=== PATIENT | male | born 1955 | race Caucasian/White ===

== ENCOUNTER → 2018-05-15 | Outpatient (CLI) | payer OTHER ==
[~2018-05-15] MED LIST: ASPI81EC; ATEN25 PO; ATEN50; ATEN50 PO; BENZ100A PO; CHOL10002 PO; ERYT.5TO OD; HYDACE10B PO; LISI20 PO; LISI5 PO; LORA1 PO; METF500 PO; NAPR550 PO; OMEP20ER; OMEP20ER PO; OXYACE5T PO
== END | disposition home or self-care (01) ==
LOC: LAB 09:32 → LAB SHORT 09:32
DX: L60.2 Onychogryphosis (principal); B35.1 Tinea unguium
CPT/HCPCS: 88305; 88312

== ENCOUNTER 2020-05-04 13:59 | Inpatient (IN) | payer MEDICARE, OTHER ==
[~2020-05-04] VITALS: Ht 170.2 cm; Wt 65.9 kg
[~2020-05-04 13:59] MED LIST changes: -CHOL10002 PO; +VITAMIN D31000 UNI1 PO
[2020-05-04] MEDS ORDERED: HYDCHL25 PO (14:03)
[2020-05-04] MEDS ORDERED: METFORMIN HCL1000 M2 PO (14:03)
[2020-05-04] MEDS ORDERED: Cymbalta30 MG PO (14:03)
[2020-05-04] MEDS ORDERED: ATOR40TA PO (14:04)
[2020-05-04] MEDS ORDERED: NEURONTIN300 MG PO (14:04)
[2020-05-04 14:25] LABS: BASOPHILS ABSOLUTE AUTO 0.04 K/mm3 (0.00-0.23); BASOPHILS PERCENT AUTO 0 % (0-2); EOSINOPHILS ABSOLUTE AUTO 0.01 K/mm3 (0.00-0.68); EOSINOPHILS PERCENT AUTO 0 % (0-6); Hematocrit 52.7 % (37.0-53.0); Hemoglobin 16.6 g/dL (13.5-17.5); IMMATURE GRAN PERCENT AUTO 1 % (0-1); LYMPHOCYTES ABSOLUTE AUTO 0.83 K/mm3 (0.84-5.20); LYMPHOCYTES PERCENT AUTO 5 % (21-46); MONOCYTES PERCENT AUTO 3 % (4-13); Mean Corpuscular HGB 30.5 pg (26.0-34.0); Mean Corpuscular HGB Conc 31.5 g/dL (31.5-36.5); Mean Corpuscular Volume 97 fL (80-100); Mean Platelet Volume 12.3 fL (9.1-12.4); NEUTROPHILS ABSOLUTE AUTO 16.68 K/mm3 (1.96-9.15); NEUTROPHILS PERCENT AUTO 91 % (41-73); Platelet Count 207 K/mm3 (150-400); RDW Coefficient Variation 12.8 % (11.7-14.2); RDW Standard Deviation 45.3 fL (35.1-46.3); Red Blood Cell Count 5.45 M/mm3 (4.30-5.90); White Blood Cell Count 18.26 K/mm3 (4.00-11.30)
[2020-05-04 14:45] LABS: Beta-hydroxybutyrate 11.4 mg/dL (0.2-2.8); Ethanol (Alcohol), Blood, Med <3 mg/dL
[2020-05-04 14:47] LABS: Alanine Aminotransfer (ALT/SGP 63 U/L (12-78); Albumin, Blood 3.3 g/dL (3.4-5.0); Albumin/Globulin Ratio 0.7 (0.8-1.8); Alk Phos 219 U/L (50-136); Anion Gap 5 mmol/L (6-16); Aspartate Aminotrans (AST/SGOT 18 U/L (12-37); Bilirubin, Total 0.4 mg/dL (0.1-1.0); Blood Urea Nitrogen 63 mg/dL (8-24); Bun/Creatinine Ratio 58.3 (12.0-20.0); CO2, Blood 28 mmol/L (21-32); Calcium, Blood 9.8 mg/dL (8.5-10.1); Chloride, Blood 109 mmol/L (98-108); Creatinine, Blood 1.08 mg/dL (0.60-1.20); Globulin, Blood 4.8 g/dL (2.2-4.0); Glomerular Filtration Rate >60 (60-); Glucose, Blood 1278 mg/dL (70-99); Potassium, Blood 5.4 mmol/L (3.5-5.5); Sodium, Blood 142 mmol/L (136-145); Total Protein, Blood 8.1 g/dL (6.4-8.2)
[2020-05-04 15:05] LABS: Base Excess Venous -0.9 mmol/L; Bicarbonate Venous 22.2 mmol/L (24.0-30.0); PCO2 Venous 53.1 mmHg (38-42); PO2 Venous 47.4 mmHg (38-42); pH Blood Venous 7.29 (7.34-7.37)
[2020-05-04 15:10] LABS: Source, Urine Clean Catch
[2020-05-04 15:40] LABS: U Amphetamine Screen DETECTED; U Barbituate Screen Not Detected; U Benzodiazapine Screen Not Detected; U Buprenorphine Screen Not Detected; U Cannabinoids Screen Not Detected; U Cocaine Screen Not Detected; U Methadone Screen Not Detected; U Methamphetamine Screen DETECTED; U Opiates Screen Not Detected; U Oxycodone Screen Not Detected; U Phencyclidine Screen Not Detected; U Propoxyphene Screen Not Detected
[2020-05-04 15:44] LABS: Appearance, Urine Clear (Clear); Bilirubin, Urine Neg (Neg); Blood, Urine Neg (Neg); Color, Urine Yellow (P-Yellow); Glucose Qualitative, Urine 4+ (Neg); Ketones, Urine 1+ (Neg); Leukocyte Esterase, Urine Neg (Neg); Nitrite, Urine Neg (Neg); Protein, Urine Neg (Neg); Urobilinogen, Urine NORM (Normal)
[2020-05-04 16:58] LABS: Glucose, Blood 943 mg/dL (70-99)
--- NOTE | 2020-05-04 17:58 | NUR ---
ADMIT PT ARRIVED TO ICU 2 AT 1555 FROM ED. PT DROWSY BUT WAKES TO VOICE, ABLE TO ROLL AROUND IN THE BED. INSULIN INFUSING. PT WAS ABLE TO ANSWER ADMIT QUESTIONS. SAYS HE STOPPED TAKING ALL MEDICATIONS 3 WEEKS AGO. ADMITS TO USING METH 2 DAYS AGO ONLY AFTER BEING TOLD HIS URINE TESTED POSITIVE FOR IT. IV FLUIDS HOOKED UP. CHEM BG STILL READS HIGH, AWAITING LAB RESULT. PT EDUCATED ON PLAN OF CARE FOR THE NIGHT.
[2020-05-04 18:41] LABS: Anion Gap 7 mmol/L (6-16); Blood Urea Nitrogen 53 mg/dL (8-24); Bun/Creatinine Ratio 52.5 (12.0-20.0); CO2, Blood 26 mmol/L (21-32); Calcium, Blood 9.7 mg/dL (8.5-10.1); Chloride, Blood 119 mmol/L (98-108); Creatinine, Blood 1.01 mg/dL (0.60-1.20); Glomerular Filtration Rate >60 (60-); Glucose, Blood 741 mg/dL (70-99); Potassium, Blood 3.7 mmol/L (3.5-5.5)
[2020-05-04 18:50] LABS: Sodium, Blood 152 mmol/L (136-145)
--- NOTE | 2020-05-04 19:24 | NUR ---
ASSESSMENT/ASSUMED CARE PT LYING IN BED WITH EYES CLOSED. OPENS EYES TO VERBAL STIMULI AND TOUCH. SPEECH SLOW. STATES,"I'M IN THE HOSPITAL IN [place] AND IT'S THE S". PT UNABLE TO TELL WHAT CITY. REORIENTED TO PLACE AND TIME. FOLLOWS INSTRUCTIONS FOR TURNING. LUNGS CLEAR ON ROOMAIR. RESP EVEN AND NONLABORED. DENIES COUGH OR SOB. HEART RATE REGULAR IN THE 90'S. BP STABLE. BT+ ABD SOFT AND NONTENDER. IV 20G TO LEFT AC SALINE LOCKED, SITE CLEAR, FLUSHED WITHOUT DIFFICULTY. IV 18G TO RIGHT WRIST WITH LR AT 200 ML/HR AND INSULIN GTT AT 5 UNITS/HR. SITE CLEAR. PT REPOSITIONING SELF. BACK TO SLEEP QUICKLY.
[2020-05-04 19:37] LABS: Glucose, Blood 703 mg/dL (70-99)
[2020-05-04 20:25] LABS: Glucose (ISTAT POC) 554 mg/dL (70-99)
[2020-05-04 21:15] LABS: Glucose (ISTAT POC) 482 mg/dL (70-99)
[2020-05-04 22:07] LABS: Anion Gap 5 mmol/L (6-16); Blood Urea Nitrogen 47 mg/dL (8-24); Bun/Creatinine Ratio 52.8 (12.0-20.0); CO2, Blood 27 mmol/L (21-32); Chloride, Blood 124 mmol/L (98-108); Creatinine, Blood 0.89 mg/dL (0.60-1.20); Glomerular Filtration Rate >60 (60-); Glucose, Blood 484 mg/dL (70-99); Potassium, Blood 3.9 mmol/L (3.5-5.5); Sodium, Blood 156 mmol/L (136-145)
--- NOTE | 2020-05-04 22:22 | NUR ---
CALL TO HOSPITALIST CALL TO JANKI LOVE HOSPITALIST REGARDING NA LEVEL 156 AND CHLORIDE LEVEL 124. ORDER TO CHANGE IV FLUID TO D5 1/2 NS AT 200 ML/HR NOW.
[2020-05-05 02:01] LABS: BASOPHILS ABSOLUTE AUTO 0.05 K/mm3 (0.00-0.23); BASOPHILS PERCENT AUTO 0 % (0-2); EOSINOPHILS ABSOLUTE AUTO 0.32 K/mm3 (0.00-0.68); EOSINOPHILS PERCENT AUTO 2 % (0-6); Hematocrit 44.4 % (37.0-53.0); Hemoglobin 14.2 g/dL (13.5-17.5); IMMATURE GRAN ABSOLUTE AUTO 0.06 K/mm3 (0.00-0.10); IMMATURE GRAN PERCENT AUTO 0 % (0-1); LYMPHOCYTES ABSOLUTE AUTO 2.15 K/mm3 (0.84-5.20); LYMPHOCYTES PERCENT AUTO 14 % (21-46); MONOCYTES ABSOLUTE AUTO 0.66 K/mm3 (0.16-1.47); MONOCYTES PERCENT AUTO 4 % (4-13); Mean Corpuscular HGB 29.9 pg (26.0-34.0); Mean Platelet Volume 11.7 fL (9.1-12.4); NEUTROPHILS ABSOLUTE AUTO 12.26 K/mm3 (1.96-9.15); NEUTROPHILS PERCENT AUTO 79 % (41-73); Platelet Count 183 K/mm3 (150-400); RDW Coefficient Variation 13.1 % (11.7-14.2); RDW Standard Deviation 45.1 fL (35.1-46.3); Red Blood Cell Count 4.75 M/mm3 (4.30-5.90)
[2020-05-05 02:02] LABS: Mean Corpuscular Volume 94 fL (80-100)
[2020-05-05 02:14] LABS: Anion Gap 0 mmol/L (6-16); Blood Urea Nitrogen 40 mg/dL (8-24); Bun/Creatinine Ratio 41.4 (12.0-20.0); CO2, Blood 32 mmol/L (21-32); Calcium, Blood 9.3 mg/dL (8.5-10.1); Chloride, Blood 127 mmol/L (98-108); Creatinine, Blood 0.97 mg/dL (0.60-1.20); Glomerular Filtration Rate >60 (60-); Glucose, Blood 289 mg/dL (70-99); Potassium, Blood 3.8 mmol/L (3.5-5.5); Sodium, Blood 159 mmol/L (136-145)
--- NOTE | 2020-05-05 03:16 | NUR ---
IV FLUID CALL TO DR STOCKTON REGARDING INCREASE IN SODIUM, CHANGED IV FLUID TO D5W AT 100 ML/HR FOR 1 1/2 LITERS
--- NOTE | 2020-05-05 04:50 | NUR ---
BLOOD GLUCOSE PLACED INSULIN ON HOLD BLOOD GLUCOSE DOWN TO 101. CONT PT ON D5W AT 100 ML/HR.
--- NOTE | 2020-05-05 05:56 | NUR ---
SHIFT SUMMARY PT SLEEPING, AWAKENS EASILY. PT MOVING SELF IN BED. BED ALARM ON. PT BACK TO SLEEP QUICKLY WHEN UNDISTURBED. DENIES PAIN. A&O TO SELF AND PLACE ONLY. REORIENTED FREQUENTLY. NOT USING THE CALL LIGHT. IV FLUID CHANGED FROM LR TO D5 1/2 THAN TO D5W AT 100 ML/HR DUE TO INCREASE IN SODIUM LEVELS. INSULIN GTT STOPPED FOR ONE HOUR BUT RESTARTED AT 0545 AT 2 UNITS/HR DUE TO BLOOD GLUCOSE AT 211 FROM 101. LABS SENT AT 0545. VSS. REPORT TO ON COMING NURSE
[2020-05-05 06:15] LABS: Anion Gap 0 mmol/L (6-16); Blood Urea Nitrogen 34 mg/dL (8-24); Bun/Creatinine Ratio 35.6 (12.0-20.0); CO2, Blood 32 mmol/L (21-32); Chloride, Blood 127 mmol/L (98-108); Creatinine, Blood 0.96 mg/dL (0.60-1.20); Glomerular Filtration Rate >60 (60-); Glucose, Blood 211 mg/dL (70-99); Potassium, Blood 4.3 mmol/L (3.5-5.5); Sodium, Blood 159 mmol/L (136-145)
--- NOTE | 2020-05-05 08:00 | NUR ---
PT OPENED HIS EYES TO VOICE. ORIENTED TO PERSON, PLACE, AND ABLE TO STATE HIS FULL NAME, , AND THE YEAR. PT DENIES PAIN. GENERALLY WEAK, BUT VANG AND ABLE TO REPOSITION HIMSELF IN BED WITH VERBAL PROMPT. PT VERBAL RESPONSES ARE SLOW, BUT HE APPEARS LESS CONFUSED THIS AM. ECG SHOWS ST. BP WDL. LUNGS CLEARS-NO NOTED SOB OR COUGH. MAINTAINS SATS>90% ON RA. NPO EXCEPT FOR MEDS. PT ABLE TO TAKE HIS PO MEDS WITH SIPS OF H2O WITHOUT DIFFICULTY. HE DENIES NAUSEA THIS AM. AM CARE DONE AND OFFERED PT THE URINAL. PT ATTEMPTED TO VOID, BUT STATES "I JUST DON'T FEEL LIKE I HAVE TO GO."
--- NOTE | 2020-05-05 08:42 | NUR ---
DR. BARROS IN TO SEE PT. ORDERS RECEIVED. IVF INCREASED TO 150 CC/HR. WILL INITIATE CLEAR LIQUID DIET TOLERATED. RE-CHECK ELECTROLYTES @ 1500.
[2020-05-05 15:44] LABS: Anion Gap 2 mmol/L (6-16); Blood Urea Nitrogen 31 mg/dL (8-24); Bun/Creatinine Ratio 31.5 (12.0-20.0); CO2, Blood 29 mmol/L (21-32); Calcium, Blood 8.7 mg/dL (8.5-10.1); Chloride, Blood 117 mmol/L (98-108); Creatinine, Blood 0.98 mg/dL (0.60-1.20); Glomerular Filtration Rate >60 (60-); Glucose, Blood 590 mg/dL (70-99); Potassium, Blood 3.7 mmol/L (3.5-5.5)
[2020-05-05 15:51] LABS: Sodium, Blood 148 mmol/L (136-145)
--- NOTE | 2020-05-05 16:15 | NUR ---
PT RESTING QUIETLY WHEN NOT DISTURBED. A&O X 3 WHILE AWAKE. CHEMISTRY RESULTS PHONED TO DR. BIRMINGHAM. AWARE THAT GLUCOSE 590. D5 DISCONTINUED. PT MED WITH LANTUS 10 UNITS SC AND 12 UNITS HUMALOG PER SLIDING SCALE-RE CHECK CBG IN 1 HOUR. REPORT PHONED TO KHADAR TEJEDA IN PREP TO TRANSFER PT TO ROOM 336.
--- NOTE | 2020-05-05 17:28 | NUR ---
1705 ASSUMED CARE OF PT. REPORT FROM DAMEON RUBALCAVA. PT ALERT AND ORIENTED AND ABLE TO EXPRESS HIS NEEDS. PT ABLE TO TRANSFER TO BED VIA FWW. PT RESTING AT THIS TIME. CALL LIGHT WITHIN REACH.
--- NOTE | 2020-05-05 18:21 | NUR ---
PT TRANSFERRED THIS SHIFT FROM ICU. HE IS RESTING IN BED, NO COMPLAINTS. CALL LIGHT WITHIN REACH. NO ACUTE CHANGES.
[2020-05-06 05:32] LABS: BASOPHILS ABSOLUTE AUTO 0.04 K/mm3 (0.00-0.23); BASOPHILS PERCENT AUTO 0 % (0-2); EOSINOPHILS ABSOLUTE AUTO 0.53 K/mm3 (0.00-0.68); EOSINOPHILS PERCENT AUTO 4 % (0-6); Hematocrit 46.7 % (37.0-53.0); Hemoglobin 14.9 g/dL (13.5-17.5); IMMATURE GRAN ABSOLUTE AUTO 0.06 K/mm3 (0.00-0.10); IMMATURE GRAN PERCENT AUTO 1 % (0-1); LYMPHOCYTES PERCENT AUTO 15 % (21-46); MONOCYTES PERCENT AUTO 7 % (4-13); Mean Corpuscular HGB 30.5 pg (26.0-34.0); Mean Corpuscular HGB Conc 31.9 g/dL (31.5-36.5); Mean Corpuscular Volume 96 fL (80-100); Mean Platelet Volume 11.4 fL (9.1-12.4); NEUTROPHILS ABSOLUTE AUTO 8.82 K/mm3 (1.96-9.15); NEUTROPHILS PERCENT AUTO 73 % (41-73); Platelet Count 158 K/mm3 (150-400); RDW Coefficient Variation 13.3 % (11.7-14.2); RDW Standard Deviation 47.4 fL (35.1-46.3); Red Blood Cell Count 4.88 M/mm3 (4.30-5.90); White Blood Cell Count 12.05 K/mm3 (4.00-11.30)
[2020-05-06 06:06] LABS: Alanine Aminotransfer (ALT/SGP 36 U/L (12-78); Albumin, Blood 2.5 g/dL (3.4-5.0); Albumin/Globulin Ratio 0.6 (0.8-1.8); Alk Phos 144 U/L (50-136); Anion Gap 3 mmol/L (6-16); Aspartate Aminotrans (AST/SGOT 18 U/L (12-37); Bilirubin, Total 0.6 mg/dL (0.1-1.0); Blood Urea Nitrogen 27 mg/dL (8-24); Bun/Creatinine Ratio 26.2 (12.0-20.0); CO2, Blood 31 mmol/L (21-32); Chloride, Blood 115 mmol/L (98-108); Creatinine, Blood 1.03 mg/dL (0.60-1.20); Glomerular Filtration Rate >60 (60-); Glucose, Blood 380 mg/dL (70-99); Potassium, Blood 3.8 mmol/L (3.5-5.5); Sodium, Blood 149 mmol/L (136-145); Total Protein, Blood 6.5 g/dL (6.4-8.2)
--- NOTE | 2020-05-06 06:21 | NUR ---
SHIFT SUMMARY PT IS A 65 Y/O MALE, ADMITTED FOR HYPERGLYCEMIA. HE IS A&O X 3, SBA TO THE BATHROOM C A FWW. AT HS, PT'S BLOOD SUGAR WAS 485. THE HOSPITALIST RUBBER CUTTING MACHINE TENDER JANKI WAS NOTIFIED, AND A OT DOSE OF HUMALOG 12 UNITS WAS ORDERED AND ADMINISTERED. PER AM LABS, PT'S AM BLOOD SUGAR WAS 380. NO COMPLAINTS OF PAIN, NAUSEA OR SOB. VITAL SIGNS STABLE. NO ACUTE CHANGES IN PT CONDITION NOTED. WILL CONTINUE TO MONITOR AND TREAT PER EMAR UNTIL HAND OFF TO DAY SHIFT RN.
--- NOTE | 2020-05-06 11:44 | NUR ---
CALLED DR BIRMINGHAM, G 472. GIVE 20 U HUMALOG.
--- NOTE | 2020-05-06 13:00 | NUR ---
SPOKE TO DR MALIK SIERRA THIS AM. DR CARY WILL REVIEW.
--- NOTE | 2020-05-06 18:26 | NUR ---
PT PLEASANT TODAY. SUGAR DOWN A LITTLE THIS CRISTINA AT 298. HIGH SLIDING SCALE STARTED THIS CRISTINA. BP WAS UP THIS AM AND NOON. NEW ORDERS. BP DOWN WITH NEW BP MED STARTED MIDDAY TODAY. NO NEW CONCERNS AT THIS TIME. BED IN LOW POSITION, CALL LITE IN REACH, CALLS APPROP
--- NOTE | 2020-05-07 05:20 | NUR ---
SHIFT SUMMARY PT IS A 65 Y/O MALE, ADMITTED FOR HYPERGLYCEMIA. HE IS A&O X 3, INDEPENDENT IN THE ROOM WITH A FWW. HS BLOOD SUGAR WAS STILL ELEVATED AT 323. NO COMPLAINTS OF PAIN, NAUSEA OR SOB DURING THE NIGHT. VITAL SIGNS STABLE. NO ACUTE CHANGES IN PT CONDITION NOTED DURING THE NIGHT. WILL CONTINUE TO MONITOR AND TREAT PER EMAR UNTIL HAND OFF TO DAY SHIFT RN.
[2020-05-07 06:03] LABS: BASOPHILS ABSOLUTE AUTO 0.02 K/mm3 (0.00-0.23); BASOPHILS PERCENT AUTO 0 % (0-2); EOSINOPHILS ABSOLUTE AUTO 0.38 K/mm3 (0.00-0.68); EOSINOPHILS PERCENT AUTO 5 % (0-6); Hemoglobin 13.5 g/dL (13.5-17.5); IMMATURE GRAN ABSOLUTE AUTO 0.03 K/mm3 (0.00-0.10); IMMATURE GRAN PERCENT AUTO 0 % (0-1); LYMPHOCYTES ABSOLUTE AUTO 1.75 K/mm3 (0.84-5.20); LYMPHOCYTES PERCENT AUTO 21 % (21-46); MONOCYTES ABSOLUTE AUTO 0.48 K/mm3 (0.16-1.47); MONOCYTES PERCENT AUTO 6 % (4-13); Mean Corpuscular HGB 30.5 pg (26.0-34.0); Mean Corpuscular HGB Conc 32.1 g/dL (31.5-36.5); Mean Corpuscular Volume 95 fL (80-100); Mean Platelet Volume 11.8 fL (9.1-12.4); NEUTROPHILS ABSOLUTE AUTO 5.85 K/mm3 (1.96-9.15); NEUTROPHILS PERCENT AUTO 69 % (41-73); Platelet Count 152 K/mm3 (150-400); RDW Coefficient Variation 12.5 % (11.7-14.2); RDW Standard Deviation 43.8 fL (35.1-46.3); Red Blood Cell Count 4.43 M/mm3 (4.30-5.90); White Blood Cell Count 8.51 K/mm3 (4.00-11.30)
[2020-05-07 06:28] LABS: Alanine Aminotransfer (ALT/SGP 34 U/L (12-78); Albumin, Blood 2.2 g/dL (3.4-5.0); Albumin/Globulin Ratio 0.6 (0.8-1.8); Alk Phos 124 U/L (50-136); Anion Gap 6 mmol/L (6-16); Aspartate Aminotrans (AST/SGOT 21 U/L (12-37); Bilirubin, Total 0.8 mg/dL (0.1-1.0); Blood Urea Nitrogen 24 mg/dL (8-24); Bun/Creatinine Ratio 26.6 (12.0-20.0); CO2, Blood 28 mmol/L (21-32); Calcium, Blood 8.4 mg/dL (8.5-10.1); Chloride, Blood 109 mmol/L (98-108); Globulin, Blood 3.8 g/dL (2.2-4.0); Glomerular Filtration Rate >60 (60-); Glucose, Blood 317 mg/dL (70-99); Potassium, Blood 3.5 mmol/L (3.5-5.5); Sodium, Blood 143 mmol/L (136-145)
[2020-05-07] MEDS ORDERED: AMLO5 PO (11:50)
[2020-05-07] MEDS ORDERED: GLIP5 PO (11:51)
[2020-05-07] MEDS ORDERED: BASAGLAR K100 UNIT/1 SC (11:51)
[2020-05-07] MEDS ORDERED: NICO21TP TOP (11:52)
[2020-05-07] MEDS ORDERED: HUMALOG KW100 UNIT/1 SC (11:52)
--- NOTE | 2020-05-07 12:30 | NUR ---
DISCHARGE SUMMARY PATIENT IS ALERT AND ORIENTED. HIS IV WAS REMOVED. PATIENT WAS WALKED THROUGH HIS INSULIN ADMINISTRATION. NURSE WALKED THE PATIENT THROUGH WHERE TO INSERT HIS INSULIN AND HOW TO ADMINISTER WELL HOW MUCH. PATIENT WHEELED DOWN BY SAMPLE HAND.
== END 2020-05-07 12:25 | disposition home or self-care (01) | DRG 638 ==
LOC: ER 13:59 → ICUW 16:03 → ICUE 16:03 → ICUW 16:03 → ICUE 16:29 → MEDS 05-05 17:02
PROVIDERS: Internal Medicine; Nurse Practitioner Acute Care; Student in an Organized Health Care Education/Training Program; ADMIT Hospitalist
DX: E11.00 Type 2 diabetes mellitus with hyperosmolarity without nonketotic hyperglycemic-hyperosmolar coma (NKHHC) (principal); E87.0 Hyperosmolality and hypernatremia; I10 Essential (primary) hypertension; F17.210 Nicotine dependence, cigarettes, uncomplicated; F19.10 Other psychoactive substance abuse, uncomplicated; J44.9 Chronic obstructive pulmonary disease, unspecified; Z91.14 Patient's other noncompliance with medication regimen; Z88.0 Allergy status to penicillin; Z79.84 Long term (current) use of oral hypoglycemic drugs
CPT/HCPCS: 36415; 71045; 80048; 80053; 81003; 82010; 82803; 82947; 83690; 85025; 96361; 96374; 99285-25; A9270; A9270-GY; G0480; J1650; J1815; J2405; J7042; J7070; J7120

== ENCOUNTER 2021-11-16 17:56 | Inpatient (IN) | payer MEDICARE, OTHER ==
[~2021-11-16] VITALS: Ht 172.7 cm; Wt 60.1 kg
[~2021-11-16 17:56] MED LIST changes: +AMLO5 PO; +ATOR20 PO; +BASAGLAR K100 UNIT/1 SC; +Cymbalta30 MG PO; +GLIP5 PO; +HUMALOG KW100 UNIT/1 SC; +HYDCHL25 PO; +METFORMIN HCL1000 M2 PO; +NEURONTIN300 MG PO; +NICO21TP TOP
[2021-11-16 18:33] LABS: BASOPHILS ABSOLUTE AUTO 0.02 K/mm3 (0.00-0.23); BASOPHILS PERCENT AUTO 0 % (0-2); EOSINOPHILS ABSOLUTE AUTO 0.01 K/mm3 (0.00-0.68); EOSINOPHILS PERCENT AUTO 0 % (0-6); Hematocrit 46.8 % (37.0-53.0); Hemoglobin 15.8 g/dL (13.5-17.5); IMMATURE GRAN ABSOLUTE AUTO 0.08 K/mm3 (0.00-0.10); IMMATURE GRAN PERCENT AUTO 1 % (0-1); LYMPHOCYTES ABSOLUTE AUTO 0.94 K/mm3 (0.84-5.20); LYMPHOCYTES PERCENT AUTO 7 % (21-46); MONOCYTES ABSOLUTE AUTO 0.39 K/mm3 (0.16-1.47); MONOCYTES PERCENT AUTO 3 % (4-13); Mean Corpuscular HGB 31.4 pg (26.0-34.0); Mean Corpuscular HGB Conc 33.8 g/dL (31.5-36.5); Mean Corpuscular Volume 93 fL (80-100); Mean Platelet Volume 12.8 fL (9.1-12.4); NEUTROPHILS ABSOLUTE AUTO 12.29 K/mm3 (1.96-9.15); NEUTROPHILS PERCENT AUTO 90 % (41-73); Platelet Count 235 K/mm3 (150-400); RDW Coefficient Variation 12.6 % (11.7-14.2); RDW Standard Deviation 43.5 fL (35.1-46.3); Red Blood Cell Count 5.03 M/mm3 (4.30-5.90); White Blood Cell Count 13.73 K/mm3 (4.00-11.30)
[2021-11-16 18:59] LABS: Base Excess Venous -2.4 mmol/L; Bicarbonate Venous 22.1 mmol/L (24.0-30.0); PCO2 Venous 45.7 mmHg (38-42); PO2 Venous 87.1 mmHg (38-42); pH Blood Venous 7.32 (7.34-7.37)
[2021-11-16 19:09] LABS: U Amphetamine Screen Not Detected; U Barbituate Screen Not Detected; U Benzodiazapine Screen Not Detected; U Cannabinoids Screen Not Detected; U Cocaine Screen Not Detected; U Methadone Screen Not Detected; U Methamphetamine Screen Not Detected; U Opiates Screen Not Detected; U Phencyclidine Screen Not Detected
[2021-11-16 19:10] LABS: U Buprenorphine Screen Not Detected; U Oxycodone Screen Not Detected; U Propoxyphene Screen Not Detected
[2021-11-16 19:10] LABS: Troponin I <0.015 ng/mL (0.000-0.040)
[2021-11-16 19:14] LABS: Thyroid Stimulating Hormone 0.218 uIU/mL (0.360-4.800)
[2021-11-16 19:26] LABS: Alanine Aminotransfer (ALT/SGP 37 U/L (12-78); Albumin, Blood 2.9 g/dL (3.4-5.0); Albumin/Globulin Ratio 0.7 (0.8-1.8); Alk Phos 176 U/L (50-136); Anion Gap 11 mmol/L (6-16); Aspartate Aminotrans (AST/SGOT 19 U/L (12-37); Bilirubin, Total 0.4 mg/dL (0.1-1.0); Blood Urea Nitrogen 92 mg/dL (8-24); Bun/Creatinine Ratio 69.2 (12.0-20.0); CO2, Blood 22 mmol/L (21-32); Calcium, Blood 9.1 mg/dL (8.5-10.1); Chloride, Blood 105 mmol/L (98-108); Creatinine, Blood 1.33 mg/dL (0.60-1.20); Globulin, Blood 4.2 g/dL (2.2-4.0); Glomerular Filtration Rate 54 (60-); Glucose, Blood 1359 mg/dL (70-99); Potassium, Blood 5.4 mmol/L (3.5-5.5); Sodium, Blood 138 mmol/L (136-145); Total Protein, Blood 7.1 g/dL (6.4-8.2)
[2021-11-16 19:29] LABS: Influenza A, PCR NEGATIVE (NEGATIVE); Influenza B, PCR NEGATIVE (NEGATIVE); Resp Syncytial Virus, PCR NEGATIVE (NEGATIVE); SARS-Cov-2 (COVID-19) PCR, MMC NEGATIVE (NEGATIVE)
[2021-11-16 20:39] LABS: Thyroxine (T4) 7.2 ug/dL (4.5-12.1)
[2021-11-16 20:41] LABS: Triiodothyronine, Free 2.07 pg/mL (2.18-3.98)
[2021-11-16 21:07] LABS: Bun/Creatinine Ratio 68.5 (12.0-20.0); Calcium, Blood 8.4 mg/dL (8.5-10.1); Creatinine, Blood 1.27 mg/dL (0.60-1.20); Potassium, Blood 4.9 mmol/L (3.5-5.5)
--- NOTE | 2021-11-16 22:00 | NUR ---
Recieved patient from ED, admission complete. confused to time and situation. insulin drip infusing. partial bath given due to poor hygiene. feet very dirty and stained, unable to clean due to pain in feet. yells out with touch. falls asleep when nurse not talking to, wakes up very disoriented, not knowing what location and situation is. easily calmed.
[2021-11-16 22:38] LABS: Glucose, Blood 878 mg/dL (70-99)
[2021-11-17 00:24] LABS: Glucose, Blood 663 mg/dL (70-99)
[2021-11-17 01:43] LABS: Anion Gap 7 mmol/L (6-16); Blood Urea Nitrogen 81 mg/dL (8-24); Bun/Creatinine Ratio 67.5 (12.0-20.0); CO2, Blood 26 mmol/L (21-32); Calcium, Blood 8.8 mg/dL (8.5-10.1); Chloride, Blood 120 mmol/L (98-108); Glomerular Filtration Rate >60 (60-); Glucose, Blood 556 mg/dL (70-99); Potassium, Blood 4.2 mmol/L (3.5-5.5); Sodium, Blood 153 mmol/L (136-145)
[2021-11-17 03:50] LABS: BASOPHILS ABSOLUTE AUTO 0.03 K/mm3 (0.00-0.23); BASOPHILS PERCENT AUTO 0 % (0-2); EOSINOPHILS ABSOLUTE AUTO 0.11 K/mm3 (0.00-0.68); EOSINOPHILS PERCENT AUTO 1 % (0-6); Hematocrit 37.9 % (37.0-53.0); IMMATURE GRAN ABSOLUTE AUTO 0.09 K/mm3 (0.00-0.10); IMMATURE GRAN PERCENT AUTO 1 % (0-1); LYMPHOCYTES ABSOLUTE AUTO 1.92 K/mm3 (0.84-5.20); LYMPHOCYTES PERCENT AUTO 12 % (21-46); MONOCYTES ABSOLUTE AUTO 0.47 K/mm3 (0.16-1.47); MONOCYTES PERCENT AUTO 3 % (4-13); Mean Corpuscular HGB 31.4 pg (26.0-34.0); Mean Corpuscular HGB Conc 34.3 g/dL (31.5-36.5); Mean Corpuscular Volume 92 fL (80-100); Mean Platelet Volume 12.1 fL (9.1-12.4); NEUTROPHILS ABSOLUTE AUTO 12.89 K/mm3 (1.96-9.15); NEUTROPHILS PERCENT AUTO 83 % (41-73); Platelet Count 229 K/mm3 (150-400); RDW Coefficient Variation 12.8 % (11.7-14.2); RDW Standard Deviation 42.1 fL (35.1-46.3); Red Blood Cell Count 4.14 M/mm3 (4.30-5.90); White Blood Cell Count 15.51 K/mm3 (4.00-11.30)
[2021-11-17 05:07] LABS: Alanine Aminotransfer (ALT/SGP 35 U/L (12-78); Albumin, Blood 2.4 g/dL (3.4-5.0); Albumin/Globulin Ratio 0.8 (0.8-1.8); Alk Phos 140 U/L (50-136); Anion Gap 6 mmol/L (6-16); Aspartate Aminotrans (AST/SGOT 20 U/L (12-37); Bilirubin, Total 0.3 mg/dL (0.1-1.0); Blood Urea Nitrogen 77 mg/dL (8-24); CO2, Blood 26 mmol/L (21-32); Calcium, Blood 8.5 mg/dL (8.5-10.1); Chloride, Blood 120 mmol/L (98-108); Creatinine, Blood 1.15 mg/dL (0.60-1.20); Globulin, Blood 3.2 g/dL (2.2-4.0); Glomerular Filtration Rate >60 (60-); Glucose, Blood 382 mg/dL (70-99); Magnesium, Blood 2.4 mg/dL (1.6-2.4); Phosphorus, Blood 3.4 mg/dL (2.5-4.9); Potassium, Blood 4.4 mmol/L (3.5-5.5); Sodium, Blood 152 mmol/L (136-145); Total Protein, Blood 5.6 g/dL (6.4-8.2)
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
--- NOTE | 2021-11-17 07:58 | NUR ---
ADEBAYO from [facility] RN at 0715. 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 Anxiety inferred. Patient is oriented to self/place/situation but repeatedly states it is year 2002 even after correction. Negative for ICU delirium per SAVEHARRT assessment. Dr. Hoyt notified at 0755 of potential for alcohol withdrawal with CIWA 12-14; pt states last drink 2 days ago, states long hx of daily alcohol use consistent with spouse description of many years of ETOH abuse. Recommended consideration for CIWA protocol. Wrapped IVs as pt is pullling at lines.
[2021-11-17 09:17] LABS: Anion Gap 3 mmol/L (6-16); Blood Urea Nitrogen 62 mg/dL (8-24); CO2, Blood 24 mmol/L (21-32); Calcium, Blood 8.2 mg/dL (8.5-10.1); Chloride, Blood 119 mmol/L (98-108); Creatinine, Blood 1.05 mg/dL (0.60-1.20); Glomerular Filtration Rate >60 (60-); Glucose, Blood 262 mg/dL (70-99); Potassium, Blood 4.1 mmol/L (3.5-5.5); Sodium, Blood 146 mmol/L (136-145)
--- NOTE | 2021-11-17 09:43 | NUR ---
0930: PT APPEARS MUCH MORE CALM/LESS AGITATED WITH NO HALLUCINATIONS X 1 HR. CIWA 7. MD AWARE. VERBAL ORDERS FROM DR. PLASCENCIA TO GIVE 10 UNITS SC INSULIN GLARGINE ONCE. PLAN TO D/C INSULIN GTT IF BGL <250MG/DL X 6 HRS. PLAN FOR 1 ADDITIONAL LITER OF 1/2 NS AT 100ML/HR. CALL MD IN AFTERNOON FOR POTENTIAL REVIEW FOR STATUS CHANGE.
--- NOTE | 2021-11-17 09:48 | NUR ---
PT UP TO COMMODE W/O ADVERSE EVENT. 0945: US AT BEDSIDE (ECHO).
--- NOTE | 2021-11-17 12:51 | NUR ---
PT ATE 100% OF LUNCH. UP TO COMMODE WITH ASSISTANCE, UNSTEADY GAIT. CHANGED ALL LINENS/GOWN.
--- NOTE | 2021-11-17 14:23 | NUR ---
OXYGEN @ 1415: PT O2 SATS IN 87-89% RANGE WHEN PATIENT ATTEMPTING TO SLEEP. INCREASED COUGHING NOTED, SOME NASAL DISCHARGE. MD NOTIFIED OF INCREASED OXYGEN REQUIREMENT. PT DENIES CP/SOB. ON 2L PER NC, SATS 93-94%. 1430: BLOOD DRAWN AND SENT TO LAB. GLUCOMETER CLEANED AFTER USE.
[2021-11-17 15:07] LABS: Source, Urine Clean Catch
[2021-11-17 15:10] LABS: Appearance, Urine Clear (Clear); Bilirubin, Urine Neg (Neg); Blood, Urine Neg (Neg); Color, Urine Yellow (P-Yellow); Glucose Qualitative, Urine 4+ (Neg); Ketones, Urine Neg (Neg); Leukocyte Esterase, Urine 1+ (Neg); Nitrite, Urine Neg (Neg); Protein, Urine 1+ (Neg); Specific Gravity, Urine 1.015 (1.003-1.022); Urobilinogen, Urine NORM (Normal)
[2021-11-17 15:13] LABS: Bacteria Rare /hpf; Mucus Light (0-Heavy); Red Blood Cells, Urine 0-2 /hpf (0-2); Squamous Epithelial Cells Rare /hpf (Few)
--- NOTE | 2021-11-17 17:01 | NUR ---
SHIFT SUMMARY NEURO: PT STILL NOT ORIENTED TO YEAR ([facility] 2002). PT WITH CIWA 8-14 THROUGHOUT SHIFT, CONTROLLED WITH LIBRIUM Q2HRS. LAST HALLUCINATIONS AT APPROXIMATELY 1630, "DARK FIGURES GOING AROUND" HIS ROOM. PT ALSO ATTEMPTED TO CLIMB OUT OF BED AND WAS EATING HIS SOCK, STATING HE THOUGHT IT WAS BREAD. PT RESPONDS WELL TO LIBRIUM WITH ASSOCIATED REDUCTION IN CIWA/RESOLUTION OF HALLUCINATIONS. PT SLEPT APPROXIMATELY 1 HR. CARDIAC: VSS, AFEBRILE. STILL RECEIVING 1/2 NS AT 100ML/HR AND INSULIN GTT AT 2U/HR. MAY DISCONTINUE INSULIN GTT AFTER 6 HRS OF BGL <250MG/DL. RETIMED BGL FOR HOURLY. ECHO PERFORMED. RESP: PT WITH INCREASED COUGHING THROUGHOUT SHIFT AND NASAL SECRETIONS, WITH INCREASED OXYGEN REQUIREMENT RESULTING IN NASAL CANNULA 2LPM. XRAY PERFORMED. GI: PT ATE 100% OF MEALS. ATTEMPTED BOWEL MOVEMENT X 2, NONE. : VOIDED PER URINAL AND VIA COMMODE, WITH ASSISTANCE. UOP 600ML. MK/INT: GENERALIZED WEAKNESS, FALL RISK WITH BED ALARMS ON AND DIRECT LINE OF SIGHT FROM NURSING STATION. WRAPPED IVS DUE TO PT OCCASIONALLY PICKING AT DRESSINGS. PSYCH: NO CONTACT WITH FAMILY SO FAR DURING THIS SHIFT.
--- NOTE | 2021-11-17 18:22 | NUR ---
ECHOCARDIOGRAM COMPLETE
--- NOTE | 2021-11-17 20:00 | NUR ---
assumed care after report recieved Assessment complete, having hallucinations. very anxious and very restless. attempting to climb out of bed. will not calm or redirect. CWA score 30. Ativan given. temp 99.2, had stated hurting all over. attempted to give tylenol but fell asleep after ativan given and not awake enough to take po meds. will continue to monitor temp
--- NOTE | 2021-11-17 21:54 | NUR ---
TEMP 102.9, UA sent today but no blood cultures. Dr Cooper called, orders recived.
--- NOTE | 2021-11-17 23:15 | NUR ---
awake, able to take tylenol, very anxious with CIWA at 31. ativan given. incont of urine. cool bath given and linen changed. external condom cath placed.
[2021-11-18 03:21] LABS: Hemoglobin 12.2 g/dL (13.5-17.5); Mean Corpuscular HGB 31.9 pg (26.0-34.0); Mean Corpuscular HGB Conc 33.9 g/dL (31.5-36.5); Mean Corpuscular Volume 94 fL (80-100); Platelet Count 146 K/mm3 (150-400); RDW Coefficient Variation 12.9 % (11.7-14.2); RDW Standard Deviation 44.2 fL (35.1-46.3); Red Blood Cell Count 3.83 M/mm3 (4.30-5.90); White Blood Cell Count 11.52 K/mm3 (4.00-11.30)
[2021-11-18 03:57] LABS: BAND PERCENT MAN 8 % (0-8); BASOPHILS ABSOLUTE MAN 0.11 K/mm3 (0.00-0.23); BASOPHILS PERCENT MAN 1 % (0-2); EOSINOPHILS PERCENT MAN 0 % (0-6); LYMPHOCYTES ABSOLUTE MAN 3.11 K/mm3 (0.84-5.20); LYMPHOCYTES PERCENT MAN 27 % (21-46); MONOCYTES ABSOLUTE MAN 0.46 K/mm3 (0.16-1.47); MONOCYTES PERCENT MAN 4 % (4-13); NEUTROPHILS ABSOLUTE MAN 7.83 K/mm3 (1.96-9.15); SEG NEUTROPHILS PERCENT MAN 60 % (41-73); TOTAL CELLS COUNTED 100
[2021-11-18 04:11] LABS: Anion Gap 6 mmol/L (6-16); Blood Urea Nitrogen 40 mg/dL (8-24); Bun/Creatinine Ratio 34.2 (12.0-20.0); CO2, Blood 24 mmol/L (21-32); Calcium, Blood 8.4 mg/dL (8.5-10.1); Chloride, Blood 120 mmol/L (98-108); Creatinine, Blood 1.17 mg/dL (0.60-1.20); Glomerular Filtration Rate >60 (60-); Glucose, Blood 337 mg/dL (70-99); Phosphorus, Blood 3.6 mg/dL (2.5-4.9); Potassium, Blood 4.6 mmol/L (3.5-5.5); Sodium, Blood 150 mmol/L (136-145)
--- NOTE | 2021-11-18 05:33 | NUR ---
Very anxious at beginning of shift with CIWA 30, ativan given twice. Rested most of night with occasional restlessness. Temp spike of 102.9. blood cultures drawn and tylenol given. responded well to tylenol. Has had hiccups all through out shift. Hiccups will cease for a short time then will resume. resting quietly at this time. does not fully wake with stimulation.
--- NOTE | 2021-11-18 06:15 | NUR ---
ativan given for CIWA of 31, woke attempting to get out of bed, constant thrashing in bed. too weak to sit up but constant attempts. pulling off gown and wires. unable to redirect, states 'has to get to the store to buy some alchol".
--- NOTE | 2021-11-18 17:40 | NUR ---
SHIFT SUMMARY PT REMAINS SOMNOLENT WITH PERIODS OF RESTLESSNESS. PT UNABLE TO BE REDIRECTED OR REORIENTED. PT MOANS OUT AT TIMES, BUT NO COMPREHENSABLE SPEECH NOTED. PT WITH CIWA'S BETWEEN 15-30 THIS SHIFT. PT MED WITH ATIVAN PER EMAR. IV'S REMAIN C/D/I WITH 1/2 NS INFUSING AT 100 ML/HR. PT WITH ATTENDS IN PLACE WITH MULTIPLE INCONTINENT VOIDS THIS SHIFT. PT HAS TURNED SELF SIDE TO SIDE IN BED INDEPENDENTLY. VITAL SIGNS REMAIN STABLE. WILL CONTINUE TO MONITOR AND REPORT OFF TO ONCOMING RN.
--- NOTE | 2021-11-18 20:00 | NUR ---
Assumed care after report recieved. assessment complete. Somulent at this time with intermittent moving around in bed. Will moan and mumble with stimulus, but does not answer questions or follow commands. upper lobes lungs bilat coarse. has loose cough but weak and unable to cough up secretions. Oral care completed, large amount of dry thick secretions removed from back of throat. continues to have constant hiccups
--- NOTE | 2021-11-18 22:00 | NUR ---
Spouse called, update given. States patient has not had alchol for over 10 years. States he is unable to walk or go anywhere on his own. States he has been "out of his mind" at home for "awhile". having hallucinations and will be nice one minute and start being mean the next. She will take him to the store with her due to she is not comfortable leaving him at home alone. He will yell out and "act crazy" at the store. She expresses concerns of what to do with him because she can not take care of him any more at home.
--- NOTE | 2021-11-18 23:20 | NUR ---
RESP RATE INCREASED, AUDIBLE RATTLES HEARD. SUCTIONED LARGE AMOUNT OF SECRETIONS FROM BACK OF THROAT. LUNG SOUNDS INCREASED COARSENESS AND RHONCI. O2 SATS 89-90% ON 2L, OXYGEN INCREASED TO 5L NC. SATS RUNNING 90-92% ON 5L. DR ZHOU NOTIFIED. ORDER RECV'D FOR LASIX AND TO STOP IV FLUIDS. HAS BEEN INCONT, EXTERNAL CONDOM CATH PLACED
--- NOTE | 2021-11-19 00:52 | NUR ---
Resp effort improved, lungs clear but diminished. no distress noted at this time. Sats now 94-95% on 5L NC
[2021-11-19 03:54] LABS: BASOPHILS ABSOLUTE AUTO 0.02 K/mm3 (0.00-0.23); BASOPHILS PERCENT AUTO 0 % (0-2); EOSINOPHILS ABSOLUTE AUTO 0.15 K/mm3 (0.00-0.68); EOSINOPHILS PERCENT AUTO 2 % (0-6); Hemoglobin 12.6 g/dL (13.5-17.5); IMMATURE GRAN ABSOLUTE AUTO 0.04 K/mm3 (0.00-0.10); IMMATURE GRAN PERCENT AUTO 1 % (0-1); LYMPHOCYTES ABSOLUTE AUTO 1.24 K/mm3 (0.84-5.20); LYMPHOCYTES PERCENT AUTO 15 % (21-46); MONOCYTES ABSOLUTE AUTO 0.45 K/mm3 (0.16-1.47); MONOCYTES PERCENT AUTO 5 % (4-13); Mean Corpuscular HGB 31.3 pg (26.0-34.0); Mean Corpuscular HGB Conc 33.2 g/dL (31.5-36.5); Mean Corpuscular Volume 95 fL (80-100); Mean Platelet Volume 12.1 fL (9.1-12.4); NEUTROPHILS ABSOLUTE AUTO 6.41 K/mm3 (1.96-9.15); NEUTROPHILS PERCENT AUTO 77 % (41-73); Platelet Count 129 K/mm3 (150-400); RDW Standard Deviation 44.6 fL (35.1-46.3); Red Blood Cell Count 4.02 M/mm3 (4.30-5.90); White Blood Cell Count 8.31 K/mm3 (4.00-11.30)
[2021-11-19 04:09] LABS: Albumin, Blood 1.9 g/dL (3.4-5.0); Anion Gap 11 mmol/L (6-16); Blood Urea Nitrogen 29 mg/dL (8-24); Bun/Creatinine Ratio 25.7 (12.0-20.0); CO2, Blood 20 mmol/L (21-32); Calcium, Blood 8.8 mg/dL (8.5-10.1); Chloride, Blood 118 mmol/L (98-108); Creatinine, Blood 1.13 mg/dL (0.60-1.20); Glomerular Filtration Rate >60 (60-); Glucose, Blood 325 mg/dL (70-99); Phosphorus, Blood 2.8 mg/dL (2.5-4.9); Potassium, Blood 3.7 mmol/L (3.5-5.5); Sodium, Blood 149 mmol/L (136-145)
--- NOTE | 2021-11-19 05:53 | NUR ---
Continues to be restless at times, increasing restlessness when needs to urinate. Does well with coaching by nurse to urinate into condom cath. Cough continues to be very weak and unable to cough up secretions. Suctioned back of throat with large amount of return. O2 remains at 5L NC, unable to wean down. Attempts made with decrease in sats Still confused this am, but hallcination improved. Following directions this am but takes encouragement.
--- NOTE | 2021-11-19 09:35 | NUR ---
DR PLASCENCIA ROUNDED ON PAITENT. REPORTED K+ OF 3.7 AND NO MAG LAB DRAWN, NO AMMONIA OR LIVER ENZYMES DONE ON PATIENT FOR THIS ADMIT, AND REPORTED PATIENTS STATING HIS CONFUSION HAS INCREASED AND IS UNALE TO CARE FOR HIM AT HOME. XEROX MACHINE MECHANIC CONSULT IN WILL FOLLOW UP WITH THEM, STARTED IVF, NPO STATUS, POSSIBLE HEAD CT TODAY
[2021-11-19 12:16] LABS: Base Excess Venous -3.6 mmol/L; Bicarbonate Venous 21.8 mmol/L (24.0-30.0)
[2021-11-19 12:16] LABS: Albumin, Blood 2.1 g/dL (3.4-5.0); Albumin/Globulin Ratio 0.6 (0.8-1.8); Bilirubin, Direct 0.1 mg/dL (0.0-0.3); Bilirubin, Indirect 0.3 mg/dL (0.1-0.7); Bilirubin, Total 0.4 mg/dL (0.1-1.0); Globulin, Blood 3.7 g/dL (2.2-4.0); Total Protein, Blood 5.8 g/dL (6.4-8.2)
--- NOTE | 2021-11-19 12:43 | NUR ---
HEADT CT DONE, BACK TO ROOM AT 1752, UPDATED PIO ON THE PHONE, PATIENT FAILED SWALLOW EVAL, ST ORDERED, BED ALARM ON, HALD OF PATIENTS SPEECH IS UNDERSTANDABLE PRESENTLY
--- NOTE | 2021-11-19 14:00 | NUR ---
ST ISAIAH DONE PATIENT 1:1 FEEDER, PUREE, NO STRAWS, LIQUIDS WITH SPOON ONLY
--- NOTE | 2021-11-19 18:14 | NUR ---
PATIENT MORE ALERT, SPEECH HALF UNDERSTANDABLE, MUMBLED, VISUAL HALLUCINATIONS, REGUALRLY ORIENTED TO PLACE AND CONDITION, AFIBRILE. LS DIMINISHED BASES, RHONCHI CLEARED WITH WEAK COUGH, 5L NC, SATS 95-99%. SBP 90-120, CONSTANTLY REPOSITIONING AND IMPULSIVE IN BED, BED ALARM ON. CONDOM CATH REPLACED X1 DUE TO PATIENT TAKING THE OTHER OFF, ADVANCED DIET TO PUREE, 1:1 FEEDER, - HEADT CT, AMMONIA LEVEL AND LIVER ENZYMES WNL. PATIENT HAS A HISTORY OF DEMENTIA. 1/2 NS AT 50 ML/HR LEFT FA. WILL RELAY TO PM RN, SE
--- NOTE | 2021-11-19 20:00 | NUR ---
Assumed care after report recv'd assessment completed, much more alert this pm, able to answer some orientation questions and follow directions. Very impulsive, trying to climb out of bed. Redirects but continues to attempt with nurse at bedside. states wants something to eat, assisted with snack
--- NOTE | 2021-11-20 00:30 | NUR ---
Very confused, continous attempts to climb out of bed, unable to redirect. Throwing legs over side rails. Yelling need to go home. Nurse unable to calm or get to stop attempting to climb out of bed. Dr Shaffer called orders recv'd. bladder scan done 550 residual in bladder. herr placed. catracho vest placed for safety to prevent fall.
[2021-11-20 01:15] LABS: Source, Urine Catheter
[2021-11-20 01:28] LABS: Bilirubin, Urine Neg (Neg); Blood, Urine 1+ (Neg); Glucose Qualitative, Urine 4+ (Neg); Ketones, Urine 3+ (Neg); Leukocyte Esterase, Urine Neg (Neg); Nitrite, Urine Neg (Neg); Protein, Urine 1+ (Neg); Specific Gravity, Urine 1.015 (1.003-1.022); Urobilinogen, Urine NORM (Normal)
[2021-11-20 01:33] LABS: Appearance, Urine Clear (Clear); Color, Urine Yellow (P-Yellow)
[2021-11-20 01:35] LABS: Bacteria Not Seen /hpf; Red Blood Cells, Urine 0-2 /hpf (0-2); Squamous Epithelial Cells Not Seen /hpf (Few); White Blood Cells, Urine Rare /hpf (0-5)
--- NOTE | 2021-11-20 02:34 | NUR ---
CONTINUSLY ATTEMPTING TO CLIMB OUT OF BED, THRASHING AF5UQUP IN BED, YELLING OUT. NURSE UNABLE TO CALM OR REDIRECT. HALDOL CALMED FOR A SHORT TIME THEN BECAME AGITATED AGAIN. aTIVAN GIVEN WITH NO CHANGE. IS ORIENTED TO PLACE AND SELF.
[2021-11-20 03:41] LABS: BASOPHILS ABSOLUTE AUTO 0.01 K/mm3 (0.00-0.23); BASOPHILS PERCENT AUTO 0 % (0-2); EOSINOPHILS ABSOLUTE AUTO 0.16 K/mm3 (0.00-0.68); EOSINOPHILS PERCENT AUTO 3 % (0-6); Hematocrit 35.6 % (37.0-53.0); Hemoglobin 11.9 g/dL (13.5-17.5); IMMATURE GRAN ABSOLUTE AUTO 0.02 K/mm3 (0.00-0.10); IMMATURE GRAN PERCENT AUTO 0 % (0-1); LYMPHOCYTES ABSOLUTE AUTO 1.05 K/mm3 (0.84-5.20); LYMPHOCYTES PERCENT AUTO 17 % (21-46); MONOCYTES ABSOLUTE AUTO 0.52 K/mm3 (0.16-1.47); MONOCYTES PERCENT AUTO 8 % (4-13); Mean Corpuscular HGB 30.9 pg (26.0-34.0); Mean Corpuscular HGB Conc 33.4 g/dL (31.5-36.5); Mean Corpuscular Volume 93 fL (80-100); Mean Platelet Volume 11.8 fL (9.1-12.4); NEUTROPHILS ABSOLUTE AUTO 4.62 K/mm3 (1.96-9.15); NEUTROPHILS PERCENT AUTO 72 % (41-73); Platelet Count 127 K/mm3 (150-400); RDW Coefficient Variation 12.7 % (11.7-14.2); RDW Standard Deviation 43.3 fL (35.1-46.3); Red Blood Cell Count 3.85 M/mm3 (4.30-5.90); White Blood Cell Count 6.38 K/mm3 (4.00-11.30)
[2021-11-20 03:54] LABS: Albumin, Blood 1.8 g/dL (3.4-5.0); Anion Gap 5 mmol/L (6-16); Blood Urea Nitrogen 24 mg/dL (8-24); Bun/Creatinine Ratio 24.2 (12.0-20.0); CO2, Blood 26 mmol/L (21-32); Calcium, Blood 8.9 mg/dL (8.5-10.1); Chloride, Blood 120 mmol/L (98-108); Creatinine, Blood 0.99 mg/dL (0.60-1.20); Glomerular Filtration Rate >60 (60-); Glucose, Blood 351 mg/dL (70-99); Phosphorus, Blood 2.3 mg/dL (2.5-4.9); Potassium, Blood 3.3 mmol/L (3.5-5.5); Sodium, Blood 151 mmol/L (136-145)
--- NOTE | 2021-11-20 06:24 | NUR ---
Continues to be very confused, attempting to climb out of bed. Rested for the past 30 mins then woke thrashing around in bed attempting to climb out. catracho vest in place for safety to prevent fall. Unable to redirect, will not leave pulse ox plugged into cable and will not leave oxygen on. Spot check on sats staying in mid to upper 90's.
--- NOTE | 2021-11-20 07:47 | NUR ---
Provider Call Spoke to Dr. Cooper in regards to patients sodium and potassium. New orders recieved, see emar. 11/18 NS rate increased to 100 ml/hr.
--- NOTE | 2021-11-20 09:57 | NUR ---
Care Assumed 0700 A/O to location and following commands occasionally. Irritable and pulling at line/attempting to get out of bed. Posy in place and bed alarm on. ON RA, SPO2 > 90%. Pt changed to PCU status per Dr. Cooper at this morning. Dr. Cooper at bedside and states patient to be changed to medical floor status tomorrow. VSS. Hypertensive when very agitated but falls asleep frequently. On 11/18 NS @ 100 ml/hr. Will continue to monitor.
--- NOTE | 2021-11-20 16:56 | NUR ---
Provider visit- Dr. Cooper - Med floor status at bedside, new orders recieved, see emar. Pt changed to medical floor. Provider updated on patient being agitated and attempting to get out of bed frequently.
--- NOTE | 2021-11-20 18:02 | NUR ---
Shift Summary On RA, SPO2 > 90%. LS clear/dim bases. Pt able to answer simple questions, states being at [facility]. Remains on vest, easily agitated and states "I want to go home." Attempting to get out of bed/pulling on lines/tubes or sleeping. 1/2 NS @ 50 ml/hr per provider. Medel in place with 900 ml of clear/yellow urine. BT active. Will report to oncoming shift.
[2021-11-21 03:36] LABS: Alanine Aminotransfer (ALT/SGP 27 U/L (12-78); Albumin, Blood 2.2 g/dL (3.4-5.0); Albumin/Globulin Ratio 0.5 (0.8-1.8); Alk Phos 145 U/L (50-136); Anion Gap 8 mmol/L (6-16); Aspartate Aminotrans (AST/SGOT 19 U/L (12-37); Bilirubin, Total 0.5 mg/dL (0.1-1.0); Blood Urea Nitrogen 19 mg/dL (8-24); Bun/Creatinine Ratio 19.7 (12.0-20.0); CO2, Blood 23 mmol/L (21-32); Calcium, Blood 9.1 mg/dL (8.5-10.1); Chloride, Blood 114 mmol/L (98-108); Creatinine, Blood 0.97 mg/dL (0.60-1.20); Globulin, Blood 4.7 g/dL (2.2-4.0); Glomerular Filtration Rate >60 (60-); Glucose, Blood 490 mg/dL (70-99); Magnesium, Blood 2.2 mg/dL (1.6-2.4); Phosphorus, Blood 3.5 mg/dL (2.5-4.9); Potassium, Blood 3.8 mmol/L (3.5-5.5); Sodium, Blood 145 mmol/L (136-145); Total Protein, Blood 6.9 g/dL (6.4-8.2)
--- NOTE | 2021-11-21 06:28 | NUR ---
confused through out night. thrashing around in bed, attempting to climb out of bed and pulling at lines, unable to redirect. medicated with prn meds, which calmed slightly but did not stop attempts to climb out of bed. blood sugar [address] Shaffer called order recieved. Elevated temp, treated with tylenol. Calmed and rested for about 2 hours then woke and started attempts to climb out of bed
--- NOTE | 2021-11-21 08:04 | NUR ---
CARE ASSUMED OF PT AT 0700. PT AWAKE, DROWSY, VERY RESTLESS, AND ACTIVELY HALLUCINATING. MOST OF PT'S SPEECH IS INCOMPREHENDABLE. PT HAS POOR GAG AND WEAK COUGH THIS AM. WILL KEEP NPO UNTIL MORE AWAKE AND ALERT WITH CLEARED SPEECH. BS 354, 15UNITS REG INSULIN SQ GIVEN. ZYPREXA IM GIVEN FOR SEVERE RESTLESSNESS/CONFUSION. BLOOD CX'S DRAWN. PT UNABLE TO FOLLOW COMMANDS. DR ZHOU IN THIS AM, FULL REPORT GIVEN. WILL CHECK BS IN 2HRS INSULIN GIVEN FOR HIGH BS AND PT IS NPO. THIS DISCUSSED W DR ZHOU.
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
--- NOTE | 2021-11-21 14:03 | NUR ---
PT BECAME VERY AGITATED IN CHAIR, YELLING PROFANITIES, AND ACTIVELY TRYING TO GET OUT OF CHAIR, KICKING LEGS. ATIVAN 1MG IV GIVEN.
--- NOTE | 2021-11-21 15:36 | NUR ---
PT SEVERELY AGITATED, THRASHING IN BED, PULLING AT LINES, AND IV. WRIST RESTRAINTS PLACED. ZYPREXA IM GIVEN.
--- NOTE | 2021-11-21 17:58 | NUR ---
PT SEVERELY CONFUSED, MUMBLING, PULLING AGAINST RESTRAINTS, THRASHING IN BED, PULLING ON HIS CATHETER, MUMBLES PROFANITIES. ATIVAN 1MG GIVEN FOR THIS.
--- NOTE | 2021-11-21 21:40 | NUR ---
SHIFT ASSESSMENT ASSUMED CARE OF PT @ 1900. PT ALERT, IN BED THRASHING AROUND. WILL STATE NAME INCONSISTENTLY. CONTINOUSLY PULLING AT LINES AND CATHETER, ATTEMPTING TO GET OUT OF BED. RESTRAINTS IN PLACE TO PROTECT LINES AND CATHETER. MEDICATING PER MAR FOR ANXIETY. 1/2NS @ 50ML/HR IN PERIPHERAL IV. WILL CONTINUE TO MONITOR CLOSELY.
--- NOTE | 2021-11-22 05:54 | NUR ---
SHIFT SUMMARY NO ACUTE CHANGES IN PT CONDITION DURING THE NIGHT. REMAINS CONFUSED. PT TOSSING IN BED FOR MOST OF THE NIGHT. DID NOT APPEAR TO SLEEP MUCH. PT GIVEN A COUPLE SMALL BITES OF APPLESAUCE. REMAINS IN ASIA AND RESTRAINTS DUE TO PULLING AT IV, FUNEZ CATHETER, AND HIGH FALL RISK.
--- NOTE | 2021-11-22 08:55 | NUR ---
CARE OF PT ASSUMED AT 0700. PT AWAKE IN BED ATTEMPTING TO CLIMB OUT OF BED BY SITTING UP AND THROWING LEGS OVER SIDE. PT IN ASIA VEST AND BILAT WRIST RESTRAINTS. PT ABLE TO STATE NAME, AND STATE THAT HE IS AT [facility] IN [place]. SPEECH IS SLIGHTLY GARBLED BUT MUCH IMPROVED FROM YESTERDAY. PT ABLE TO FOLLOW SOME COMMANDS, FALLS ASLEEP FREQUENTLY DURING QUESTIONS AND ASSESSMENT. WRIST RESTRAINTS REMOVED AT 0800. PT 2 PERSON MAX SBA TO CHAIR. PT ABLE TO EAT MORE SAFELY TODAY. SPEECH TX AT BEDSIDE RE-EVALUATING PT. VSS.
--- NOTE | 2021-11-22 12:56 | NUR ---
PT HAS POOR APPETITE AND FORGETS TO SWALLOW AT TIMES. ABLE TO STATE NAME AND MAKE SOME NEEDS KNOWN; SUCH I HAVE TO POOP, BUT REMAINS CONFUSED OVERALL. VERY IMPULSIVE, AND IRRITABLE. SPEECH REMAINS GARBLED.
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
--- NOTE | 2021-11-22 18:00 | NUR ---
PT REMAINS CONFUSED. AT TIMES ABLE TO REDIRECT PT, AT OTHER TIMES PT AGITATED AND PULLING ON RESTRAINTS AND LINES. ABLE TO STATE NAME AND PLACE AT TIMES, AND AT OTHER TIMES UNABLE TO DO THIS. PT APPEARS AT TIMES THAT HE IS HALLUCINATING. PT SLEEPS THEN WAKES UP AGIATED AND THEN SWIFTLY FALLS BACK TO SLEEP AGAIN.
--- NOTE | 2021-11-23 01:52 | NUR ---
PATIENT EXTREMELY RESTLESS ALL NIGHT SO FAR. CONSTANTLY PULLING ON RESTRAINTS AND GRABBING AT FUNEZ CATHETER DESPITE CONSTANT REMOVAL AND REPLACEMENT OF WRIST RESTRAINTS AND ASIA. HALDOL EARLIER IN THE EVENING DID SEEM TO SLOW AND RELAX HIM FOR 1-2 HOURS, BUT NO REACTION AT ALL FROM THE ATIVAN. THIS RN IS SITTING OUTSIDE THE ROOM TO MONITOR CLOSELY EVEN THOUGH CAMERA IS ON FOR SAFETY. WILL CONTINUE TO MONITOR VERY CLOSELY
--- NOTE | 2021-11-23 02:54 | NUR ---
PATIENT AWAKE ALL NIGHT. (SEE NURSES NOTES). HE WAS UNFORTUNATELY NOT REDIRECTABLE AT ALL. PULLING AT RESTRAINTS, FUNEZ AND IV EACH TIME WE WOULD LEAVE THE ROOM DESPITE COMFORT MEASURES, REMOVING AND ADJUSTING RESTRAINTS AND ALL MEDICATIONS AVAILABLE ON EMAR TO TRY TO CALM THE PATIENT. NO COMPLAINTS OR INDICATIONS OR PAIN OR DISCOMFORT. NOT VERBALLY ABUSIVE OR LOUD. JUST PROFOUNDLY CONFUSED.
[2021-11-23 06:37] LABS: Anion Gap 8 mmol/L (6-16); Blood Urea Nitrogen 13 mg/dL (8-24); Bun/Creatinine Ratio 14.6 (12.0-20.0); CO2, Blood 21 mmol/L (21-32); Calcium, Blood 8.3 mg/dL (8.5-10.1); Chloride, Blood 118 mmol/L (98-108); Creatinine, Blood 0.89 mg/dL (0.60-1.20); Glomerular Filtration Rate >60 (60-); Glucose, Blood 94 mg/dL (70-99); Potassium, Blood 3.4 mmol/L (3.5-5.5); Sodium, Blood 147 mmol/L (136-145)
--- NOTE | 2021-11-23 17:01 | NUR ---
SHIFT SUMMARY THE PATIENT IS ALERT AND ORIENTED X1, VERY CONFUSED, IRRITABLE AND AGITATED. THE PATIENT HAS BEEN ABLE TO RELEASE SELF FROM ASIA VEST THIS SHIFT. PATIENT BECAME COMBATIVE AND WAS CURSING AT STAFF/PULLING AT LINES. SOFT ANKLE WRIST RESTRAINTS APPLIED FOR PATIENT AND STAFF SAFETY. TELE WAS DC'D THIS SHIFT. NO ACUTE CHANGES. STILL ON PUREE DIET. NECTAR THICK LIQUIDS. MEDS CRUSHED IN APPLESAUCE. 1/2 NS RUNNING AT 50MLS/HR. THIS NURSE WILL CONTINUE TO CARE FOR THE PATIENT UNTIL SHIFT REPORT IS GIVEN TO ONCOMING NURSE.
--- NOTE | 2021-11-23 22:45 | NUR ---
PATIENT PULLED OUT OF SOFT WRIST RESTRAINTS. TRYING TO PULL ASIA VEST OFF. RESTRAINTS BACK ON. WCTM.
--- NOTE | 2021-11-24 03:42 | NUR ---
SHIFT SUMMARY PATIENT AXOX 2-3 AND BEDREST. AGITATED TRYING TO PULL ASIA OFF AND PULLED OUT OFF SOFT WRIST RESTRAINTS X 2. NOT REDIRECTABLE AT THIS TIME. IV HALDOL 3 MG GIVEN PER EMAR FOR AGIATION. PIV REMAINS INTACT. 1/2 NS INFUSING AT 50 mL/HR. TAKES MEDICATION CRUSHED IN APPLESAUCE. CBG 256. FUNEZ PATENT AND DRAINING TO GRAVITY. REPORTED ARM PAIN X ONE AND TYLENOL 650 MG GIVEN PRN. VSS/AFEBRILE. DENIES SOB AND N/V. ON CAMERA. CALL LIGHT IN REACH. BED IN LOWEST POSITION AND ALARM ACTIVATED. WILL CONTINUE TO MONITOR UNTIL DAY SHIFT NURSE ASSUMES CARE.
[2021-11-24 05:37] LABS: Anion Gap 7 mmol/L (6-16); Blood Urea Nitrogen 10 mg/dL (8-24); Bun/Creatinine Ratio 10.5 (12.0-20.0); CO2, Blood 23 mmol/L (21-32); Calcium, Blood 8.4 mg/dL (8.5-10.1); Chloride, Blood 115 mmol/L (98-108); Creatinine, Blood 0.95 mg/dL (0.60-1.20); Glomerular Filtration Rate >60 (60-); Glucose, Blood 175 mg/dL (70-99); Potassium, Blood 3.7 mmol/L (3.5-5.5); Sodium, Blood 145 mmol/L (136-145)
--- NOTE | 2021-11-24 16:56 | NUR ---
SHIFT SUMMARY PT HAS BEEN RESTING COMFORTABLE IN BED. AROUND 12 PM HE ASKED IF HE COULD BE LET OUT OF RESTRAINTS SO HE COULD SLEEP ON HIS SIDE AND HE PROMISED TO STAY IN BED. HE HAS BEEN COMPLAINT WITH STAYING IN BED SO FAR. PT HAS NOT COMPLAINED OF PAIN SO FAR THIS SHIFT, BUT HAD SOME TROUBLE WITH HEARTBURN EARLIER IN THE DAY. HE IS ANXIOUS TO HAVE REGULAR IQUIDS BUT A BEDSIDE REEVALUATION SHOWS HIM STILL HAVING TROUBLE WITH THIN LIQUIDS. WILL CONTINUE TO MONITOR.
--- NOTE | 2021-11-25 03:24 | NUR ---
SHIFT SUMMARY PATIENT HAD NO ACUTE CHANGES OBSERVED. AXOX 2 AND BEDREST. ASIA VEST PER ORDERS. PATIENT HAD A FEW CAMERA EVENTS TRYING TO GET ASIA OFF. LESS AGITATION THIS SHIFT. CBG 304. TAKES MEDICATION CRUSHED IN APPLESAUCE. FUNEZ PATENT AND DRAINING TO GRAVITY. VSS/AFEBRILE. DENIES PAIN, SOB, AND N/V. CALL LIGHT IN REACH. BED IN LOWEST POSITION. WILL CONTINUE TO MONITOR UNTIL DAY SHIFT NURSE ASSUMES CARE.
--- NOTE | 2021-11-25 16:14 | NUR ---
SHIFT SUMMARY PT ADMITTED FOR AMS SECONDARY TO SIGNIFICANT HYPERGLYCEMIA AND ACUTE HYPONATREMIA. PNEUMONIA TO THE LEFT LUNG. PLAN IS FOR PLACEMENT. PT IS A&O X 2-3, REQUIRING RE-ORIENTATION TO HIS OWN LIMITATIONS. USING BED ALARM AND CHAIR ALARM. REMAINED IN ASIA VEST OVERNIGHT, WHICH WAS REMOVED AT 0800 THIS MORNING. PT HAS SINCE REMAINED SAFE AND OUT OF RESTRAINTS. BLOOD SUGARS WERE 221 FOR BREAKFAST, 291 FOR LUNCH. LANTUS DOSE INCREASED TO 20UNITS BID. LUNG SOUNDS CLEAR BUT DIMINISHED. FUNEZ IN PLACE DRAINING YELLOW URINE. SPENT MOST OF THE SHIFT IN BED, RESTING. GOOD APPETITE, ASKING FOR MORE SERVINGS OF FOOD. ADA PUREED DIET, NECTAR THICK FOODS. NO ACUTE CHANGES.
--- NOTE | 2021-11-26 03:15 | NUR ---
SHIFT SUMMARY PATIENT HAD NO ACUTE CHANGES OBSERVED. AXOX 2-3 AND BEDREST. TAKES MEDICATION CRUSHED IN APPLESAUCE. OUT OF RESTRAINTS, ON CAMERA. MINIMAL OOB ATTEMPTS. FUNEZ PATENT AND DRAINING TO GRAVITY. REPORTED ACID REFLUX AND TUMS 1,000 MG GIVEN PER EMAR. DENIES PAIN, SOB, AND N/V. CBG 363. SEMGLEE NEW ORDER OF 20 UNITS GIVEN UP FROM 15 UNITS LAST NOC SHIFT. PIV REMAINS INTACT. CALL LIGHT IN REACH. BED IN LOWEST POSITION. WILL CONTINUE TO MONITOR UNTIL DAY SHIFT NURSE ASSUMES CARE.
[2021-11-26 06:22] LABS: Anion Gap 6 mmol/L (6-16); Blood Urea Nitrogen 15 mg/dL (8-24); Bun/Creatinine Ratio 18.4 (12.0-20.0); CO2, Blood 26 mmol/L (21-32); Calcium, Blood 8.7 mg/dL (8.5-10.1); Chloride, Blood 109 mmol/L (98-108); Creatinine, Blood 0.82 mg/dL (0.60-1.20); Glomerular Filtration Rate >60 (60-); Glucose, Blood 278 mg/dL (70-99); Potassium, Blood 4.2 mmol/L (3.5-5.5); Sodium, Blood 141 mmol/L (136-145)
--- NOTE | 2021-11-26 17:45 | NUR ---
DAY SHIFT SUMMARY 66 YR OLD MALE. PLEASANT, COOPERATIVE WITH CARE, CALLS APPROPRIATELY. A/O X3 SOME CONFUSION. FUNEZ REMOVED ON THIS SHIFT AFTER BLADDER TRAINING PER DR ORDER. NO C/O OF PAIN THIS SHIFT. CBG HIGH THROUGHOUT SHIFT WITH INSULIN COVERAGE PER EMAR/SLIDING SCALE. DIET UPGRADED TO SOFT/THIN LIQUIDS TO EAT SUPERVISED PER SPEECH THERAPY. PT ON RA, WORKED WITH PHYSICAL THERAPY TODAY. CALL LIGHT WITHIN REACH OF PT.
--- NOTE | 2021-11-27 05:41 | NUR ---
SHIFT SUMMARY: PT IS A/OX3-4. HS BLOOD SUGARS WERE HIGH AT 303. PT HAD A FEW EPISODES OF N/V, AND ZOFRAN WAS HELPFUL. HE IS TAKING MEDS CRUSHED W/ APPLESAUCE. THERE IS A NEW IV IN HIS DIANA INSERTED 11/27 NOC. HE IS STILL UNSTEADY ON HIS FEET; A 1PA W/ FWW TO BR IS APPROPRIATE. CALL LIGHT IS WITHIN REACH AND WE'LL CONTINUE TO MONITOR.
--- NOTE | 2021-11-27 17:33 | NUR ---
DAY SHIFT SUMMARY COOPERATIVE 66 YR OLD MALE. CBG HIGH THROUGHOUT DAY, INSULIN COVERAGE PER EMAR/SLIDING SCALE. PT EXPERIENCED FALL IN ROOM WHEN UP ATTEMPTING TO GET A SHIRT. A SOUND WAS HEARD AND THE NURSE WALKED INTO ROOM TO FIND PT DOWN IN FLOOR AND WALKER TURNED ON ITS SIDE. PT ABLE TO GET HIMSELF UP FROM FLOOR AND INTO BED. VITALS WNL, PT STATED NO PAIN, A SMALL SKIN TEAR TO FORE ARM (CLEANED AND DRESSED), MD MADE AWARE. C/O OF HEARTBURN CONTINUIOUS THROUGHOUT DAY, MD MADE AWARE AND EMAR UPDATED. PT MEDICATED PER EMAR AND MD ORDERS. CALL LIGHT WITHIN REACH OF PT. BED/CHAIR ALARM ON.
[2021-11-27] MEDS ORDERED: HYDCHL25 PO (21:12)
[2021-11-27] MEDS ORDERED: BUPR150ER PO (21:17)
[2021-11-27] MEDS ORDERED: NOVOLOG FL100 UNIT/3 SC (21:22)
[2021-11-27] MEDS ORDERED: TOUJEO MAX300 UNIT/2 SC (21:23)
--- NOTE | 2021-11-28 03:31 | NUR ---
SUMMARY: PT A/OX3 AND IS PLEASANT AND COOPERATIVE W/CARE. HE CONT'S WEAK AND UNSTEADY W/BED ALARM ON FOR FALL ON DAY SHIFT. MEPILEX DX REMAINS C/D/I TO FA SKIN TEAR. INSULIN RECIEVED AT HS FOR CONTINUED HYPERGLYCEMIA, CBG 330. HE REFUSED NEEDING TUMS AND REPORTED HEARTBURN WAS "MUCH BETTER THAN PREVIOUS". HE DENIED PAIN AND ALL OTHER COMPLAINTS. NO ACUTE CHANGES, VSS/AFEBRILE AND PT SLEPT MAJORITY OF NOCTE. PLAN FOR D/C HOME WITH TODAY. WCTM AND REPORT TO DAY RN.
--- NOTE | 2021-11-28 11:24 | NUR ---
CALLED DR LYNN PT BG WAS 399. PT WILL RECIEVE 5 UNITS OF REGULAR INSULIN ON LOW SS FOR THIS BG. DR RIGO AND ORDER THE PT BE RESTARTED ON HIS HOME GLIPIZIDE AT 5MG BID FIRST DOSE WITH LUNCH.
[2021-11-28] MEDS ORDERED: LISI5 PO (13:17)
[2021-11-28] MEDS ORDERED: ACET325 PO (13:18)
[2021-11-28] MEDS ORDERED: Calcium Carbon500 MG PO (13:19)
[2021-11-28] MEDS ORDERED: CARV3.125 PO (13:19)
[2021-11-28] MEDS ORDERED: OMEP20ER PO (13:20)
[2021-11-28] MEDS ORDERED: MELA3 PO (13:20)
[2021-11-28] MEDS ORDERED: QUET25 PO (13:20)
--- NOTE | 2021-11-28 13:41 | NUR ---
DISCHARGE NOTE- PT WAS PROVIDED WITH VERBAL AND WRITTEN DISCHARGE INSTRUCTIONS AND ACKNOWLEDGED UNDERSTANDING OF THEM. MEDS FAXED TO [facility] IN [place] PER PT REQUEST. CARE MANAGEMENT ASSISTED WITH HOME HEALTH, ORDERING A WALKER, AND SCHEDULING A RIDE FOR THE PT. WALKER DID NOT ARRIVE PRIOR TO PT DISCHARGE, CALLED CARE MANAGEMENT KHADAR CONNOLLY, SHE IS ARANGING FOR A HOME DELIVERY. PT ESCORTED OUT VIA WC BY SWITCHBOARD AND CONTROL ROOM OPERATOR PHIL, NO S&S OF DISTRESS NOTED AT THE TIME OF DOSCHARGE, IV DC'D PRIOR TO DISCHARGE.
--- NOTE | 2021-11-28 15:53 | NUR ---
Received referral from nurse rn progressive care unit (Rach Castro) on 11/28/2021. Patient is to discharge today- 11/28/2021 with orders for home health and elected [facility]. Met with patient to further discuss the above. Patient is agreeable to the above. Discussed homebound status definition with patient. Patient verbalized understanding. Discussed what home health is vs what it is not (in home caregivers/housekeeping). Patient verbalized understanding. Discussed the next steps in the process of an initial assessment to determine frequency of visits. Again patient verbalized understanding. Offered a chance for patient to ask questions regarding the above of which there were none. Gathered all supporting documentation for referral (face sheet, face to face, med list, H&P, and most recent PT assessment) and sent to [facility] for review. No further interventions required. Eleanor Wagner Referral Liaison
== END 2021-11-28 13:35 | disposition home health service (06) | DRG 871 ==
LOC: ER 17:56 → ICUE 21:21 → ICUW 21:21 → ICUE 21:51 → MEDS 11-22 17:31
PROVIDERS: Emergency Medicine; Family Medicine; Internal Medicine; ADMIT Internal Medicine
DX: A41.9 Sepsis, unspecified organism (principal); E11.00 Type 2 diabetes mellitus with hyperosmolarity without nonketotic hyperglycemic-hyperosmolar coma (NKHHC); G92.8 Other toxic encephalopathy; J18.9 Pneumonia, unspecified organism; J96.01 Acute respiratory failure with hypoxia; G93.6 Cerebral edema; J44.0 Chronic obstructive pulmonary disease with (acute) lower respiratory infection; N17.9 Acute kidney failure, unspecified; E87.4 Mixed disorder of acid-base balance; E87.0 Hyperosmolality and hypernatremia; F10.231 Alcohol dependence with withdrawal delirium; Z20.822 Contact with and (suspected) exposure to COVID-19; E11.42 Type 2 diabetes mellitus with diabetic polyneuropathy; F17.210 Nicotine dependence, cigarettes, uncomplicated; E88.09 Other disorders of plasma-protein metabolism, not elsewhere classified; E87.6 Hypokalemia; R45.1 Restlessness and agitation; D72.829 Elevated white blood cell count, unspecified; E83.39 Other disorders of phosphorus metabolism; F15.10 Other stimulant abuse, uncomplicated; I10 Essential (primary) hypertension; D69.6 Thrombocytopenia, unspecified; E86.0 Dehydration; Z88.0 Allergy status to penicillin; Z90.89 Acquired absence of other organs; Z98.890 Other specified postprocedural states; Z91.14 Patient's other noncompliance with medication regimen; Z79.84 Long term (current) use of oral hypoglycemic drugs; Z79.899 Other long term (current) drug therapy
CPT/HCPCS: 0241U; 36415; 36416; 51702; 70450; 71045; 80048; 80053; 80069; 80076; 81001; 82140; 82803; 82947; 83605; 83735; 83880; 84100; 84145; 84295; 84436; 84443; 84481; 84484; 85025; 87040; 87086; 92526; 92610; 93005; 93010; 93306; 96372; 96374; 97116; 97162; 97165; 97530; 99285-25; A9270; J0360; J0456; J0696; J1630; J1650; J1815; J1940; J2060; J2405; J7030; J7050; J7060

== ENCOUNTER 2021-12-18 13:48 | Inpatient (IN) | payer MEDICARE, OTHER ==
[~2021-12-18] VITALS: Ht 167.6 cm; Wt 67.4 kg
[~2021-12-18 13:48] MED LIST changes: +ACET325 PO; +BUPR150ER PO; +CARV3.125 PO; +Calcium Carbon500 MG PO; +MELA3 PO; +NOVOLOG FL100 UNIT/3 SC; +QUET25 PO; +TOUJEO MAX300 UNIT/2 SC
[2021-12-18 14:35] LABS: BASOPHILS ABSOLUTE AUTO 0.02 K/mm3 (0.00-0.23); BASOPHILS PERCENT AUTO 0 % (0-2); EOSINOPHILS PERCENT AUTO 0 % (0-6); Hematocrit 45.6 % (37.0-53.0); Hemoglobin 14.6 g/dL (13.5-17.5); IMMATURE GRAN ABSOLUTE AUTO 0.09 K/mm3 (0.00-0.10); IMMATURE GRAN PERCENT AUTO 1 % (0-1); LYMPHOCYTES ABSOLUTE AUTO 0.67 K/mm3 (0.84-5.20); LYMPHOCYTES PERCENT AUTO 6 % (21-46); MONOCYTES ABSOLUTE AUTO 0.34 K/mm3 (0.16-1.47); MONOCYTES PERCENT AUTO 3 % (4-13); Mean Corpuscular HGB 29.7 pg (26.0-34.0); Mean Corpuscular Volume 93 fL (80-100); Mean Platelet Volume 12.9 fL (9.1-12.4); NEUTROPHILS ABSOLUTE AUTO 10.36 K/mm3 (1.96-9.15); NEUTROPHILS PERCENT AUTO 90 % (41-73); Platelet Count 166 K/mm3 (150-400); RDW Coefficient Variation 13.2 % (11.7-14.2); RDW Standard Deviation 45.2 fL (35.1-46.3); Red Blood Cell Count 4.91 M/mm3 (4.30-5.90); White Blood Cell Count 11.48 K/mm3 (4.00-11.30)
[2021-12-18] MEDS ORDERED: BUPR150ER PO (14:41)
[2021-12-18] MEDS ORDERED: GLIP5 PO (14:42)
[2021-12-18 14:50] LABS: Source, Urine Foley catheter
[2021-12-18 14:57] LABS: Bilirubin, Urine Neg (Neg); Blood, Urine 1+ (Neg); Glucose Qualitative, Urine 4+ (Neg); Ketones, Urine Neg (Neg); Leukocyte Esterase, Urine Neg (Neg); Nitrite, Urine Neg (Neg); Protein, Urine 2+ (Neg); Urobilinogen, Urine NORM (Normal)
[2021-12-18 15:04] LABS: Appearance, Urine Hazy (Clear); Color, Urine Pale Yellow (P-Yellow)
[2021-12-18 15:06] LABS: White Blood Cells, Urine 0-2 /hpf (0-5)
[2021-12-18 15:07] LABS: Amorphous Light (0-Heavy); Bacteria Rare /hpf; Mucus Light (0-Heavy); Squamous Epithelial Cells Rare /hpf (Few)
[2021-12-18 15:08] LABS: U Amphetamine Screen DETECTED
[2021-12-18 15:09] LABS: U Barbituate Screen Not Detected; U Benzodiazapine Screen Not Detected; U Buprenorphine Screen Not Detected; U Cannabinoids Screen Not Detected; U Cocaine Screen Not Detected; U Methadone Screen Not Detected; U Methamphetamine Screen DETECTED; U Opiates Screen Not Detected; U Oxycodone Screen Not Detected; U Phencyclidine Screen Not Detected; U Propoxyphene Screen Not Detected
[2021-12-18 15:50] LABS: Ethanol (Alcohol), Blood, Med <3 mg/dL; Thyroid Stimulating Hormone 0.537 uIU/mL (0.360-4.800)
[2021-12-18 15:54] LABS: Alanine Aminotransfer (ALT/SGP 26 U/L (12-78); Albumin, Blood 2.6 g/dL (3.4-5.0); Albumin/Globulin Ratio 0.5 (0.8-1.8); Alk Phos 150 U/L (50-136); Anion Gap 20 mmol/L (6-16); Aspartate Aminotrans (AST/SGOT 31 U/L (12-37); Bilirubin, Total 0.5 mg/dL (0.1-1.0); Blood Urea Nitrogen 112 mg/dL (8-24); Bun/Creatinine Ratio 33.5 (12.0-20.0); CO2, Blood 17 mmol/L (21-32); Calcium, Blood 8.4 mg/dL (8.5-10.1); Chloride, Blood 110 mmol/L (98-108); Creatinine, Blood 3.34 mg/dL (0.60-1.20); Globulin, Blood 4.8 g/dL (2.2-4.0); Glomerular Filtration Rate 19 (60-); Glucose, Blood 1188 mg/dL (70-99); Potassium, Blood 3.5 mmol/L (3.5-5.5); Sodium, Blood 147 mmol/L (136-145); Total Protein, Blood 7.4 g/dL (6.4-8.2)
[2021-12-18 16:25] LABS: Creatine Kinase MB 6.1 ng/mL (0.0-3.6)
[2021-12-18 19:03] LABS: Glucose, Blood 944 mg/dL (70-99)
--- NOTE | 2021-12-18 19:30 | NUR ---
ASSUMED CARE. EYES OPEN, NYSTAGMUS. UNABLE TO FOCUS. NON-VERBAL, CONFUSED. DOES NOT FOLLOW DIRECTION. MOVING ARMS ALL OVER WITH THE CORDS. HAS GOTTEN TANGLED IN THE CORDS SEVERAL TIMES. UNKEPT, FILTHY. VERY DRY ORAL CAVITY. HE IS EMACIATED, RIB CAGE SHOWING, ABDOMIN SUNKEN IN. BRUISING NOTED ON KNUCKLES AND HANDS, BUE. SCABS ON LLE. BILATERAL TOES ARE BLUE GREATER ON THE LEFT FOOT THEN THE RIGHT. BOTTOM RED, BLANCHABLE. PULSE FAINT AND FOOT COLD ON THE LEFT. RESP EVEN AND UNLABORED. BT HYPOACTIVE. FUNEZ PATENT AND DRAINING. NS PLACED ON TKO, LR TO BE STARTED. BED ALARM ON.
[2021-12-18 20:06] LABS: Glucose, Blood 878 mg/dL (70-99)
[2021-12-18 21:12] LABS: Glucose, Blood 816 mg/dL (70-99)
[2021-12-18 21:45] LABS: Bun/Creatinine Ratio 38.3 (12.0-20.0); Calcium, Blood 7.8 mg/dL (8.5-10.1); Creatinine, Blood 2.98 mg/dL (0.60-1.20); Potassium, Blood 3.6 mmol/L (3.5-5.5)
[2021-12-18 23:44] LABS: Glucose, Blood 671 mg/dL (70-99)
[2021-12-19 00:40] LABS: Glucose, Blood 572 mg/dL (70-99)
[2021-12-19 04:14] LABS: Bun/Creatinine Ratio 37.5 (12.0-20.0); Calcium, Blood 7.9 mg/dL (8.5-10.1); Creatinine, Blood 2.93 mg/dL (0.60-1.20)
--- NOTE | 2021-12-19 06:23 | NUR ---
SHIFT SUMMARY: WAS ADMITTED YESTERDAY PRIOR TO SHIFT. BS WERE 1180 ON ADMISSION. PLACED ON INSULIN DRIP AT 2.2, CURRENTLY RUNNING AT 2UNITS/HR. HOURLY BLOOD SUGARS SHOWED GOOD FALL OF GLUCOSE SLOWLY T/O THE NIGHT, LAST BLOOD SUGAR WAS 265. D51/4 WAS STARTED AROUND 0530. BECAME MORE ALERT BLOOD SUGAR CAME DOWN. DID GET HIM TO SPEAK ONE WORD, BUT MOSTLY TRYS AND IS UNABLE TO. NON-VERBAL, WILL FOCUS FOR SECONDS BUT LOOSES TRACKING, NYSTAGMUS BILATERALLY ALL NIGHT. PUPILS DILATED TO 6 AND VERY SLUGGISH, RED SCLERA. CACHEXIA, STATES HE HAS NOT EATEN SINCE DISCHARGED BUT DOES DRINK HIS SODA. SHE ALSO REPORTED NON-COMPLIANCE WITH MEDS AND BLOOD SUGAR CHECK. ORAL CAVITY VERY DRY, WITH LARGE STICKY THICK CAST REMOVED FROM GUMS AND THROAT. ORAL CARE WAS DOWN ALMOST Q2 TO HELP WITH BLOODY GUMS AND MOISTURE. PATIENT DOES SUCK ON GREEN SPONGES. TACHYPNEIC WHEN ANXIOUS. ANXIETY AND FEARFUL WHEN MOVING HIM. CURRENTLY RUNNING SINUS TACH 100'S. HYPOTHERMIC WHEN ARRIVED NOW RUNNING FEBRILE 99'S. BILATERAL BLUE TOES LEFT > RIGHT. FAINT PULSES ON LEFT AND COOL TO TOUCH. ABDOMIN SUKEN IN RIB CAGE SHOWING, HYPOACTIVE. DEHYDRATED. ONLY 300CC OUTPUT YELLOW SEDIMENT. ABRASION TO RIGHT ELBOW, CLEANSED AND DRESSING APPLIED. REDNESS ON BOTTOM. LABS: ANION GAP DOWN TO 10, NA 159, CARBON DIOXIDE UP TO 20, GFR 22, CREATINE 2.93. TOX POSITIVE FOR AMPHETAMINE AND METH. RESTRAINTS SOFT WRIST STARTED DUE TO PULLING ON CORDS AND GETTING TANGLED. STATES SHE WILL NOT BE ABLE TO CARE FOR HIM, AND THAT THEY ARE LOSING THEIR HOME. ORDER FOR WASTE CHOPPER CONSULT PLACED. BED ALARM ON. WILL REPORT TO DAYSRIFT.
[2021-12-19 09:42] LABS: Bun/Creatinine Ratio 38.8 (12.0-20.0); Calcium, Blood 7.6 mg/dL (8.5-10.1); Creatinine, Blood 2.81 mg/dL (0.60-1.20)
[2021-12-19 13:36] LABS: Creatine Kinase MB 9.2 ng/mL (0.0-3.6); Creatine Kinase MB Index 0.7 (0.0-4.0)
[2021-12-19 16:43] LABS: Bun/Creatinine Ratio 41.4 (12.0-20.0); Calcium, Blood 7.3 mg/dL (8.5-10.1); Creatinine, Blood 2.2 mg/dL (0.60-1.20); Potassium, Blood 3.7 mmol/L (3.5-5.5)
--- NOTE | 2021-12-19 18:19 | NUR ---
SUMMARY PT IS MORE ALERT THE DAY GOES ON. STILL DISORIENTED. CAN ONLY VERBALIZE ONE WORD SPORADICALLY. CONSTANTLY MOVING IN BED. INSULIN GTT AND D5 1/4NS STOPPED THIS EVENING AFTER LANTUS WAS GIVEN. LR FOR IVF NOW. PT HAD BC DRAWN DUE TO LOW GRADE FEVER AND RLE LOOKS RED AND SWOLLEN. US OF BLE DONE. PT HAS BLUE COLORED TOES. FEET ARE WARM TO TOUCH. STILL HAS NYSTAGMUS AND TREMORS.
[2021-12-19 19:46] LABS: Source, Urine Foley catheter
[2021-12-19 19:50] LABS: Appearance, Urine Cloudy (Clear); Bilirubin, Urine Neg (Neg); Blood, Urine 5+ (Neg); Color, Urine Yellow (P-Yellow); Glucose Qualitative, Urine 2+ (Neg); Ketones, Urine Neg (Neg); Leukocyte Esterase, Urine 3+ (Neg); Nitrite, Urine Neg (Neg); Protein, Urine 2+ (Neg); Specific Gravity, Urine 1.015 (1.003-1.022); Urobilinogen, Urine NORM (Normal)
[2021-12-19 20:41] LABS: Red Blood Cells, Urine 0-2 /hpf (0-2); Squamous Epithelial Cells Rare /hpf (Few); White Blood Cells, Urine 25-50 /hpf (0-5)
[2021-12-19 20:42] LABS: Amorphous Mod (0-Heavy); Bacteria Many /hpf; Mucus Light (0-Heavy)
[2021-12-19 20:43] LABS: Hyaline Casts 0-2 /lpf (0-2); Uric Acid Crystals Many /hpf
--- NOTE | 2021-12-19 21:43 | NUR ---
SHIFT ASSESSMENT ASSUMED CARE OF PT @ 1900. PT ALERT LAYING IN BED, ONLY ABLE TO STATE HIS NAME. APPEARS EMACIATED. RESPONDS INAPPROPRIATELY TO OTHER QUESTIONS. UNABLE TO FOLLOW COMMANDS. PT CONTINOUSLY PULLING AT CORDS, LINES, AND TUBES, HENCE BL SOFT WRIST RESTRAINTS. TEMP PROBE FUNEZ IN PLACE, YELLOW URINE c SEDIMENT, TEMP OF 101.8. RECTAL TYLENOL GIVEN FOR FEVER. LR INFUSING IN JOSE PICC @ 100MLS/HR.
--- NOTE | 2021-12-20 06:19 | NUR ---
SHIFT SUMMARY PT DID NOT SLEEP DURING THE NIGHT, CONTINOUSLY MOVING IN BED. SLOWLY BECOMING MORE RESPONSIVE, STATES HIS NAME AND . FOLLOWING SIMPLE COMMANDS, VANG, ATTEMPTING TO ASSIST WITH TURNS BUT VERY WEAK. MOANS IN PAIN WITH MOVEMENT OF LEGS. LLE REMAINS MORE PURPLE/ DISCOLORED THAN RLE. REMAINS IN BL WRIST RESTRAINTS TO PROTECT PICC LINE AND CORDS. TEMP FUNEZ CATH DRAINING MYRNA URINE, OUTPUT IMPROVING, 1100ML OUT THIS SHIFT. NO OTHER ACUTE CHANGES NOTED, WILL CONTINUE TO MONITOR.
[2021-12-20 08:10] LABS: BASOPHILS ABSOLUTE AUTO 0.01 K/mm3 (0.00-0.23); BASOPHILS PERCENT AUTO 0 % (0-2); Hemoglobin 10.7 g/dL (13.5-17.5); Mean Corpuscular HGB 29.2 pg (26.0-34.0); Mean Corpuscular HGB Conc 32.4 g/dL (31.5-36.5); Mean Corpuscular Volume 90 fL (80-100); Mean Platelet Volume 11.7 fL (9.1-12.4); Platelet Count 123 K/mm3 (150-400); RDW Coefficient Variation 13.8 % (11.7-14.2); RDW Standard Deviation 45.6 fL (35.1-46.3); Red Blood Cell Count 3.66 M/mm3 (4.30-5.90); White Blood Cell Count 8.63 K/mm3 (4.00-11.30)
[2021-12-20 08:15] LABS: EOSINOPHILS PERCENT AUTO 0 % (0-6); IMMATURE GRAN ABSOLUTE AUTO 0.06 K/mm3 (0.00-0.10); IMMATURE GRAN PERCENT AUTO 1 % (0-1); LYMPHOCYTES ABSOLUTE AUTO 0.51 K/mm3 (0.84-5.20); LYMPHOCYTES PERCENT AUTO 6 % (21-46); MONOCYTES ABSOLUTE AUTO 0.18 K/mm3 (0.16-1.47); MONOCYTES PERCENT AUTO 2 % (4-13); NEUTROPHILS ABSOLUTE AUTO 7.87 K/mm3 (1.96-9.15); NEUTROPHILS PERCENT AUTO 91 % (41-73)
[2021-12-20 08:25] LABS: Calcium, Blood 7.8 mg/dL (8.5-10.1); Creatinine, Blood 1.42 mg/dL (0.60-1.20); Potassium, Blood 3.4 mmol/L (3.5-5.5)
[2021-12-20 14:50] LABS: Anion Gap 5 mmol/L (6-16); Blood Urea Nitrogen 49 mg/dL (8-24); Bun/Creatinine Ratio 40.5 (12.0-20.0); CO2, Blood 26 mmol/L (21-32); Chloride, Blood 128 mmol/L (98-108); Creatinine, Blood 1.21 mg/dL (0.60-1.20); Glomerular Filtration Rate >60 (60-); Glucose, Blood 190 mg/dL (70-99); Potassium, Blood 3.3 mmol/L (3.5-5.5); Sodium, Blood 159 mmol/L (136-145)
--- NOTE | 2021-12-20 17:59 | NUR ---
SUMMARY PT IS MORE ALERT THE DAY GOES ON. HE CAN STATE HIS NAME AND . NOW OCCASSIONALY HE WILL SAY SEVERAL WORDS AT A TIME INSTEAD OF ONE OR TWO WORD ANSWERS. STILL CONSTANTLY FIDGETS IN BED. WILL PULL ON LINES AND CATHETER IF UNRESTRAINED. NYSTAGMUS EYE MOVEMENT HAS IMPROVED AND BARELY PRESENT. PT FAILED BEDSIDE RN SWALLOW EVAL AND SPEECH THERAPY SWALLOW EVAL. DOING FREQUENT PO CARE DUE TO CASTINGS IN MOUTH. DR. GUZMÁN WAS CONSULTED TODAY FOR DISCOLORED BLE'S. DR. GUZMÁN CAME TO BEDSIDE AND PROMPTLY LEFT, UNSURE OF THE PLAN FOR LE'S. BLE'S ARE TENDER TO TOUCH, PT WILL YELL OUT WHEN THEY ARE TOUCHED. SPOKE WITH ON PHONE TODAY. SHE STATES THEY ARE HAVING TO MOVE BY THE OUT OF THEIR HOME. THEY HAVE NO RUNNING WATER OR ELECTRICITY AND MINIMAL HEAT. SHE IS UNABLE TO CARE FOR HIM ANYMORE.
--- NOTE | 2021-12-20 21:43 | NUR ---
SHIFT ASSESSMENT ASSUMED CARE OF PT @ 1900. PT ALERT, ABLE TO STATE NAME, , AND TOWN. WILL FOLLOW SIMPLE COMMANDS BUT FORGETFUL. ATTEMPTED TO DC RESTRAINTS, REMINDED PT TO NOT PULL AT IV AND CORDS BUT HE QUICKLY BEGAN TUGGING AT LINES WHILE NURSE IN THE ROOM. BL SOFT RESTRAINTS REMAIN IN PLACE. BLE UNCHANGED, TOES DISCOLORED. DR GUMZÁN IN TODAY TO ASSESS LOWER EXTREMITIES BUT HAD TO LEAVE FOR ANOTHER CASE. THIS NURSE WILL FOLLOW UP WITH DR ARIELLE HAY. TEMP PROBE FUNEZ PATENT, DRAINING MYRNA URINE WITH SEDIMENT. VSS. PT NPO, FAILED SWALLOW EVAL. NEW ORDERS FOR KCL AND IV MAINTENANCE FLUIDS. WILL MONITOR CLOSELY.
[2021-12-21 03:39] LABS: Hematocrit 31.1 % (37.0-53.0); Hemoglobin 10.2 g/dL (13.5-17.5); Mean Corpuscular HGB 29.7 pg (26.0-34.0); Mean Corpuscular HGB Conc 32.8 g/dL (31.5-36.5); Mean Corpuscular Volume 90 fL (80-100); Mean Platelet Volume 12.2 fL (9.1-12.4); Platelet Count 110 K/mm3 (150-400); RDW Coefficient Variation 14.1 % (11.7-14.2); Red Blood Cell Count 3.44 M/mm3 (4.30-5.90); White Blood Cell Count 7.38 K/mm3 (4.00-11.30)
[2021-12-21 04:24] LABS: Anion Gap 6 mmol/L (6-16); Blood Urea Nitrogen 35 mg/dL (8-24); Bun/Creatinine Ratio 34.7 (12.0-20.0); CO2, Blood 24 mmol/L (21-32); Calcium, Blood 7.6 mg/dL (8.5-10.1); Chloride, Blood 127 mmol/L (98-108); Creatinine, Blood 1.01 mg/dL (0.60-1.20); Glomerular Filtration Rate >60 (60-); Glucose, Blood 155 mg/dL (70-99); Potassium, Blood 3.1 mmol/L (3.5-5.5); Sodium, Blood 157 mmol/L (136-145)
[2021-12-21 05:28] LABS: BAND PERCENT MAN 9 % (0-8); BASOPHILS PERCENT MAN 0 % (0-2); EOSINOPHILS PERCENT MAN 0 % (0-6); LYMPHOCYTES ABSOLUTE MAN 0.22 K/mm3 (0.84-5.20); LYMPHOCYTES PERCENT MAN 3 % (21-46); MONOCYTES ABSOLUTE MAN 0.22 K/mm3 (0.16-1.47); MONOCYTES PERCENT MAN 3 % (4-13); NEUTROPHILS ABSOLUTE MAN 6.93 K/mm3 (1.96-9.15); SEG NEUTROPHILS PERCENT MAN 85 % (41-73); TOTAL CELLS COUNTED 100
--- NOTE | 2021-12-21 06:28 | NUR ---
SHIFT SUMMARY PT AWAKE T/O THE NIGHT, CONSTANTLY MOVING IN BED. REMAINS ALERT TO PERSON AND , KNOWS HE IS IN THE HOSPITAL BUT UNSURE WHY. QUITE FORGETFUL. CONSTANT REDIRECTION NEEDED DUE TO PT PULLING ON LINES, CATHETER, AND CORDS. BL SOFT WRIST RESTRAINTS REMAIN ON. FREQUENT ORAL CARE PROVIDED, PT REQUESTING DRINK, WILL REQUEST SPEECH TO REPEAT SWALLOW EVAL. LLE c LESS MOBILITY, COLOR APPEARS TO BE DARKENING IN TOES. DOPPLER CONFIRMED PULSE IN LLE DP. TEMP PROBE FUNEZ c INCREASE URINE OUTPUT, TEMP AROUND 100F T/O NIGHT. KCL INFUSING IN JOSE PICC. NO OTHER ACUTE CHANGES NOTED.
--- NOTE | 2021-12-21 09:01 | NUR ---
DR GUZMÁN ROUNDING ON PATIENT WITH RESIDENTS
[2021-12-21 10:56] LABS: Anion Gap 6 mmol/L (6-16); Blood Urea Nitrogen 29 mg/dL (8-24); Bun/Creatinine Ratio 29.8 (12.0-20.0); CO2, Blood 22 mmol/L (21-32); Calcium, Blood 7.6 mg/dL (8.5-10.1); Chloride, Blood 126 mmol/L (98-108); Creatinine, Blood 0.97 mg/dL (0.60-1.20); Glomerular Filtration Rate >60 (60-); Glucose, Blood 199 mg/dL (70-99); Potassium, Blood 3.5 mmol/L (3.5-5.5); Sodium, Blood 154 mmol/L (136-145)
[2021-12-21 11:01] LABS: Anti-Xa UFH, PHA Monitoring <0.10 IU/mL; International Normalized Ratio 1.24; Prothrombin Time Results 12.8 Sec (9.7-11.5)
--- NOTE | 2021-12-21 11:06 | NUR ---
ASSUMED CARE: REPORT RECIEVED FROM KHADAR HIDALGO. CALL TO DR Slaughter REGARDING PT'S STATUS. STATES SHE WILL DISCUSS WITH TEAM TO DETERMINE IF HE CAN HAVE STATUS CHANGE. STATES ODOM BITE AND THAT DR GUZMÁN IS PLANNING ON PROCEDURE IN THE NEXT FEW DAYS AND HEPARIN GTT IS NEEDED FOR 48 HOURS.
--- NOTE | 2021-12-21 12:50 | NUR ---
ATTEMPTED TO PLACE DOBHOFF TWICE WITH XRAY SHOWING LUNG PLACEMENT. PT HAD WEAK COUGH WITH THIS BUT DID NOT DESATURATE. CALL TO DR Slaughter WHO STATED TO GIVE MEDS WITH APPLESAUCE PER SPEECH RECOMMENDATION AND TO SEE HOW EVALUATION GOES TOMORROW. LEAD SUSTAINABILITY SPECIALIST AWARE
--- NOTE | 2021-12-21 14:24 | NUR ---
CALL TO DR Slaughter REGARDING PT'S FREQUENT DIARRHEA. STATES NO STOOL SAMPLE AT THIS TIME BUT RECTAL TUBE OK DUE TO INCREASED AISSATUO TENDERNESS
--- NOTE | 2021-12-21 18:39 | NUR ---
SHIFT SUMMARY: PT WAS SEEN BY DR GUZMÁN AND FELT THAT TOES COULD ONLY BE MEDICALLY MANAGED WITH NO PROCEDURE BEING ABLE TO BE DONE AT THIS TIME. CALLED TO GET UPDATE. WAS TOLD ABOUT SPEECH THERAPY EVALUATION AND CURRENT STATUS. PT TALKS TO STAFF BUT SPEECH IS SLURRED. BILATERAL WRIST RESTRAINTS DUE TO CONFUSION AND PULLING AT LINES. NO ACUTE NEEDS AT THIS TIME.
--- NOTE | 2021-12-21 19:15 | NUR ---
ASSUMPTION OF CARE NOTE: PT WITH NO S/S OF ACUTE DISTRESS NOTED AT TIME OF ASSUMPTION OF CARE
[2021-12-22 00:31] LABS: Hematocrit 29.6 % (37.0-53.0); Hemoglobin 9.6 g/dL (13.5-17.5); Mean Platelet Volume 12.6 fL (9.1-12.4); Platelet Count 106 K/mm3 (150-400)
--- NOTE | 2021-12-22 02:00 | NUR ---
NOTIFIED DR STOCKTON ON PT LOW URINE OUTPUT AND LOW SERUM PHOSPH-SEE ORDERS
--- NOTE | 2021-12-22 05:51 | NUR ---
SHIFT SUMMERY- NO ACUTE CHANGES OVERNIGHT. PT CONTINUES TO BE CONFUSED. SR ON THE MONITOR/ROOM AIR. RECTAL TUBE AND FUNEZ CATH INTACT.
--- NOTE | 2021-12-22 08:10 | NUR ---
Received reort from Starr RUBALCAVA. Patient was sleeping at time of report and is currently awake and is alert to place, self, home address, and reason for admission. He is on RA and sats 99%. He has PICC line to JOSE, dressing intact and site WNL's and is infusing Heparin at 18 units/kg/hr and NS at 75ml/hr. He has bilateral soft wrist restraints as he has a tendency to be disoriented and likes to climb out of bed. He has 16Fr temp herr draining to gravity light rigoberto colored urine. he also has rectal tube in place draining to gravity brown/green liquid /soft stool . He has mepelex dressing to right posterior forearm and top right of left foot. left distal toes are dis-colored and rages of purple and on right 1st and 2nd toes, and the rest have skin off tops of toes , see wound pics.
--- NOTE | 2021-12-22 08:37 | NUR ---
Dr Sandoval by and made patient med/tele. Bath given and rectal tube care, herr care and repositioned up in bed so that ST call assess. He has no pedal pulses per doppler and posterior tibial bilaterally by doppler.
[2021-12-22 11:18] LABS: Anion Gap 7 mmol/L (6-16); Blood Urea Nitrogen 33 mg/dL (8-24); Bun/Creatinine Ratio 35.2 (12.0-20.0); CO2, Blood 20 mmol/L (21-32); Chloride, Blood 125 mmol/L (98-108); Creatinine, Blood 0.94 mg/dL (0.60-1.20); Glomerular Filtration Rate >60 (60-); Glucose, Blood 249 mg/dL (70-99); Potassium, Blood 3.1 mmol/L (3.5-5.5); Sodium, Blood 152 mmol/L (136-145)
--- NOTE | 2021-12-22 12:30 | NUR ---
Patients diet changed after passing ST to puree and straw restictins. CBG 249 and insulin given per JAN. He tolerated feeding self lunch and ate 50% and 240 ml liquids. he has been out of restraints since 999. VSS.
--- NOTE | 2021-12-22 12:51 | NUR ---
Called to see pt concerns for living situation. customer care coordinator notes regarding them trying to find housing. pt could not tell me any detatils of house and who owns it. states on waiting list. pt frail ma be getting more forgetfull may need placement. will update care managers.
--- NOTE | 2021-12-22 18:09 | NUR ---
Patient remains out of restraints and drects easily. He Remains on RA and sats >>90%. patient had CT and radiologist called and stated herr was and ballon pulled into urethra and deflated and re andvanced after thuroghly cleaning and had small amount of blood and went back to cloudy yellow urine. After reinstilling water into rectal tube balloon rectal leak slow drastically. He is sitting up in bed and able to feed self, tolerated PO meds with dinner. CBG 291 and SS insulin and scheduled. Rectal tube continues to be patent.
--- NOTE | 2021-12-22 20:00 | NUR ---
Assumed care Received report from KHADAR Clay. Pt is alert and oriented to self, place, year, and able to follow commands. He verbalizes needs well and appropriately. States he knows he needs to stay in bed. Currently on RA, SpO2 >96%, unlabored and no c/o SOB. HR is normal sinus, rate in 70's, BP stable. He has a PICC to [facility], infusing Heparin at 22 units/kg/hr and NS at 75ml/hr. He is able to take sips of honey thick liquids with supervision and does well. Herr patent, draining yellow urine with some sediment. Small amount of blood oozing out of urethra r/t trauma of herr balloon in urethra earlier in hospital stay. He reports minimal discomfort. Rectal tube patent, draining liquid brown stool. He has foam dressing in place to coccyx for reddened, blanchable area. Mepilex also in place to right forearm, wound documented on assessment and picture in chart. BLE toes are both discolored purple, L>R, Mepilex in place to left foot. Two red scab-like lesions present on top of right 2nd and 3rd toes, ANGEL. See chart for pictures. Orders reviewed, will treat as prescribed.
[2021-12-23 05:10] LABS: Hematocrit 25.1 % (37.0-53.0); Mean Corpuscular HGB 29.4 pg (26.0-34.0); Mean Corpuscular HGB Conc 31.9 g/dL (31.5-36.5); Mean Corpuscular Volume 92 fL (80-100); Mean Platelet Volume 11.9 fL (9.1-12.4); NRBC ABSOLUTE 0.02 K/mm3 (0.00-0.02); NRBC Auto 0.3 /100 WBC (0.0-0.2); Platelet Count 120 K/mm3 (150-400); RDW Coefficient Variation 14.2 % (11.7-14.2); RDW Standard Deviation 47.9 fL (35.1-46.3); Red Blood Cell Count 2.72 M/mm3 (4.30-5.90)
[2021-12-23 05:26] LABS: Anion Gap 9 mmol/L (6-16); Blood Urea Nitrogen 25 mg/dL (8-24); Bun/Creatinine Ratio 25.7 (12.0-20.0); CO2, Blood 21 mmol/L (21-32); Calcium, Blood 6.7 mg/dL (8.5-10.1); Chloride, Blood 119 mmol/L (98-108); Creatinine, Blood 0.97 mg/dL (0.60-1.20); Glomerular Filtration Rate >60 (60-); Glucose, Blood 273 mg/dL (70-99); Phosphorus, Blood 1.4 mg/dL (2.5-4.9); Potassium, Blood 2.9 mmol/L (3.5-5.5); Sodium, Blood 149 mmol/L (136-145)
--- NOTE | 2021-12-23 06:44 | NUR ---
PT SLEPT OFF/ON MAJORITY OF NIGHT, BUT ABOUT EVERY TWO HOURS, HE WOULD WAKE UP REQUESTING TO BE "STRAIGHTENED AND BOOSTED" AND WOULD LIKE WATER. LIQUIDS ARE HONEY THICK AND HE DID WELL DRINKING WITHOUT SIGNS/SYMPTOMS OF ASPIRATION. VERY GOOD PO INTAKE, NS DISCONTINUED THIS AM PER DR. STOCKTON. HE SEEMS TO BE MORE ALERT AND ORIENTED THE NIGHT CONTINUES, HE IS ABLE TO ASSIST WITH TURNS VERY WELL AND FOLLOWS COMMANDS. FUNEZ REMAINS PATENT, GOOD OUTPUT OF 1500ML TEA COLORED URINE WITH SOME SEDIMENT. RECTAL TUBE PATENT, DRAINING DARK LIQUID STOOL. FOAM DRESSING CHANGED ON COCCYX AND REDNESS HAS IMPROVED, REMAINS BLANCHABLE. AWAITING 20MM KPHOS REPLACEMENT FOR K+ OF 2.9 AND PHOS OF 1.4. WILL REPORT TO ONCOMING SHIFT.
--- NOTE | 2021-12-23 07:19 | NUR ---
Received report from Randi RUBALCAVA. Patient is intubated and sedated. She has 8.0 ET and 24 cm at lips with vent settings of AC/VC 26/350/30/5.0 and sats 99%. She withdrawls with care or nocious stimuli. She has right groin CL dressing intact and site WNL's and is infuisng Levophed double strength at 1- mcg/min, propofol at 30 mcg/kg/min, Vasopressin at 0.04 units/min, and NS TKO. Patient has 16 Fr Temp herr draining to gravity yellow urine and temp of 99.2.
--- NOTE | 2021-12-23 08:04 | NUR ---
Received report from Jane RUBALCAVA. Patient was sleeping at time of report and is currently awake and is alert to place, self, home address, and reason for admission. He is on RA and sats 98%. He has PICC line to JOSE, dressing intact and site WNL's and is infusing Heparin at 24 units/kg/hr. Sitting up eating breakfast and tolerating well. He has 16Fr temp herr draining to gravity rigoberto colored urine. he also has rectal tube in place draining to gravity brown/green liquid /soft stool . He has mepelex dressing to right posterior forearm and top right of left foot. left distal toes are dis-colored and rages of purple and on right 1st and 2nd toes, and the rest have skin off tops of toes , see wound pics. =
--- NOTE | 2021-12-23 12:02 | NUR ---
Patient callas appropriately. His tolerating lunch with setup and is able to feed self. Heparin increased to 27 units/min and K Phos infusing. He remains on RA and sats 97%
--- NOTE | 2021-12-23 15:50 | NUR ---
pt arrived to 337 via bed from ICU, report from Obed RUBALCAVA, pt is awake and a/ox2, cooperative with care, follows commands well, rectal tube pulled out when he was transfered to new bed, will leave out for now as he is suppose to start immodium tomorow, attends placed, oriented to room layout and call system, call light in reach.
--- NOTE | 2021-12-23 18:21 | NUR ---
pt complains of being cold, warm blanket given, cbg was 129, he is scheduled 8 units, he didn't eat much for dinner, spoke with Dr. Sandoval he ordered to give 2 units at this time. no further changes this shift, call light in reach. pt moves himself around in bed.
--- NOTE | 2021-12-24 03:45 | NUR ---
SHIFT SUMMARY PATIENT HAD NO ACUTE CHANGES OBSERVED. AXOX 2-3 AND BEDREST. PICC JOSE INTACT AND CAN LINE DRAW OFF [place]. PROCUREMENT ANALYST REPORTS NSR @ 70. CBG 174. FUNEZ PATENT AND DRAINING TO GRAVITY. INFUSING HEPARIN AT 29.1 mL/HR. MANAGE BY PHARMACY. VSS/AFEBRILE. DENIES PAIN, SOB, AND N/V. CALL LIGHT IN REACH. BED IN LOWEST POSITION. WILL CONTINUE TO MONITOR UNTIL DAY SHIFT NURSE ASSUMES CARE.
[2021-12-24 07:58] LABS: Hematocrit 27.1 % (37.0-53.0); Hemoglobin 8.7 g/dL (13.5-17.5); Mean Corpuscular HGB Conc 32.1 g/dL (31.5-36.5); Mean Corpuscular Volume 90 fL (80-100); Platelet Count 165 K/mm3 (150-400); RDW Coefficient Variation 13.9 % (11.7-14.2); RDW Standard Deviation 45.8 fL (35.1-46.3); White Blood Cell Count 6.14 K/mm3 (4.00-11.30)
[2021-12-24 08:14] LABS: Anion Gap 7 mmol/L (6-16); Blood Urea Nitrogen 14 mg/dL (8-24); Bun/Creatinine Ratio 15.8 (12.0-20.0); CO2, Blood 23 mmol/L (21-32); Calcium, Blood 6.9 mg/dL (8.5-10.1); Chloride, Blood 116 mmol/L (98-108); Creatinine, Blood 0.89 mg/dL (0.60-1.20); Glomerular Filtration Rate >60 (60-); Glucose, Blood 155 mg/dL (70-99); Potassium, Blood 3.1 mmol/L (3.5-5.5); Sodium, Blood 146 mmol/L (136-145)
--- NOTE | 2021-12-24 11:17 | NUR ---
CHANGED DRESSING ON PATIENTS RIGHT ELBOW; CLEANED WOUND WITH WOUND CLEANSER AND PLACED NEW MEPILEX OVER WOUND. WOUND APPEARS TO BE HEALING.
[2021-12-24 13:58] LABS: Influenza A, PCR NEGATIVE (NEGATIVE); Influenza B, PCR NEGATIVE (NEGATIVE); Resp Syncytial Virus, PCR NEGATIVE (NEGATIVE)
[2021-12-24 14:01] LABS: SARS-Cov-2 (COVID-19) PCR, MMC POSITIVE (NEGATIVE)
--- NOTE | 2021-12-24 17:14 | NUR ---
PT TAKEN TO THE CRYSTAL INSPECTOR PT WAS A/OX4, PLEASANT AND COOPERATIVE APPEARED TO BE BREATHING EASILY ON RA , THE PT WAS NPO T/O THE DAY EXCEPT FOR POTASSIUM GIVEN WITH A BITE OF APPLESAUCE INSTRUCTED.PT WILL TRANSFER TO PCU FOLLOWING
--- NOTE | 2021-12-24 17:16 | NUR ---
STUDENT ASSESSMENT I AGREE WITH AND WAS PRESENT DURING THE GREASE MAKER HEAD AKUA'S ASSESSMENT.
--- NOTE | 2021-12-24 19:30 | NUR ---
PT ARRIVES TO ICU 12 FROM SENIOR ANIMAL TRAINER AT 1850, RESTING QUIETLY AND APPEARS TO BE SLEEPING WHEN UNDISTURBED, HE DOES ROUSE TO VERBAL STIMULI, ANSWERS THAT HE IS IN THE [facility] DECEMBER 2021 BUT DOES NOT PROVIDE NUMERIC DATE, PULLS BLANKETS BACK UP OVER SHOULDERS IMMEDIATELY AFTER ORIENTATION INQUIRIES AND CLOSES EYES. PER SENIOR ANIMAL TRAINER STAFF, RIGHT GROIN ACCESS SITE HAS ANGIO-SEAL CLOSURE DEVICE, SMALL HEMATOMA MEDIAL TO PUNCTURE IS REVIEWED WITH OFFGOING RN, PLAN IS TO MONITOR X 2 HOURS AND IF NO CHANGES, THEN RESUME HEPARIN GTT, THIS IS DISCUSSED WITH PHARMACY, WILL PLAN TO RESUME HEPARIN GTT AT 28 UNITS/KG/HR AT 2129. NO VISIBLE INCREASED WORK OF BREATHING, SATS ARE NOTED 99-100% WITH OXYGEN VIA NASAL CANNULA AT 2 L/MIN WILL PLAN TO TITRATE TO ROOM AIR TOLERATED, LUNGS ARE CLEAR WITH DIM BASES BILAT. HRR, SINUS ON MONITOR, RATE 60S AT REST, PRESSURES SOFT BUT MAP MAINTAINING, WILL MONITOR TREND, PULSES PRESENT BILAT LOWER EXTREMITIES TO DOPPLER, SPO2 PROBE PLACED TO RIGHT 4TH TOE. HYPERACTIVE BOWEL TONES NOTED, ABD SOFT, NO GRIMACING WITH PALPATION, ASPIRATION PRECAUTIONS/FEEDING PLAN IS NOTED, WILL HOLD HS MEDS DUE TO POSITIONING RESTRICTIONS AND ASPIRATION RISK. TEMP PROBE FUNEZ IN PLACE, WILL MONITOR URINE OUTPUT. PICC TO RIGHT UPPER ARM, FLUSHES WELL, SITE WNL, WILL MONITOR.
[2021-12-25 04:06] LABS: BASOPHILS ABSOLUTE AUTO 0.01 K/mm3 (0.00-0.23); BASOPHILS PERCENT AUTO 0 % (0-2); EOSINOPHILS ABSOLUTE AUTO 0.02 K/mm3 (0.00-0.68); EOSINOPHILS PERCENT AUTO 0 % (0-6); Hematocrit 25.5 % (37.0-53.0); Hemoglobin 8.1 g/dL (13.5-17.5); IMMATURE GRAN ABSOLUTE AUTO 0.08 K/mm3 (0.00-0.10); IMMATURE GRAN PERCENT AUTO 1 % (0-1); LYMPHOCYTES PERCENT AUTO 12 % (21-46); MONOCYTES ABSOLUTE AUTO 0.57 K/mm3 (0.16-1.47); MONOCYTES PERCENT AUTO 9 % (4-13); Mean Corpuscular HGB 29.3 pg (26.0-34.0); Mean Corpuscular HGB Conc 31.8 g/dL (31.5-36.5); Mean Corpuscular Volume 92 fL (80-100); Mean Platelet Volume 11.7 fL (9.1-12.4); NEUTROPHILS ABSOLUTE AUTO 5.16 K/mm3 (1.96-9.15); NEUTROPHILS PERCENT AUTO 78 % (41-73); Platelet Count 169 K/mm3 (150-400); RDW Coefficient Variation 14.2 % (11.7-14.2); RDW Standard Deviation 47.2 fL (35.1-46.3); Red Blood Cell Count 2.76 M/mm3 (4.30-5.90); White Blood Cell Count 6.64 K/mm3 (4.00-11.30)
[2021-12-25 04:25] LABS: Anion Gap 5 mmol/L (6-16); Blood Urea Nitrogen 11 mg/dL (8-24); Bun/Creatinine Ratio 13.9 (12.0-20.0); CO2, Blood 24 mmol/L (21-32); Calcium, Blood 6.8 mg/dL (8.5-10.1); Chloride, Blood 118 mmol/L (98-108); Creatinine, Blood 0.79 mg/dL (0.60-1.20); Glomerular Filtration Rate >60 (60-); Glucose, Blood 130 mg/dL (70-99); Potassium, Blood 3.4 mmol/L (3.5-5.5); Sodium, Blood 147 mmol/L (136-145)
--- NOTE | 2021-12-25 06:57 | NUR ---
PT RESTS QUIETLY THROUGHOUT SHIFT, CHIEF COMPLAINT THIS SHIFT HAS BEEN FREQUENCY OF ASSESSMENTS TO RIGHT GROIN ACCESS SITE HEMATOMA "I CAN'T GET ANY SLEEP WITH YOU WAKING ME UP ALL THE TIME" DID VERBALIZE UNDERSTANDING OF RISK OF BLEEDING AND NECESSITY OF FREQUENT ASSESSMENTS. RIGHT GROIN ACCESS SITE REMAINED STABLE THROUGHOUT SHIFT, PULSES TO LEFT LOWER EXTREMITY DID IMPROVE THROUGHOUT SHIFT TO POSSIBLY VERY FAINTLY PALPABLE HOWEVER WAS MARKEDLY IMPROVED BY DOPPLER, TOE AND FOOT COLOR IS IMPROVED THIS AM ALTHOUGH GREAT AND SECOND TOE REMAIN DARK PURPLE/BLACK. PT CONTINUES TO DENY PAIN THROUGHOUT NOC. HE DENIES NUMBNESS TO TOES HOWEVER ALSO CANNOT STATE WHICH TOE IS BEING TOUCHED DURING ASSESSMENTS.
--- NOTE | 2021-12-25 09:12 | NUR ---
ASSUMED CARE PT. ALERT AND ORIENTED THIS AM. PT. REPORTS PAIN TO BILAT LE, REQUESTING TYLENOL. MED FOR PAIN 04/26. PT. CURRENTLY ON RA. ABLE TO REPOSITION SELF IN BED FOR COMFORT TURNING HIGH UP ON BOTH SIDES WHEN SLEEPING. PT. RIGHT GROIN SITE REMAINS WNL, NO HEMAOTMA. PT TOES ON BOTH FEET REMAIN BLACK IN COLOR, LEFT FOOT RED AND WARM TO THE TOUCH THIS AM. DOPPLERS OBTAINED ON BOTH FEET. PT. REMAINS ON HEPARIN GTT WITH PLANS TO RETURN TO ELECTRONICS ENGINEERING TECHNICIAN TOMORROW. PT REPORTS ACHING SENSATION TO TOES. VSS THIS AM. CALL LIGHT IN REACH. ABLE TO FEED SELF BREAKFAST W/O DIFFICULTY THIS AM.
--- NOTE | 2021-12-25 12:30 | NUR ---
PT. ABLE TO REPOSITION SELF IN BED. SPEECH THERAPY IN TO SEE PT TODAY. PLANS TO ADVANCE DIET. CALL LIGHT IN REACH.
--- NOTE | 2021-12-25 17:23 | NUR ---
REPORT TO [employer] ARTISTIC DIRECTOR, VSS, AWAITING ROOM TO BE CLEANED FOR TRANSFER.
[2021-12-26 05:01] LABS: Hematocrit 24.4 % (37.0-53.0); Hemoglobin 7.8 g/dL (13.5-17.5); Mean Platelet Volume 11.4 fL (9.1-12.4); Platelet Count 235 K/mm3 (150-400)
--- NOTE | 2021-12-26 06:00 | NUR ---
SHIFT SUMMARY PATIENT ALERT AND ORIENTED THIS SHIFT. VSS. AND PATIENT REMAINS ON RA. PEDAL PULSES HEARD WITH DOPPLER ONLY. TOES ON BILAT FEET ARE BLACK/BLUE IN COLOR AND HAVE NOT CHNAGED SINCE INITIAL ASSESSMENT. COMPLAINTS OF PAIN ONCE THIS SHIFT, MEDICATED PER EMAR. NO CHANGE IN GROIN SITE. HEPARIN GTT INFUSING. FUNEZ IN PLACE DRAINING DARK YELLOW URINE WITH SOME SEDIMENT. PATIENT ABLE TO MAKE NEEDS KNOWN TO STAFF. NO OTHER SIGNIFICANT CHANGES THIS SHIFT. WILL REPORT TO DAY SHIFT RN.
[2021-12-26 07:48] LABS: Anion Gap 7 mmol/L (6-16); Blood Urea Nitrogen 9 mg/dL (8-24); Bun/Creatinine Ratio 11.3 (12.0-20.0); CO2, Blood 21 mmol/L (21-32); Calcium, Blood 6.8 mg/dL (8.5-10.1); Chloride, Blood 103 mmol/L (98-108); Glomerular Filtration Rate >60 (60-); Glucose, Blood 132 mg/dL (70-99); Potassium, Blood 4.1 mmol/L (3.5-5.5); Sodium, Blood 131 mmol/L (136-145)
--- NOTE | 2021-12-26 07:52 | NUR ---
ASSUMPTION OF CARE Pt is awake and alert to baseline. He is sitting up in bed. IV heparin is infusing as ordered. His herr is patent. Per report the plan is for him to get a revas in the next few days. He is confused at times but does have his call light in reach and is using it.
--- NOTE | 2021-12-26 16:34 | NUR ---
SHIFT SUMMARY Pt is a/o x 3 but is forgetful at times. His heparin gtt continues to infuse as ordered and he is on his second unit of RBCs. His herr is patent. His foot wounds are open to air for now and the plan was for him to go to the micro lab analyst for a revasc with Dr Crane but that may be pushed back until tomorrow depending on scheduling and they are going to call with an update as soon as they have one. His CT was completed as ordered. Podiatry has yet to see the pt. He is able to make his needs known and uses his call light when he needs something.
[2021-12-27 02:20] LABS: BASOPHILS ABSOLUTE AUTO 0.02 K/mm3 (0.00-0.23); BASOPHILS PERCENT AUTO 0 % (0-2); EOSINOPHILS ABSOLUTE AUTO 0.04 K/mm3 (0.00-0.68); EOSINOPHILS PERCENT AUTO 1 % (0-6); Hematocrit 28.6 % (37.0-53.0); Hemoglobin 9.6 g/dL (13.5-17.5); IMMATURE GRAN ABSOLUTE AUTO 0.08 K/mm3 (0.00-0.10); IMMATURE GRAN PERCENT AUTO 1 % (0-1); LYMPHOCYTES ABSOLUTE AUTO 1.46 K/mm3 (0.84-5.20); LYMPHOCYTES PERCENT AUTO 17 % (21-46); MONOCYTES ABSOLUTE AUTO 0.75 K/mm3 (0.16-1.47); MONOCYTES PERCENT AUTO 9 % (4-13); Mean Corpuscular HGB 29.7 pg (26.0-34.0); Mean Corpuscular HGB Conc 33.6 g/dL (31.5-36.5); Mean Corpuscular Volume 89 fL (80-100); Mean Platelet Volume 10.9 fL (9.1-12.4); NEUTROPHILS ABSOLUTE AUTO 6.18 K/mm3 (1.96-9.15); NEUTROPHILS PERCENT AUTO 73 % (41-73); Platelet Count 266 K/mm3 (150-400); RDW Coefficient Variation 14.4 % (11.7-14.2); RDW Standard Deviation 45.9 fL (35.1-46.3); Red Blood Cell Count 3.23 M/mm3 (4.30-5.90); White Blood Cell Count 8.53 K/mm3 (4.00-11.30)
[2021-12-27 03:09] LABS: Anion Gap 5 mmol/L (6-16); Blood Urea Nitrogen 8 mg/dL (8-24); Bun/Creatinine Ratio 9.9 (12.0-20.0); CO2, Blood 24 mmol/L (21-32); Calcium, Blood 7.3 mg/dL (8.5-10.1); Chloride, Blood 113 mmol/L (98-108); Creatinine, Blood 0.81 mg/dL (0.60-1.20); Glomerular Filtration Rate >60 (60-); Glucose, Blood 158 mg/dL (70-99); Sodium, Blood 142 mmol/L (136-145)
--- NOTE | 2021-12-27 06:18 | NUR ---
SHIFT SUMMARY ASSUMED CARE OF PT AT 1900. PT IS A/OX3. HEART SOUNDS REGULAR, LUNG SOUNDS DIMINISHED. PT HAS A FUNEZ DRAINING MYRNA AND SEDIMENT FILLED URINE. PT C/O PAIN IN HIS FEET. PT HAS EXTENSIVE WOUNDS AND DISCOLORATION, TOES ARE PURPLE AND COOL TO TOUCH. PEDAL PULSES HEARD WITH DOPPLER. PT WAS MEDICATED WITH TYLENOL WITH SOME RELEIF.
--- NOTE | 2021-12-27 07:28 | NUR ---
ASSUMPTION OF CARE Pt is sleeping in bed. His heparin continues to infuse per pharmacy. and his PICC is patent. His herr is in place. Will ask the hospitalist what the plan is for him today during rounds. Pt did report ongoing pain to his feet this morning and has been getting PRN tylenol as ordered. His foot cradle remains in place to offset the weight of the blankets on his toes. He has his call light in reach and calls appropriately when needed.
--- NOTE | 2021-12-27 13:04 | NUR ---
UPDATE Dr Ragland came to see the pt and reported that he will need a revasc of the left foot. He gave orders to restart the heparin gtt and will get the pt on the schedule for tomorrow. The pt is aware and agreeable.
--- NOTE | 2021-12-27 17:07 | NUR ---
SHIFT SUMMARY Pt has been a/o x 3 today at baseline with some forgetfulness at times but he can answer questions appropriately. This morning the hospitalist DCd the heparin and ordered PO anticoagulant but then asked to hold off on giving it until we had a plan with Dr Ragland. Dr Ragland saw the pt at the bedside and asked that we re-start the heparin. He is now back on the heparin gtt per Dr Ragladn and pharmacy is managing it. After Dr Ragland read the CT that was done today he decided that he will most likely not do another revasc but still wants to keep the pt NPO after midnight in case things change between now and when he rounds in the morning. A border was drawn on his left foot as it does appear to be more dusky than yesterday. His herr is patent. His PICC line is infusing. He did eat lunch and will be ok to eat dinner tonight. His potassium was replaced this morning as ordered by last night's DR. The pt has been pleasant today considering the changes in the plan and he is agreeable to the current one. He is able to make his needs known and calls for help when needed.
[2021-12-27 21:02] LABS: Anti-Xa UFH, PHA Monitoring 0.41 IU/mL
[2021-12-28 05:03] LABS: BASOPHILS ABSOLUTE AUTO 0.02 K/mm3 (0.00-0.23); BASOPHILS PERCENT AUTO 0 % (0-2); EOSINOPHILS ABSOLUTE AUTO 0.05 K/mm3 (0.00-0.68); EOSINOPHILS PERCENT AUTO 1 % (0-6); Hemoglobin 10.2 g/dL (13.5-17.5); IMMATURE GRAN PERCENT AUTO 1 % (0-1); LYMPHOCYTES ABSOLUTE AUTO 1.58 K/mm3 (0.84-5.20); LYMPHOCYTES PERCENT AUTO 16 % (21-46); MONOCYTES ABSOLUTE AUTO 0.75 K/mm3 (0.16-1.47); MONOCYTES PERCENT AUTO 8 % (4-13); Mean Corpuscular HGB 29.2 pg (26.0-34.0); Mean Corpuscular HGB Conc 32.9 g/dL (31.5-36.5); Mean Corpuscular Volume 89 fL (80-100); Mean Platelet Volume 10.7 fL (9.1-12.4); NEUTROPHILS ABSOLUTE AUTO 7.56 K/mm3 (1.96-9.15); NEUTROPHILS PERCENT AUTO 75 % (41-73); Platelet Count 338 K/mm3 (150-400); RDW Coefficient Variation 14.5 % (11.7-14.2); RDW Standard Deviation 46.1 fL (35.1-46.3); Red Blood Cell Count 3.49 M/mm3 (4.30-5.90); White Blood Cell Count 10.06 K/mm3 (4.00-11.30)
[2021-12-28 05:25] LABS: Anion Gap 4 mmol/L (6-16); Blood Urea Nitrogen 9 mg/dL (8-24); Bun/Creatinine Ratio 12.3 (12.0-20.0); CO2, Blood 25 mmol/L (21-32); Calcium, Blood 7.4 mg/dL (8.5-10.1); Chloride, Blood 113 mmol/L (98-108); Creatinine, Blood 0.73 mg/dL (0.60-1.20); Glomerular Filtration Rate >60 (60-); Glucose, Blood 106 mg/dL (70-99); Potassium, Blood 3.5 mmol/L (3.5-5.5); Sodium, Blood 142 mmol/L (136-145)
--- NOTE | 2021-12-28 05:41 | NUR ---
SHIFT SUMMARY ASSUMED CARE OF PT AT 1900. PT IS A/OX4. HEART SOUNDS REGULAR, LUNG SOUNDS DIMINISHED. PT HAS SOME BLEEDING FROM THE MEADUS. PT DENIES PAIN. URINE WAS YELLOW AND CLEAR WITH SEDIMENT. PT C/O PAIN T/O THE NIGHT, MEDICATED PER EMAR. NEW PICTURES TAKEN IN CHART.
--- NOTE | 2021-12-28 08:25 | NUR ---
CARE ASSUMPTION PATIENT IS ALERT AND ORIENTATED X4. PERRLA. NEURO IS INTACT. PATIENT REPORTS NUMBNESS AND TINGLING TO HIS HANDS, BUT DENIES ANY IN THE LOWER EXTREMITIES. VSS. SPO2 >90% ON RA. TELE SR 75. PATIENT REPORTS PAIN TO HIS LEFT FOOT AND DESCRIBES IT STABBING FEELING. IT IS RELIEVED WITH REPOSITIONING AND PAIN MEDICATION PER EMAR. PATIENT LEFT FOOT IS DISCOLORED, DUSKY APPEARANCE, AND COOL TO TOUCH. PATIENT IS ABLE TO FEEL SENSATION ON THE TOP OF LEFT FOOT AND SLIGHTLY FEEL ON THE TOES. PATIENT LEFT AND RIGHT PEDIS PULSE IS FOUND USING THE DOPPLER. HEPERAIN INFUSING AT 30U/KG/HR. PATIENT LUNG SOUNDS CLEAR. FUNEZ CATH DRAINING WITH GRAVITY, CLEAR YELLOW. SEE SHIFT ASSESSMENT FOR FULL DETAILS. PATIENT IS AWAITING A NUCLEAR MED STUDY THAT WILL BE DONE THIS AFTERNOON. BED IS IN LOWEST POSITION AND CALL LIGHT WITHIN REACH. WILL CONTINUE TO MONITOR AND PROVIDE CARE.
--- NOTE | 2021-12-28 19:05 | NUR ---
TRANSFER UPDATE PT MOVED FROM PCU 16 TO PCU 20 AT 1325. PT A/O X4 AND COOPERATIVE OF CARE. PT REPORT OF CHEST PAIN/PRESSURE SINCE ASSUMING CARE OF PT. PT SEEN BY PT/OT, TOLERATED FAIR, REPORTED WEAKNESS AND DYSPNEA. NUCLEAR MED PROCEDURE DONE TODAY. BED IN LOWEST POSITION, CALL LIGHT WITHING REACH.
--- NOTE | 2021-12-29 06:24 | NUR ---
SHIFT SUMMARY ASSUMED CARE OF PT AT 1900. PT IS A/OX4. HEART SOUNDS REGULAR, LUNG SOUNDS DIMINISHED. PT HAS MORE OF A COUGH TODAY. PT HAS A FUNEZ DRAINING WITH GRAVITY. URINE IS YELLOW WITH LOTS OF SEDIMENT. PT WOUNDS ON FEET ARE OPEN TO AIR. PT WAS MEDICATED WITH TYLENOL FOR PAIN.
--- NOTE | 2021-12-29 17:43 | NUR ---
TRANSFER NOTES REPORT GIVEN TO ANSELMO RUBALCAVA ON MEDICAL FLOOR AT 1702. PT LEFT PCU AT 1730 VIA HOSPITAL BED AND OCCOMPANIED BY THIS RN AND GLUE SPREADER. HEPARIN RUNNIG PER EMAR DURING TRANSFER. PT ON RA DURING TRANSFER. PT BELONGINGS BAGGED AND WITH PT DURING TRANSFER ALONG WITH CHART. PT REPORTED THAT HIS "WALKER FROM HOME SHOULD BE HERE." WALKER IN PT ROOM WAS REPORTED NOT BEING HIS WALKER BY PT . OBTAINED THE WALKER FROM PCU 16 WHERE THE PT WAS TRANSFERED FROM YESTERDAY, PT REPORTS "THAT IS NOT MINE EITHER." PT THEN STATED "I HAVE BEEN MOVED LIKE FIVE DIFFERENT TIMES."
--- NOTE | 2021-12-29 17:50 | NUR ---
CARE ASSUMPTION/SHIFT SUMMARY PATIENT IS ALERT AND ORIENTATED X4. PERRLA. NEURO INTACT. VSS. PATIENT REPORTS NO CHEST PAIN/PRESSURE, SHORTNESS OF BREATH, OR PAIN. LUNG SOUNDS CLEAR RIGHT LOBES, LEFT LOBE LUNG SOUNDS CONGESTED AND LOWER LOBE WHEEZY. PATIENT ON ROOM AIR. PEDIS PULSES FOUND VIA DOPPLER. LEFT FOOT IS WARM WITH TOUCH, LEFT FOOT HAS DISCOLORATION FROM FROSTBITE. RIGHT FOOT-2ND, 3RD, AND GREAT TOE DISCOLORATION FROSTBITE. WOUND CARE CONSULT IS IN FOR TOES. FUNEZ CATH IN PLACE DRAINING WITH GRAVITY. PATIENT ARRIVED TO [facility] FLOOR AT ROUGHLY 1730. BED IS IN LOWEST POSITION AND CALL LIGHT WITHIN REACH. PATIENT EATING DINNER. WILL CONTINUE TO MONITOR AND PROVIDE CARE UNTIL HAND OFF WITH NEXT SHIFT.
[2021-12-30 05:58] LABS: Hematocrit 31.9 % (37.0-53.0); Hemoglobin 10.3 g/dL (13.5-17.5); Mean Corpuscular HGB Conc 32.3 g/dL (31.5-36.5); Mean Corpuscular Volume 90 fL (80-100); Mean Platelet Volume 10.5 fL (9.1-12.4); Platelet Count 384 K/mm3 (150-400); RDW Coefficient Variation 14.4 % (11.7-14.2); RDW Standard Deviation 46.4 fL (35.1-46.3); Red Blood Cell Count 3.55 M/mm3 (4.30-5.90); White Blood Cell Count 11.04 K/mm3 (4.00-11.30)
[2021-12-30 06:25] LABS: Anion Gap 4 mmol/L (6-16); Blood Urea Nitrogen 10 mg/dL (8-24); Bun/Creatinine Ratio 14.8 (12.0-20.0); CO2, Blood 27 mmol/L (21-32); Chloride, Blood 108 mmol/L (98-108); Creatinine, Blood 0.68 mg/dL (0.60-1.20); Glomerular Filtration Rate >60 (60-); Glucose, Blood 63 mg/dL (70-99); Potassium, Blood 3.5 mmol/L (3.5-5.5); Sodium, Blood 139 mmol/L (136-145)
--- NOTE | 2021-12-30 07:41 | NUR ---
PT IS A/OX3-4. HE HAS A FLAT AFFECT BUT ANSWERS QUESTIONS APPROPRIATELY. PER PHARMACY HIS HEPARIN GTT IS THERAPEUTIC AND NO ADJUSTMENTS ARE CURRENTLY NEEDED. HIS PICC HAS BLOOD RETURN AND THE DRESSING WAS CHANGED ON 12/29. PT HAS BETTER CIRCULATION IN HIS LE AND SENSATION IS INCREASING PER PT. PT STATES THAT HE CAME IN WITH A FWW AND THE PT ADVOCATE IS ONBOARD TO FIND HIS FWW BEFORE DISCHAGE.
--- NOTE | 2021-12-30 10:42 | NUR ---
NURSE CLARIFY WITH DR. MENA IN REFERENCE TO XARELTO ADMINISTARTION AND HEPARIN INFUSION ,PER ADMINISTER XARELTO AND DISCONTINUE HEPARIN TWO HOURS POST XARELTO ADMINISTARTION.
--- NOTE | 2021-12-30 18:13 | NUR ---
PATIENT IS AWAKE,ALERT AND ORIENTED TIME THREE.DENIES PAIN.PATIENT HEPARIN DRIP WAS DISCONTINUE PER MD ORDERS, PATIENT WAS STARTED XARELTO PER MD ORDER. NO ACUTE DISTRESS NOTED. MOVEMENT AND SENSATION NOTED TO BLE.
--- NOTE | 2021-12-31 04:14 | NUR ---
TAYA SUMMARY ALERT AND ORIENTED ABLE TO VOICE NEEDS CALM MOOD JOHN ANY PAIN IN THIS SHIFT PICCLINE PATENT WITH POSITIVE BLOOD RETURN DRESSING DRY AND INTACT.CONT XARELTO THERAPY NO ACTIVE BLEEDING BLEEDING NOTED.
--- NOTE | 2021-12-31 18:38 | NUR ---
SHIFT SUMMARY: PT A/O X 4 ON STRICT BEDREST AT THIS TIME. PT PLEASANT AND COOPERATIVE WITH CARE. BS WELL MANAGED WITH CURRENT REGIMEN, WOUNDS TO FEET LEFT OPEN TO AIR, NO DRAINAGE OR S/S OF INFECTION NOTED. BLANKET SUPPORT IN PLACE. PHYSICAL THERAPY REQUESTS UPDATED MOBILITY ABILITY SINCE PT/OT WAS ORDERED.
--- NOTE | 2022-01-01 03:39 | NUR ---
SHIFT SUMMARY NO ACUTE CHANGE REPORTED IN THIS SHIFT CALM MOOD AND PLESANT SLEPT MOST OF THE NIGHT .
--- NOTE | 2022-01-01 07:47 | NUR ---
KHADAR hussein handoff of patient care from KHADAR Apodaca Patient was in bed asleep and did not appear to be in any distress
--- NOTE | 2022-01-01 18:32 | NUR ---
Patient was alert and orient, He spent time in bed. There are strict orders for non-weight bearing. PT/OT could not work with him today. RN did call provider to see if those strict weight bearing orders could be reviewed and/or lifted. Patient affect was flat and mood was congruent. He was compliant with medications. He c/o headache this morning and recvd Tylenol 650mg prn. His blood glucose was monitored and sliding scale was given accordingly. Continue to monitor this patient
--- NOTE | 2022-01-02 17:02 | NUR ---
Patient was alert and orient, his appetite was fair and he was compliant with medications. He had no complaints of pain and did not recv any PRNs. Patient sat up for dinner in the chair. His non weight bearing status order was discontinued and therapy will work with him tomorrow. Continue blood sugar checks as scheduled.
--- NOTE | 2022-01-03 04:05 | NUR ---
SUMMARY: PT A/OX4 AND CALLS APPROPRIATELY TO SPECIFY NEEDS. HE IS PLEASANT AND COOPERATIVE W/CARE BUT APPEARS SLIGHTLY WITHDRAWN W/A FLAT AFFECT. PT DENIED COMPLAINTS OTHER THEN REQUESTING MEDS FOR SLEEP AND PAIN, MELATONIN AND TYLENOL RECIEVED FOR GOOD AFFECT. 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 PT/OT NOW WORKING W/PT TO ENCOURAGE MOBILITY, HE WAS INITIALLY BEDREST S/P REVASC PROCEDURE. FUNEZ IS PATENT AND DRAINING TO GRAVITY BUT WILL DISCUSS IT'S REMOVAL W/DAY STAFF. NO ACUTE CHANGES, VSS/AFEBRILE. WCTM AND REPORT TO DAY RN.
--- NOTE | 2022-01-03 05:19 | NUR ---
TO THROW ANYTHING AWAY.
--- NOTE | 2022-01-03 18:19 | NUR ---
SHIFT SUMMARY PT UNMOTIVATED TO BE ACTIVE AND NEEDS PROMPTING TO BE MORE ACTIVE. FUNEZ REMOVED TODAY AND HASN'T HAD THE URGE TO VOID YET. FEET DUSKY NEAR THE TOES IN ADDITION TO FROSTBITTEN AREAS. SEEN EATING FREQUENTLY FROM SAVED BITS OF MEALS. WAITING FOR PLACEMENT.
--- NOTE | 2022-01-03 22:57 | NUR ---
PROTECTIVE EGG CRATE BOOTS TO FEET AT HS. TOES BOTH FEET COOL (NOT COLD THOUGH) 2+ DORSALIS PULSE RIGHT FOOT, 1+ POST TIB ON LEFT. PATIENT HAD NO COMPLAINTS OF PAIN IN EITHER FOOT AT TIME OF ASSESSMENT.
--- NOTE | 2022-01-04 03:20 | NUR ---
PATIENT AWAKE UNTIL ABOUT 2400 WATCHING TV. NO COMPLAINTS OF PAIN OR DISCOMFORT. NO CHANGE IN CONDITION OF FEET FROM PREVIOUS SHIFT. RIGHT FOOT SLIGHTLY WARMER WITH A 2+ DORSALIS PULSE. LEFT FOOT UNABLE TO PALPATE DORSALIS DUE TO THICK SCAB. POST TIB 1+. PATIENT SLOW TO RESPOND, BUT A&OX3 AND FOLLOWS COMMANDS. VOIDING CLEAR URINE INTO URINAL AT BEDSIDE
--- NOTE | 2022-01-04 17:40 | NUR ---
SHIFT SUMMARY PATIENT LAYING IN BED. PATIENT A&OX4. PATIENT WORKED WITH PT TODAY AND TRANSFERRED TO CHAIR FOR LUNCH. TOLERATED WELL. C/O PAIN OF BILATERAL FEET 05/26. MEDICATED PER JAN. NO SIGNIFICANT EVENTS T/O SHIFT. BED IN LOW POSITION WITH CALL LIGHT IN REACH. WILL CONTINUE TO MONITOR.
--- NOTE | 2022-01-05 04:48 | NUR ---
STRIP PRESSER SUMMARY PATIENT HAD A FAIR SHIFT. HIS ASSESSMENT DONE AND RECORDED. HIS VITALS WERE STABLE. NO COMPLAINTS OVERNIGHT. WILL CONTINUE TO MONITOR HIM.
--- NOTE | 2022-01-06 16:32 | NUR ---
AT AROUND 1600 PATIENT FOUND ON FLOOR OF BATHROOM COVERED IN HIS OWN FECES. DETERMINED THAT PT SOILED THE BED AND THEN CRAWLED THROUGH IT INTO THE BATHROOM. UNCLEAR IF A FALL OCCURED. PT UNABLE TO GET UP DO TO NOT BEING ABLE TO GET TRACTION SINCE HIS FEET WERE COVERED IN FECES. PT NORMALLY CALLS AND IS ABLE TO MAKE NEEDS KNOWN. PERIODIC MOMENTS OF CONFUSION AND ODD BEHAVIOR. PT CLEANED UP AND HELPED BACK INTO BED. CHARGE RNS NOTIFIED. BAR SUPERVISOR NOTIFIED PHYSICIAN AND FILLED OUT NEEDED DOCUMENTATION. PT PLACED IN YELLOW GOWN.
--- NOTE | 2022-01-06 17:10 | NUR ---
SHIFT SUMMARY PT STATUS POST REVASC FOR ODOM BITE TO FEET. PT IS WITHDRAWN AND HAS MOMENTS OF CONFUSION BUT IS OVERALL A/O X3. PT HAD INCIDENCT TODAY REGARDING CRAWLING TO THE BATHROOM (PLEASE SEE PREVIOUS NOTES). PT PLACED IN YELLOW GOWN AND ON BED ALARM. NO INJURIES RESULTED FROM INCIDENT. VSS. WILL REPORT TO ROBERT RUBALCAVA.
--- NOTE | 2022-01-07 03:08 | NUR ---
PHOTOGRAPHER PORTRAIT SUMMARY PATIENT HAD A FAIR SHIFT.VITALS CHECKED AND RECORDED.HE HAD HIS PRN MED FOR PAIN. WILL CONTINUE TO MONITOR HIM.
--- NOTE | 2022-01-07 14:58 | NUR ---
No acute changes. Pt alert and oriented 3-4, pleasent, cooperative, with flat affect; able to make needs known. Pt is room air. Pt is chairfast with limited supervision. Pt is taking pills whole in applesauce, no complications. PICC right arm, flusing well. Pt is eating meals at 100%, able to feed self. Pt uses urinal at bedside, no accidents today. Pt complained of tooth pain at 8/10, APAP 650 mg given, with good relief. Toes bilat and left foot black wounds, Pt stated "tingling" but no pain; no wound care orders. Daily education and encouragement given. Call-light within reach, bed in lowest position. Waiting for placement.
--- NOTE | 2022-01-08 02:59 | NUR ---
PATENT LEGAL ASSISTANT SUMMARY PATIENT HAD A FAIR SHIFT. HE DID NOT LODGE ANY COMPLAINT OVERNIGHT. ASSESSMENT AND V/S DONE AND RECORDED. HIS V/S ARE STABLE. WILL CONTINUE TO MONITOR HIM.
--- NOTE | 2022-01-09 05:12 | NUR ---
SHIFT SUMMARY PATIENT REMAIN CONFUSED AT TIME CALM MOOD IN THIS SHIFT SLEPT MOST OF THE NIGHT NO ACUTE CHANGES NOTED
--- NOTE | 2022-01-09 17:11 | NUR ---
pATIENT IS AWAKE,ALERT AND ORIENTED TIME TWO WITH EPISODE OF CONFUSION.DENIES PAIN. PATIENT ATE 100% OF MEAL. PATIENT WAITING ON PLACEMENT. NO ACUTE DISTRESS NOTED.
--- NOTE | 2022-01-10 07:15 | NUR ---
PT RESTING THIS MORNING, NO FURTHUR COMPLAINTS OF PAIN, SOB, OR N/V. PT CALL LIGHT WITHIN REACH, DISCUSSED WITH PT ABOUT SAFETY PRECAUTIONS.
--- NOTE | 2022-01-10 18:11 | NUR ---
PATIENT IS AWKE,ALERT AND ORIENTED TIMES THREE WITH EPISODE OF CONFUSION.DENIES PAIN. PATIENTHAD A BEDBATH TODAY. DENIES PAIN AND COMPLAINT.NO ACUTE DISTRESS NOTED. PATIENT PENING PLACEMENT.
--- NOTE | 2022-01-11 17:17 | NUR ---
PATIENT IS AWKE,ALERT AND ORIENTED TIMES THREE.DENIES PAIN. PATIENT WAITING ON PLACEMENT.
[2022-01-11 19:31] LABS: Mean Platelet Volume 9.4 fL (9.1-12.4); Platelet Count 364 K/mm3 (150-400)
[2022-01-11 19:50] LABS: International Normalized Ratio 1.25; Prothrombin Time Results 12.9 Sec (9.7-11.5)
--- NOTE | 2022-01-12 04:20 | NUR ---
SHIFT SUMMARY PT IS A 66 Y/O MALE, ADMITTED FOR NC. PT IS A&O X 2, 2PA OUT OF BED. PT HAS BLE NECROSIS, AWAITING POSSIBLE SURGICAL AMPUTATION. PT WAS MEDICATED FOR BLE PAIN WITH PRN TYLENOL. NO C/O NAUSEA OR SOB. PT STARTED ON IV HEPARIN DRIP AT 18 U/KG/HR OR 24.1 ML/HR. VITAL SIGNS STABLE. THIS AM, PT REFUSED BLOOD DRAW FOR LABS, VITAL SIGNS, AND MEDICATIONS. NO OTHER ACUTE CHANGES IN PT CONDITION NOTED DURING THE NIGHT. WILL CONTINUE TO MONITOR AND TREAT PER EMAR UNTIL HAND OFF TO DAY SHIFT RN.
[2022-01-12 09:41] LABS: BASOPHILS ABSOLUTE AUTO 0.04 K/mm3 (0.00-0.23); BASOPHILS PERCENT AUTO 0 % (0-2); EOSINOPHILS ABSOLUTE AUTO 0.16 K/mm3 (0.00-0.68); EOSINOPHILS PERCENT AUTO 2 % (0-6); Hematocrit 34.5 % (37.0-53.0); Hemoglobin 11.1 g/dL (13.5-17.5); IMMATURE GRAN ABSOLUTE AUTO 0.04 K/mm3 (0.00-0.10); IMMATURE GRAN PERCENT AUTO 0 % (0-1); LYMPHOCYTES ABSOLUTE AUTO 1.21 K/mm3 (0.84-5.20); LYMPHOCYTES PERCENT AUTO 12 % (21-46); MONOCYTES ABSOLUTE AUTO 0.67 K/mm3 (0.16-1.47); MONOCYTES PERCENT AUTO 7 % (4-13); Mean Corpuscular HGB 28.7 pg (26.0-34.0); Mean Corpuscular HGB Conc 32.2 g/dL (31.5-36.5); Mean Corpuscular Volume 89 fL (80-100); Mean Platelet Volume 9.7 fL (9.1-12.4); NEUTROPHILS ABSOLUTE AUTO 8.05 K/mm3 (1.96-9.15); NEUTROPHILS PERCENT AUTO 79 % (41-73); Platelet Count 389 K/mm3 (150-400); RDW Coefficient Variation 14.3 % (11.7-14.2); RDW Standard Deviation 46.3 fL (35.1-46.3); Red Blood Cell Count 3.87 M/mm3 (4.30-5.90); White Blood Cell Count 10.17 K/mm3 (4.00-11.30)
[2022-01-12 09:52] LABS: Anion Gap 8 mmol/L (6-16); Blood Urea Nitrogen 24 mg/dL (8-24); CO2, Blood 28 mmol/L (21-32); Calcium, Blood 9.1 mg/dL (8.5-10.1); Chloride, Blood 99 mmol/L (98-108); Creatinine, Blood 0.65 mg/dL (0.60-1.20); Glomerular Filtration Rate >60 (60-); Glucose, Blood 234 mg/dL (70-99); Potassium, Blood 3.9 mmol/L (3.5-5.5); Sodium, Blood 135 mmol/L (136-145)
--- NOTE | 2022-01-12 16:56 | NUR ---
SHIFT SUMMARY PATIENT IS ALERT AND ORIENTED X3, PLEASANT AND COOPERATIVE WITH CARE. THE PATIENT WAS MEDICATED FOR PAIN X1 THIS SHIFT. INSULIN GIVEN PER SLIDING SCALE X2. HEPARIN DRIP CURRENTLY RUNNING AT 21UNITS/KG/HR @ 28.1MLS/HR. THE PATIENT HAD A BED BATH THIS SHIFT. VSS. NO ACUTE CHANGES THIS SHIFT. THIS NURSE WILL CONTINUE TO CARE FOR THE PATIENT UNTIL SHIFT REPORT IS GIVEN TO ONCOMING NURSE.
--- NOTE | 2022-01-13 04:55 | NUR ---
PT IS RESTING. NO ACUTE EVENTS OVER NIGHT, DID COMPLAIN OF PAIN IN THE BILAT FEET AREA, TYLENOL GIVEN. CALL LIGHT AND PERSONAL BELONGINGS WITHIN REACH.
--- NOTE | 2022-01-13 18:27 | NUR ---
SHIFT SUMMARY PATIENT IS ALERT AND ORIENTED X2-3, PLEASANT AND COOPERATIVE WITH CARE. CRITICAL LAB APTT 112.9 REPORTED TO FIRE WATCHER KATIE. HEPARIN DRIP DOSE ADJUSTED PER PHARMACY.24 U/KG/HR 32.2ML/HR INFUSING CURRENTLY. PATIENT MEDICATED X1 FOR PAIN THIS SHIFT. INSULIN GIVEN FOR COVERAGE X2 AND TID INSULIN DOSE WELL. NO ACUTE CHANGES. VSS. CALL LIGHT WITHIN REACH.
--- NOTE | 2022-01-14 04:59 | NUR ---
SHIFT SUMMARY PATIENT AOX1 ABLE TO VOICE NEEDS C/O HEADACHE TYLENOL PRN ADM WITH RELIEF.PT CONT HEPARIN DRIP APTT 98.3 NO NEW ORDERS CONT WITH SAME RATE.PT SCHEDUEL FOR PROCEDURE TODAY PER REPORT.NO ACUTE CHANGE IN THIS SHIFT
--- NOTE | 2022-01-14 05:43 | NUR ---
HEPARIN DRIP CRITICAL LABS AT 0529 APTT 112.1 PHAMARCY MADE AWARE NEW ORDER DECREASE DOSE TO 23UNITS/KG/HR OR 30.8ML/HR.DOSE DECREASE CROSS CHECKED WITH JULIANO RUBALCAVA.
--- NOTE | 2022-01-14 08:30 | NUR ---
Pt laying in bed awake, watching tv, cooperative with care, follows commands well, denies pain at this time, lungs are clear t/o, on r/a, resp even and unlabored, no cough noted, hrr, incont of urine and stool, attends in place, skin has wounds to b/l feet, pending surg on friday, skin otherwise very dry, jaret, is a one person assist to chair, alphonso, call light in reach.
[2022-01-14 09:09] LABS: BASOPHILS ABSOLUTE AUTO 0.05 K/mm3 (0.00-0.23); BASOPHILS PERCENT AUTO 1 % (0-2); EOSINOPHILS ABSOLUTE AUTO 0.24 K/mm3 (0.00-0.68); EOSINOPHILS PERCENT AUTO 3 % (0-6); Hematocrit 32.8 % (37.0-53.0); Hemoglobin 10.6 g/dL (13.5-17.5); IMMATURE GRAN ABSOLUTE AUTO 0.04 K/mm3 (0.00-0.10); IMMATURE GRAN PERCENT AUTO 0 % (0-1); LYMPHOCYTES ABSOLUTE AUTO 1.39 K/mm3 (0.84-5.20); LYMPHOCYTES PERCENT AUTO 15 % (21-46); MONOCYTES ABSOLUTE AUTO 0.68 K/mm3 (0.16-1.47); MONOCYTES PERCENT AUTO 7 % (4-13); Mean Corpuscular HGB 29.1 pg (26.0-34.0); Mean Corpuscular HGB Conc 32.3 g/dL (31.5-36.5); Mean Corpuscular Volume 90 fL (80-100); Mean Platelet Volume 9.5 fL (9.1-12.4); NEUTROPHILS PERCENT AUTO 74 % (41-73); Platelet Count 379 K/mm3 (150-400); RDW Coefficient Variation 14.1 % (11.7-14.2); RDW Standard Deviation 46.6 fL (35.1-46.3); Red Blood Cell Count 3.64 M/mm3 (4.30-5.90)
[2022-01-14 09:35] LABS: Anion Gap 4 mmol/L (6-16); Blood Urea Nitrogen 14 mg/dL (8-24); Bun/Creatinine Ratio 24.8 (12.0-20.0); CO2, Blood 29 mmol/L (21-32); Calcium, Blood 9.1 mg/dL (8.5-10.1); Chloride, Blood 100 mmol/L (98-108); Creatinine, Blood 0.56 mg/dL (0.60-1.20); Glomerular Filtration Rate >60 (60-); Glucose, Blood 156 mg/dL (70-99); Potassium, Blood 3.9 mmol/L (3.5-5.5); Sodium, Blood 133 mmol/L (136-145)
--- NOTE | 2022-01-14 16:10 | NUR ---
Patient was a [facility] patient who was transferred to [facility] on 12/18/2021 due to [facility]NC. Patient's recertification came due during patient's admission. As such patient will require a new home health face to face. No further interventions required. Eleanor Wagner Referral Liaison
--- NOTE | 2022-01-14 18:14 | NUR ---
pt had an uneventful day, had a bed bath this am, no acute changes, ortho was consulted about his foot, will be npo after mid for possible surg in am, call light in reach.
--- NOTE | 2022-01-15 05:00 | NUR ---
PT IS AWAKE THIS MORNING. PT IS RESTLESS, DID NOT GET ANY SLEEP LAST NIGHT DUE TO THINKING HE NEEDED A RIDE TO THE HOSPITAL FOR HIS PROCEDURE. PT ATTEMPTED TO GET OUT OF BED A COUPLE OF TIMES. REORIENTED THE PT EACH TIME AND THE PT WAS COOPERATIVE. PT IS CURRENTLY NPO FOR POSSIBLE PROCEDURE TODAY. CALLED THE MD YESTERDAY TO CLARIFY IF HEPARIN SHOULD BE RUNNING BEFORE SURGERY, PER MD ITS FINE TO KEEP RUNNING TILL THEY SURGICAL TEAM COME GETS THE PT. OTHERWISE NO ACUTE EVENTS HAPPENED OVERNIGHT. PT DID NOT C/O SOB, PAIN, N/V. PT BELONGINGS AND CALL LIGHT WITHIN REACH. BED ALARM ARMED.
--- NOTE | 2022-01-15 13:21 | NUR ---
CHARTING A ASSOCIATE MEDICAL DIRECTOR 2 STUDENT.
--- NOTE | 2022-01-15 17:55 | NUR ---
SHIFT SUMMARY PT AxOx2-3. SOME IRRITABLE/AGGRESSIVE BEHAVIOR NOTED TODAY WITH STAFF. PT IS VERY UNSTEADY ON FEET, BUT TRIES TO GET UP AND AROUND HIMSELF. TRANSFERS SHOULD BE 2 ASSIST WITH GB AND FWW. PT WAS EXPECTED TO GO FOR L BKA TODAY WITH DR PIKE, BUT WAS CANCELLED D/T OVERBOOKED SCHEDULE. CURRENT PLAN IS TO HAVE L BKA TOMORROW. HEPARIN DOSE VERIFIED AT SHIFT CHANGE WITH NOC NURSEPERFECTO AT 23.5 U/KG/HR OR 31.5ML/HR. PHARM TITRATED DOSE TO 23U/KG/HR OR 30.8ML/HR AFTER CRITICAL PTT RECIEVED OF 101.1. PT CURRENTLY EATING DINNER IN CHAIR. PT AWARE HE WILL BE NPO AT MIDNIGHT FOR EXPECTED SURGERY TOMORROW. BED/CHAIR ALARM ON FOR IMPULSIVITY. CALL LIGHT IN REACH.
--- NOTE | 2022-01-16 05:48 | NUR ---
SHIFT SUMMARY ALERT X'S 3 WITH CONFUSION AT NIGHT. IRRITABLE AND AGGRESSIVE BEHAVIOR, PULLED IV APART. IMPULSIVE TRYING TO CLIMB OOB, WAS ABLE TO REDIRECT PATIENT. HEPARIN DRIP INFUSING, NO CHANGE IN DOSE. NPO AFTER 12AM. SAFETY MAINTAINED, CALL SERRANO IN REACH.
[2022-01-16 12:43] LABS: SARS-Cov-2 (COVID-19) PCR, MMC POSITIVE (NEGATIVE)
--- NOTE | 2022-01-16 12:46 | NUR ---
PT TO DAY SURG @ THIS TIME PT IS BEING TRANSPORTED TO DAY SURG @ THIS TIME VIA HOSPITAL BED, PLAN ON L BKA.
--- NOTE | 2022-01-16 13:00 | NUR ---
STARTED ADMISSION IN ROOM PATIENT NOT IN ISOLATION ON FLOOR AND WAS POSITIVE BEGINNING OF . HENCE BROUGHT PATIENT TO [facility].
--- NOTE | 2022-01-16 15:12 | NUR ---
01/16/22 1512 Odette White PATIENT RECEIVING CHEMICAL VENOUS THROMBIS PROPHYLAXIS ON THE FLOOR, STOPPED IN LIEU OF SURGERY.
--- NOTE | 2022-01-16 16:43 | NUR ---
RECIEVED REPORT VIA PACU @ THIS TIME, WAITING PT ARRIVAL
--- NOTE | 2022-01-16 17:07 | NUR ---
PT ARRIVED BACK TO UNIT PT APPEARS RESTLESS AND FIDGITING. PT EYES CLOSED, BUT MOVES MOUTH IF TALKING. FLAILING ARMS AND LEGS RANDOMLY. WILL CONT. TO MONITOR MENTATION, VSS. LUNGS SOUND COURSE. LR RUNNING GRAVITY BAG.
--- NOTE | 2022-01-16 18:32 | NUR ---
SHIFT SUMMARY PT A&O X4 PRE OP, PT IN PLEASENT MOOD, THOUGH DID APPEAR ANXIOUS IN AM HOURS. PT POD 0 L BKA. PT APPEARED DISORIENTATED, UNABLE TO FOLLOW COMMANDS/DIRECTION UPON ARRIVAL BACK TO UNIT, SEE NOTE. DR. MARTINI, NARCAN ORDERED AND 0.4 NARCAN ADMINISTERED W/ POSITIVE OUTCOME. @ THIS TIME PT APPEARS RESTLESS, ABLE TO OPEN EYES, VOCAL, VSS, ORIENTATED TO SELF, SPOUSE, PLACE, AND . PT IS REPORTING THAT HE CURRENTLY SEES A BIRD IN HIS ROOM, PLAN TO CONTINUE TO MONITOR MENTATION FOR S/S OF CHANGE. GUAZE AND STUMP SOCK IN PLACE, CDI. CALL LIGHT W/IN REACH. BED ALARM IN PLACE. LR @ 50.
--- NOTE | 2022-01-17 04:40 | NUR ---
SHIFT ALERT X'S 4, GETS FORGETFUL AND CONFUSED. VERY IRRITABLE, CALLING STAFF NAMES AND ATTEMPTING TO HIT STAFF. HALLUCINATING THROUGH NIGHT, APPEARED IF HE WAS PULLING SOMETHING FROM THE AIR. REFUSED AM VITAL SIGNS. DRESSING C/D/I TO LLE. SAFETY MEASURES MAINTAINED, CALL SERRANO IN REACH.
[2022-01-17 09:27] LABS: BASOPHILS ABSOLUTE AUTO 0.02 K/mm3 (0.00-0.23); BASOPHILS PERCENT AUTO 0 % (0-2); EOSINOPHILS ABSOLUTE AUTO 0.04 K/mm3 (0.00-0.68); EOSINOPHILS PERCENT AUTO 0 % (0-6); Hematocrit 19.5 % (37.0-53.0); Hemoglobin 6.4 g/dL (13.5-17.5); IMMATURE GRAN ABSOLUTE AUTO 0.03 K/mm3 (0.00-0.10); IMMATURE GRAN PERCENT AUTO 0 % (0-1); LYMPHOCYTES ABSOLUTE AUTO 1.51 K/mm3 (0.84-5.20); LYMPHOCYTES PERCENT AUTO 15 % (21-46); MONOCYTES ABSOLUTE AUTO 0.84 K/mm3 (0.16-1.47); MONOCYTES PERCENT AUTO 9 % (4-13); Mean Corpuscular HGB 29.4 pg (26.0-34.0); Mean Corpuscular HGB Conc 32.8 g/dL (31.5-36.5); Mean Corpuscular Volume 89 fL (80-100); Mean Platelet Volume 9.4 fL (9.1-12.4); NEUTROPHILS ABSOLUTE AUTO 7.48 K/mm3 (1.96-9.15); NEUTROPHILS PERCENT AUTO 75 % (41-73); Platelet Count 258 K/mm3 (150-400); RDW Coefficient Variation 14.5 % (11.7-14.2); RDW Standard Deviation 47.2 fL (35.1-46.3); Red Blood Cell Count 2.18 M/mm3 (4.30-5.90); White Blood Cell Count 9.92 K/mm3 (4.00-11.30)
[2022-01-17 09:46] LABS: Anion Gap 7 mmol/L (6-16); Blood Urea Nitrogen 15 mg/dL (8-24); CO2, Blood 29 mmol/L (21-32); Calcium, Blood 8.6 mg/dL (8.5-10.1); Chloride, Blood 101 mmol/L (98-108); Creatinine, Blood 0.68 mg/dL (0.60-1.20); Glomerular Filtration Rate >60 (60-); Glucose, Blood 114 mg/dL (70-99); Potassium, Blood 3.7 mmol/L (3.5-5.5); Sodium, Blood 137 mmol/L (136-145)
[2022-01-17 17:16] LABS: Hematocrit 18.2 % (37.0-53.0)
[2022-01-17 17:24] LABS: Hemoglobin 5.9 g/dL (13.5-17.5)
--- NOTE | 2022-01-17 17:26 | NUR ---
LAB RESULTS CRIT LOW HGB 5.9 REPORTED BY LAB @ THIS TIME. CALLED, MESSAGE LEFT- WAITING FOR CALLBACK @ THIS TIME
--- NOTE | 2022-01-17 18:03 | NUR ---
SHIFT SUMMARY PT A&O X4 AND IN PLEASENT MOOD T/O SHIFT. PT MEDICATED PER EMAR FOR PAIN. LLE ELEVATED ON PILLOW. PT TOLERATING PO INTAKE. LR FINISHED, SL PER DR. MENDOZA ORDERS. CHINO WRAP AND STUMP SOCK IN PLACE C/D/I. PLAN TO GO BACK TO [place], NPO @ 0000. CRITICAL LAB CALLED, DR. MENDOZA NOTIFIED. 2 UNITS PBC ORDERED, WAITING ARRIVAL FOR ADMINISTRATION. PT APPEARS DROWSY, MINIMALLY PALE, OTHERWISE ASYMPTOMATIC. VSS. CALL LIGHT W/IN REACH.
[2022-01-18 00:42] LABS: Hematocrit 25.4 % (37.0-53.0); Hemoglobin 8.6 g/dL (13.5-17.5)
--- NOTE | 2022-01-18 04:51 | NUR ---
ALERT AND ORIENENTED X'S 4. TOLERATED 2U PRBC'S WELL. MEDICATED WITH HYDROCODONE AND TORADOL DUE TO LLE PAIN, VOICED RELIEF. SLEPT WELL THROUGH NIGHT. DRESSING INTACT TO LEFT KNEE STUMP. NPO AFTER 12AM. SAFETY MAINTAINED, CALL SERRANO IN REACH.
[2022-01-18 05:13] LABS: BASOPHILS ABSOLUTE AUTO 0.02 K/mm3 (0.00-0.23); BASOPHILS PERCENT AUTO 0 % (0-2); EOSINOPHILS ABSOLUTE AUTO 0.12 K/mm3 (0.00-0.68); EOSINOPHILS PERCENT AUTO 1 % (0-6); Hematocrit 26.6 % (37.0-53.0); IMMATURE GRAN ABSOLUTE AUTO 0.04 K/mm3 (0.00-0.10); IMMATURE GRAN PERCENT AUTO 0 % (0-1); LYMPHOCYTES ABSOLUTE AUTO 1.33 K/mm3 (0.84-5.20); LYMPHOCYTES PERCENT AUTO 12 % (21-46); MONOCYTES ABSOLUTE AUTO 1.02 K/mm3 (0.16-1.47); MONOCYTES PERCENT AUTO 9 % (4-13); Mean Corpuscular HGB 30.3 pg (26.0-34.0); Mean Corpuscular HGB Conc 33.8 g/dL (31.5-36.5); Mean Corpuscular Volume 90 fL (80-100); Mean Platelet Volume 9.7 fL (9.1-12.4); NEUTROPHILS ABSOLUTE AUTO 8.96 K/mm3 (1.96-9.15); NEUTROPHILS PERCENT AUTO 78 % (41-73); Platelet Count 248 K/mm3 (150-400); RDW Coefficient Variation 14.6 % (11.7-14.2); RDW Standard Deviation 46.5 fL (35.1-46.3); Red Blood Cell Count 2.97 M/mm3 (4.30-5.90); White Blood Cell Count 11.49 K/mm3 (4.00-11.30)
[2022-01-18 07:36] LABS: Anion Gap 5 mmol/L (6-16); Blood Urea Nitrogen 17 mg/dL (8-24); CO2, Blood 29 mmol/L (21-32); Calcium, Blood 8.3 mg/dL (8.5-10.1); Chloride, Blood 101 mmol/L (98-108); Creatinine, Blood 0.81 mg/dL (0.60-1.20); Glomerular Filtration Rate >60 (60-); Glucose, Blood 144 mg/dL (70-99); Potassium, Blood 4.1 mmol/L (3.5-5.5); Sodium, Blood 135 mmol/L (136-145)
--- NOTE | 2022-01-18 07:41 | NUR ---
PATIENT WAS BROUGHT TO DAY SURGERY FOR HIS PROCEDURE.
[2022-01-19 04:56] LABS: BASOPHILS ABSOLUTE AUTO 0.01 K/mm3 (0.00-0.23); BASOPHILS PERCENT AUTO 0 % (0-2); EOSINOPHILS PERCENT AUTO 0 % (0-6); Hematocrit 25.7 % (37.0-53.0); Hemoglobin 8.7 g/dL (13.5-17.5); IMMATURE GRAN ABSOLUTE AUTO 0.06 K/mm3 (0.00-0.10); IMMATURE GRAN PERCENT AUTO 1 % (0-1); LYMPHOCYTES ABSOLUTE AUTO 1.32 K/mm3 (0.84-5.20); LYMPHOCYTES PERCENT AUTO 11 % (21-46); MONOCYTES ABSOLUTE AUTO 0.95 K/mm3 (0.16-1.47); MONOCYTES PERCENT AUTO 8 % (4-13); Mean Corpuscular HGB Conc 33.9 g/dL (31.5-36.5); Mean Corpuscular Volume 89 fL (80-100); Mean Platelet Volume 10.1 fL (9.1-12.4); NEUTROPHILS ABSOLUTE AUTO 10.11 K/mm3 (1.96-9.15); NEUTROPHILS PERCENT AUTO 81 % (41-73); Platelet Count 286 K/mm3 (150-400); RDW Coefficient Variation 14.4 % (11.7-14.2); RDW Standard Deviation 45.7 fL (35.1-46.3); White Blood Cell Count 12.45 K/mm3 (4.00-11.30)
[2022-01-19 05:12] LABS: Anion Gap 4 mmol/L (6-16); Blood Urea Nitrogen 19 mg/dL (8-24); Bun/Creatinine Ratio 28.3 (12.0-20.0); CO2, Blood 30 mmol/L (21-32); Calcium, Blood 8.8 mg/dL (8.5-10.1); Chloride, Blood 100 mmol/L (98-108); Creatinine, Blood 0.67 mg/dL (0.60-1.20); Glomerular Filtration Rate >60 (60-); Glucose, Blood 253 mg/dL (70-99); Potassium, Blood 4.2 mmol/L (3.5-5.5); Sodium, Blood 134 mmol/L (136-145)
--- NOTE | 2022-01-19 08:00 | NUR ---
SHIFT SUMMARY PT A/O X4, DRSG D/I TO LEFT BKA AND PT C/O PAIN TO THAT SITE AND WAS MEDICATED X2 THIS SHIFT WITH TYLENOL AND NORCO X1 TAB, MEDS WERE EFFECTIVE, DRSG D/I TO RT. FOOT. BS AC/HS WITH 2100 BS 296 AND PT ASYMPTOMATIC. NO ACUTE DISTRESS .
--- NOTE | 2022-01-19 18:32 | NUR ---
PATIENT RESTING COMFORTABLY AFTER BEING MEDICATED FOR PAIN PER EMR. DENIES 0/10 PAIN AT THE MOMENT NOW. CALL LIGHT PLACED WITHIN REACH AND BED IN LOWEST POSITION.
--- NOTE | 2022-01-20 05:47 | NUR ---
Alert and oriented x's 4. Medicated with toradol 30mg due to BLE pain, effective relief. Respirations even and unlabored. Slept well through night. Dressings intact to BLE's. safet maintained, call fuchs in reach.
[2022-01-20 16:22] LABS: Hematocrit 26.3 % (37.0-53.0); Hemoglobin 8.6 g/dL (13.5-17.5)
--- NOTE | 2022-01-20 18:12 | NUR ---
SHIFT SUMMARY PT AxOx4 WITH OCCASIONAL CONFUSION. PT COOPERATIVE WITH CARE. OCCASIONALLY AGITATED WHEN CONFUSED, BUT REDIRECTABLE. PT REPORTED PAIN IN BLE THIS SHIFT, MEDICATED PER EMAR WITH REPORTED RELIEF. PT DRESSINGS ON BOTH L BKA AND R FOOT/TOES AMP C/D/I. WOUND CARE ORDERS UNCLEAR. WILL PASS REQUEST FOR SURGEON TO UPDATE ORDERS THE NEXT DAY SHIFT. PT STATED THE SURGEONS TOLD HIM THEY WOULD PERFORM NEXT WOUND CARE. PT CURRENTLY RESTING IN BED WITH CALL LIGHT IN REACH. VITALS REVIEWED. DENIES ANY NEEDS AT THIS TIME.
[2022-01-21 08:01] LABS: Hematocrit 27.2 % (37.0-53.0); Hemoglobin 8.9 g/dL (13.5-17.5)
--- NOTE | 2022-01-21 17:28 | NUR ---
SHIFT SUMMARY- PT IS ALERT, PLESANT AND COOPERATIE. DRESSINGS WERE CHANGED BY SURGON THIS SHIFT. HE IS EATING AND DRINKING WELL. HIS BED IS IN THE LOW POSITION AND CALL LIGHT IS IN PLACE
--- NOTE | 2022-01-22 05:31 | NUR ---
SHIFT SUMMARY ALERT AND ORIENTED X'S 4. MEDICATED WITH NORCO DUE TO BLE PAIN, EFFECTIVE RELIEF. RESPIRATIONS EVEN AND UNLABORED,NO ACUTE DISTRESS NOTED. SLEPT WELL THROUGH NIGHT. VOIDS IN URINAL. BED ALARM ON, CALL SERRANO IN REACH.
--- NOTE | 2022-01-22 17:46 | NUR ---
PATIENT A&OX3 WITH SOME CONFUSED CONVERSATION BUT REDIRECTABLE. UP IN CHAIR EATING DINNER. PATIENT MEDICATED WITH NORCO PER EMR. CALL LIGHT PLACED WITHIN REACH AND CHAIR ALARM ON.
--- NOTE | 2022-01-23 05:16 | NUR ---
ALERT X'S 4. IMPULSIVE THROUGH NIGHT, ATTEMPTING TO TRY AND GET OOB. HALLUCINATING ASKING STAFF TO GET HIS CIGARETTS OFF THE COUNTER AND STATED I JUST SEEN YOU SMOKING ONE. ABLE TO REDIRECT PATIENT BUT IN THE PROCESS HE TOLD STAFF TO FCK OFF. CURRENTLY IN BED CONSTANTLY ADJUSTING BED TO 90 DEGREES AND THEN PLACING IT FLAT AND ALSO INTERMITTENTLY THROUGH NIGHT. SAFETY MEASURES IN PLACE, CALL SERRANO IN REACH.
--- NOTE | 2022-01-23 14:58 | NUR ---
PT TRANSFERRED FROM [facility], REPORT RECIEVED, PT PLACED ON CAMERA, BED ALARM SET
--- NOTE | 2022-01-23 17:23 | NUR ---
SUMMARY PT SITTING UP IN BED EATING SNACKS, PT HAS BEEN COOPERATIVE WITH CARE, MED PER EMAR FOR PAIN WITH GOOD RESULTS, DENIES ANY NAUSEA, VSS, WILL CONTINUE TO MONITOR
--- NOTE | 2022-01-24 06:03 | NUR ---
Rn summary: Patient is alert to self. He gets frustrated with any questions or cares. Patient has been restless in bed most of night. Medicated x2 with [place] for pain with some relief. Patient has drsg to L lower leg which is CDI, and lenora wrap and bandage to R foot post amputation procedures. Coccyx area is redened and mepilex was applied. Bed alarm is on, patient is on camera. Call light in reach. Close monitoring.
--- NOTE | 2022-01-24 19:56 | NUR ---
SHIFT SUMMARY PT AXO THIS MORNING THOUGH HALLUCINATING AND CONFUSION INCREASING TOWARDS END OF SHIFT. IRRITABLE THOUGH REDIRECTABLE. CBG ACHS, MEDICATED PER EMAR. PT NOT EFFICIENT AT FEEDING SELF, SUPERVISION WITH FOOD SUGGESTED TO RIGHT OF WAY MAINTENANCE SUPERVISOR NURSE. DR THOMSON IN TO REPLACE DRESSING/ ASSESS R FOOT. NEW WOUND CARE ORDERS PLACED. DR MENA NOTIFIED OF INCREASING PATIENT AGGITATION, MEDICATION ORDERED PRN, SEE ORDERS. PT MEDICATED FOR PAIN PER EMAR. NO IV IN PLACE. MEPILEX TO COCCYX. BED IN LOW POSITION, BED ALARM ON, CALL LIGHT WITHIN REACH.
--- NOTE | 2022-01-25 03:38 | NUR ---
SHIFT SUMMARY: PT REMAINS RESTLESS THROUGHOUT THIS SHIFT. AGITATION IMPROVED POST ADMINISTRATION ZYPREXA. PT ABLE TO REPOSITION SELF IN BED. CONTINUES TO BE CONFUSED AND PRESENTING WITH VISUAL AND POSSIBLE AUDITORY HALLUCINATIONS. INCONTINENET, COCCYX MEPILEX INTACT. CAMERA MONITORING REMAINED IN PLACE, BED ALARM ACTIVATED, PERSONAL ITEMS IN REACH
--- NOTE | 2022-01-25 04:16 | NUR ---
NURSE NOTE: : (SATPR) INFORMED OF PATIENTS CONTINUED RESTLESSNESS, CONFUSION AND CONTINUED HALLUCINATIONS, AGITATION AND COMBATIVENESS WITH STAFF INTERACTION PT HAS BEEN UNABLE TO SLEEP THROUGHOUT SHIFT. MD GAVE TELEPHONE ORDER TO ADMINISTER ADDITIONAL ONE TIME DOSE 5MG ZYPREXA NOW
[2022-01-25 11:12] LABS: BASOPHILS ABSOLUTE AUTO 0.03 K/mm3 (0.00-0.23); BASOPHILS PERCENT AUTO 0 % (0-2); EOSINOPHILS ABSOLUTE AUTO 0.08 K/mm3 (0.00-0.68); EOSINOPHILS PERCENT AUTO 1 % (0-6); Hematocrit 29.6 % (37.0-53.0); Hemoglobin 9.6 g/dL (13.5-17.5); IMMATURE GRAN ABSOLUTE AUTO 0.04 K/mm3 (0.00-0.10); IMMATURE GRAN PERCENT AUTO 0 % (0-1); LYMPHOCYTES ABSOLUTE AUTO 1.39 K/mm3 (0.84-5.20); LYMPHOCYTES PERCENT AUTO 11 % (21-46); MONOCYTES ABSOLUTE AUTO 0.89 K/mm3 (0.16-1.47); MONOCYTES PERCENT AUTO 7 % (4-13); Mean Corpuscular HGB 29.7 pg (26.0-34.0); Mean Corpuscular HGB Conc 32.4 g/dL (31.5-36.5); Mean Corpuscular Volume 92 fL (80-100); Mean Platelet Volume 9.1 fL (9.1-12.4); NEUTROPHILS ABSOLUTE AUTO 10.81 K/mm3 (1.96-9.15); NEUTROPHILS PERCENT AUTO 82 % (41-73); Platelet Count 509 K/mm3 (150-400); RDW Coefficient Variation 15.1 % (11.7-14.2); RDW Standard Deviation 50.4 fL (35.1-46.3); Red Blood Cell Count 3.23 M/mm3 (4.30-5.90); White Blood Cell Count 13.24 K/mm3 (4.00-11.30)
[2022-01-25 11:14] LABS: Anion Gap 7 mmol/L (6-16); Blood Urea Nitrogen 22 mg/dL (8-24); Bun/Creatinine Ratio 32.8 (12.0-20.0); CO2, Blood 27 mmol/L (21-32); Calcium, Blood 9.3 mg/dL (8.5-10.1); Chloride, Blood 106 mmol/L (98-108); Creatinine, Blood 0.67 mg/dL (0.60-1.20); Glomerular Filtration Rate >60 (60-); Glucose, Blood 145 mg/dL (70-99); Potassium, Blood 3.6 mmol/L (3.5-5.5); Sodium, Blood 140 mmol/L (136-145)
[2022-01-25 11:18] LABS: Source, Urine Straight Cath
[2022-01-25 11:23] LABS: Appearance, Urine Clear (Clear); Bilirubin, Urine Neg (Neg); Blood, Urine Neg (Neg); Color, Urine Yellow (P-Yellow); Glucose Qualitative, Urine Neg (Neg); Ketones, Urine Neg (Neg); Leukocyte Esterase, Urine Neg (Neg); Nitrite, Urine Neg (Neg); Protein, Urine Neg (Neg); Specific Gravity, Urine 1.015 (1.003-1.022); Urobilinogen, Urine NORM (Normal)
--- NOTE | 2022-01-25 18:07 | NUR ---
SHIFT SUMMARY PATIENT MEDICATED FOR PAIN X1. PATIENT DENIES NAUSEA AND SHORTNESS OF BREATH. PATIENT WAS VERY AGGITATED THIS MORNING. PATIENT WAS HITTING AND KICKING STAFF. PATIENT WAS CUSSING AT STAFF. PATIENT ATTEMPTING TO GET OUT OF BED MULTIPLE TIMES. PATIENT INCOHERENTLY MUMBLING. PATIENT A&O TO SELF. PATIENT REFUSING MEDICATIONS AND FOOD. NEW ORDERS FOR ASIA VEST. PATIENT BLADDER SCANNED, OVER 700 IN LBADDER. STRAIGHT CATHED WITH 740ML OUTPUT. PATIENT SLEPT TILL AFTERNOON. PATIENT LESS AGGITATED THIS AFTERNOON, MORE COOPERATIVE. STILL VERY CONFUSED AND NOT FOLLOWING DIRECTIONS. STILL TRYING TO CLIMB OUT OF BED. BLADDER SCAN AT 1730 SHOWED 385ML. ATTEMPTED TO ASSIST PATIENT WITH DINNER AND PATIENT BECAME AGGITATED, CUSSING AND SWINGING AT STAFF.
--- NOTE | 2022-01-25 23:13 | NUR ---
NURSE NOTE: KATH ROSENBERG CONTACTED 2300- INFORMED PT IS CURRENTLY DROWSY/LETHARGIC INCREASED DIFFICULTY FOLLOW COMMANDS MAKING HIM ASPIRATION RISK- HELD PO SCHEDULED MEDS. -PT REMAINS CONFUSED/HALLUCINATIONS WHEN AWOKEN/AROUSED -PT RETAINING URINE, CURRENTLY 558> ML IN BLADDER DUE TO 2 PREVIOUS IN AND OUT CATHETERIZATIONS TO DRAIN BLADDER APPROVED TO PLACE FUNEZ CATH AT THIS TIME. -UPDATED PT HAVING LOW GRADE TEMP 99.8 WILL CONTINUE TO MONITOR. -PT HAVING DECREASED INTAKE OF FOOD AND WATER DUE TO CURRENT LETHARGY, APPROVED TO HOLD SCHEDULED LONG ACTING INSULIN FOR 2100 DOSE.
--- NOTE | 2022-01-26 03:54 | NUR ---
SHIFT SUMMARY: ASIA RESTRAINT VEST DISCONTINUED AT 0000 DUE TO PATIENT REMAINING CALM, COOPERATIVE, NO ATTEMPTS TO GET OUT OF BED. PT DOES CONTINUE TO BECOME AGITATED WHEN AWOKEN OR PREFORMING NURSING INTERVENTIONS, QUICKLY RESUMES A CALM STATE WHEN INTERVENTIONS COMPLETED. PO MEDS HELD DURING THIS SHIFT DUE TO INCREASED LETHARGY AND DIFFICULTY DIRECTING. PT APPEARS TO CONTINUE HAVING AUDITORY & VISUAL HALLUCINATIONS WHEN AWAKE, YET WHEN ASKED SPECIFIC ORIENTATION QUESTIONS PT IS ABLE TO ANSWER EVERYTHING APPROPRIATELY EXCEPT FOR TIME AND DATE FUNEZ CATHETER PLACED DUE TO CONTINUED URINARY RETENTION. 14FR TOLERATED INSERTION WELL.
[2022-01-26 05:49] LABS: BASOPHILS ABSOLUTE AUTO 0.03 K/mm3 (0.00-0.23); BASOPHILS PERCENT AUTO 0 % (0-2); EOSINOPHILS ABSOLUTE AUTO 0.06 K/mm3 (0.00-0.68); EOSINOPHILS PERCENT AUTO 0 % (0-6); Hematocrit 31.4 % (37.0-53.0); IMMATURE GRAN ABSOLUTE AUTO 0.04 K/mm3 (0.00-0.10); IMMATURE GRAN PERCENT AUTO 0 % (0-1); LYMPHOCYTES ABSOLUTE AUTO 1.39 K/mm3 (0.84-5.20); LYMPHOCYTES PERCENT AUTO 10 % (21-46); MONOCYTES ABSOLUTE AUTO 0.95 K/mm3 (0.16-1.47); MONOCYTES PERCENT AUTO 7 % (4-13); Mean Corpuscular HGB 29.2 pg (26.0-34.0); Mean Corpuscular HGB Conc 31.8 g/dL (31.5-36.5); Mean Corpuscular Volume 92 fL (80-100); Mean Platelet Volume 9.2 fL (9.1-12.4); NEUTROPHILS PERCENT AUTO 82 % (41-73); Platelet Count 523 K/mm3 (150-400); RDW Standard Deviation 50.4 fL (35.1-46.3); Red Blood Cell Count 3.42 M/mm3 (4.30-5.90); White Blood Cell Count 13.77 K/mm3 (4.00-11.30)
--- NOTE | 2022-01-26 17:47 | NUR ---
SHIFT SUMMARY PATIENT DENIES PAIN, NAUSEA, AND SHORTNESS OF BREATH. PATIENT IS A 2P TRANSFER. PATIENT IS ALERT AND ORIENTED TODAY. PATIENT IS FOLLOWING DIRECTIONS AND NOT TRYING TO GET OUT OF BED. FUNEZ WAS DISCONTINUED AT NOON, PATIENT HAS NOT VOIDED. BLADDER SCAN AT 1745 RESULTED WITH 252ML. WILL CONTINUE TO MONITOR. PATIENT EATING AND DRINKING WELL. PATIENT EATS SNACKS WELL. NEW ORDERS FOR [facility] SOFT. PATIENT IS PLEASANT AND COOPERATIVE WITH CARE.
--- NOTE | 2022-01-26 18:43 | NUR ---
BLADDER SCAN 252
[2022-01-27 04:50] LABS: BASOPHILS ABSOLUTE AUTO 0.02 K/mm3 (0.00-0.23); BASOPHILS PERCENT AUTO 0 % (0-2); EOSINOPHILS ABSOLUTE AUTO 0.14 K/mm3 (0.00-0.68); EOSINOPHILS PERCENT AUTO 1 % (0-6); Hematocrit 28.6 % (37.0-53.0); Hemoglobin 9.2 g/dL (13.5-17.5); IMMATURE GRAN ABSOLUTE AUTO 0.04 K/mm3 (0.00-0.10); IMMATURE GRAN PERCENT AUTO 0 % (0-1); LYMPHOCYTES ABSOLUTE AUTO 1.55 K/mm3 (0.84-5.20); LYMPHOCYTES PERCENT AUTO 15 % (21-46); MONOCYTES ABSOLUTE AUTO 0.92 K/mm3 (0.16-1.47); MONOCYTES PERCENT AUTO 9 % (4-13); Mean Corpuscular HGB 29.4 pg (26.0-34.0); Mean Corpuscular HGB Conc 32.2 g/dL (31.5-36.5); Mean Corpuscular Volume 91 fL (80-100); Mean Platelet Volume 9.3 fL (9.1-12.4); NEUTROPHILS ABSOLUTE AUTO 8.01 K/mm3 (1.96-9.15); NEUTROPHILS PERCENT AUTO 75 % (41-73); Platelet Count 441 K/mm3 (150-400); RDW Coefficient Variation 14.8 % (11.7-14.2); RDW Standard Deviation 49.4 fL (35.1-46.3); Red Blood Cell Count 3.13 M/mm3 (4.30-5.90); White Blood Cell Count 10.68 K/mm3 (4.00-11.30)
--- NOTE | 2022-01-27 05:19 | NUR ---
SHIFT SUMMARY: PT REMAINS CALM THROUGHOUT SHIFT. NO ATTEMPTS TO GET OUT OF BED. PT ABLE TO REPOSITION AND TURN SELF IN BED. EATING INDEPENDENTLY WITH INCREASED APPETITE AND DESIRE TO EAT. PATIENT ATE A PUDDING AND 2 APPLESAUCE THIS SHIFT. CAMERA MONITORING, BED ALARM ACTIVATED, CALL SERRANO AND BELONGINGS IN REACH
--- NOTE | 2022-01-27 17:39 | NUR ---
SHIFT SUMMARY PATIENT MEDICATED FOR PAIN X1. PATIENT DENIES NAUSEA AND SHORTNESS OF BREATH. PATIENT IS A 2P FOR TRANSFERS. PATIENT SAT UP IN CHAIR FOR LUNCH. PATIENT HAD ABOUT 600ML IN BLADDER THIS MORNING. STRAIGHT CATHED WTIH AN OUTPUT OF 500ML. PATIENT SPONTANEOUSLY VOIDED 375ML THIS AFTERNOON. PATIENT IS EATING AND DRINKING VERY WELL. PATIENT REQUESTS MULTIPLE SNACKS THROUGHOUT DAY. PATIENT KNOWS HE IS AWAITING SNF PLACEMENT AND LOOKING FORWARD TO THAT. PATIENT IS PLEASANT AND COOPERATIVE WITH CARE.
--- NOTE | 2022-01-28 06:42 | NUR ---
SHIFT SUMMARY: PATIENT HAS RESTED WELL THIS SHIFT, VSS, NO SUICIDE IDEATIONS. PER PSYCH RECOMMENDATION PATIENT REMAINS ON HIGH SUICIDE WATCH UNTIL EVALUATED BY DR KAHN.
--- NOTE | 2022-01-28 18:27 | NUR ---
PATIENT ALERT AND ORIENTATION X 3-4. DENIES SOB OR PAIN THROUGHOUT THE SHIFT. PATIENT URINATED WITH OUT DIFFICULTIES, USE URINAL. V/S WNL. ACCUCHECK ACHS WITH SCHEDULED INSULIN WELL S/S. GOOD APPETITE. NO ACUTE CHANGES TO REPORT DURING THIS SHIFT.
--- NOTE | 2022-01-29 05:34 | NUR ---
ALERT AND OIENTED X'S 4. MEDICATED WITH HYDROCODONE X'S 1 DUE TO C/O LLE PAIN, EFFECTIVE RELIEF. PATIENT PULLED OF DRESSING TO [facility] REMOING PANTS, CLEANED WITH N/S, APPLIED XEROFORM, APPLIED KERLEX, WRAPPED WITH CHINO WRAP. INCISION APPROXIMATED ,SUTURES IN PLACE. CURRENTLY RESTING PEACEFULLY IN BED. SAFETY MAINTAINED, CALL SERRANO IN REACH.
--- NOTE | 2022-01-29 18:46 | NUR ---
SHIFT SUMMARY PATIENT IS ALERT AND ORIENTED X4. PATIENT WAS MEDICATED FOR PAIN ONCE. NO OTHER COMPLAINTS OF PAIN, NAUSEA, SOB OR VOMITTING THIS SHIFT. PATIENT HAS A FRESH BKA AND THE DRESSING IS CDI. PATIENT HAS WORKED WITH PT WELL TODAY. PATIENT HAS HAD NO ACUTE EVENTS THIS SHIFT. BED IN LOCKED AND LOWEST POSITION. CALL LIGT IN PLACE. WILL MONTIOR UNTIL SHIFT CHANGE.
--- NOTE | 2022-01-30 05:16 | NUR ---
AELERT AND ORIENTED X'S 4. MEDICATED WITH HYDROCODONE DUE TO C/O LLE PAIN, EFFECTIVE RELIEF. DRESSINGS INTACT TO BLE'S. NO IMPULSIVE BEHAVIOR. PATIENT USED CALL SERRANO APPROPRITLY. SAFETY MEASURES MAINTAINED, CALL SERRANO IN REACH.
[2022-01-30 12:41] LABS: Influenza A, PCR NEGATIVE (NEGATIVE); Influenza B, PCR NEGATIVE (NEGATIVE); Resp Syncytial Virus, PCR NEGATIVE (NEGATIVE); SARS-Cov-2 (COVID-19) PCR, MMC NEGATIVE (NEGATIVE)
[2022-01-30] MEDS ORDERED: HYDACE10B PO (13:43)
[2022-01-30] MEDS ORDERED: CLOP75 PO (13:43)
[2022-01-30] MEDS ORDERED: GABA300 PO (13:43)
[2022-01-30] MEDS ORDERED: DULCOLAX400 MG/5 M PO (13:44)
[2022-01-30] MEDS ORDERED: XARELTO20 MG PO (13:44)
[2022-01-30] MEDS ORDERED: Flomax0.4 MG PO (13:45)
[2022-01-30] MEDS ORDERED: B-1100 M1 PO (13:45)
--- NOTE | 2022-01-30 14:38 | NUR ---
PATIENT ALERT AND ORIENTATION X 3-4. DENIES SOB OR PAIN THROUGHOUT THE SHIFT. PATIENT URINATED WITH OUT DIFFICULTIES, USE URINAL. V/S WNL. ACCUCHECK ACHS WITH SCHEDULED INSULIN WELL S/S. GOOD APPETITE. DRESSING TO LEFT LEG AND R TOES CHANGED, SURGICAL INCISIONS HEALING WITHOUT S/S OF INFECTION.
== END 2022-01-30 14:45 | disposition home or self-care (01) | DRG 853 ==
LOC: ER 13:48 → ICUW 16:37 → PCU 16:37 → MEDS 16:37 → ICUW 18:30 → MEDS 12-23 15:51 → ENPENDDIS 12-24 13:38 → ICUW 12-24 19:02 → PCU 12-25 18:22 → MEDS 12-29 17:34
PROVIDERS: Emergency Medicine; Family Medicine; Hospitalist; Internal Medicine; Orthopaedic Surgery; Pharmacist; Radiology Diagnostic Radiology; Student in an Organized Health Care Education/Training Program; ADMIT Internal Medicine
PROC: 3E03329 Introduction of Other Anti-infective into Peripheral Vein, Percutaneous Approach (ICD-10-PCS; 2021-12-19)
PROC: 04CL3ZZ Extirpation of Matter from Left Femoral Artery, Percutaneous Approach (ICD-10-PCS; 2021-12-26)
PROC: 047L36Z Dilation of Left Femoral Artery with Three Drug-eluting Intraluminal Devices, Percutaneous Approach (ICD-10-PCS; 2021-12-26)
PROC: 047Q3Z1 Dilation of Left Anterior Tibial Artery using Drug-Coated Balloon, Percutaneous Approach (ICD-10-PCS; 2021-12-26)
PROC: 0Y6J0Z1 Detachment at Left Lower Leg, High, Open Approach (ICD-10-PCS; 2022-01-16)
PROC: 0Y6P0Z0 Detachment at Right 1st Toe, Complete, Open Approach (ICD-10-PCS; 2022-01-18)
PROC: 0Y6R0Z0 Detachment at Right 2nd Toe, Complete, Open Approach (ICD-10-PCS; 2022-01-18)
PROC: 02H633Z Insertion of Infusion Device into Right Atrium, Percutaneous Approach (ICD-10-PCS; 2022-01-18)
PROC: 30233N1 Transfusion of Nonautologous Red Blood Cells into Peripheral Vein, Percutaneous Approach (ICD-10-PCS; principal; 2022-01-28)
DX: A41.9 Sepsis, unspecified organism (principal); E11.01 Type 2 diabetes mellitus with hyperosmolarity with coma; G92.8 Other toxic encephalopathy; J96.01 Acute respiratory failure with hypoxia; E43 Unspecified severe protein-calorie malnutrition; U07.1 COVID-19; T33.822A Superficial frostbite of left foot, initial encounter; T33.821A Superficial frostbite of right foot, initial encounter; I96 Gangrene, not elsewhere classified; E11.52 Type 2 diabetes mellitus with diabetic peripheral angiopathy with gangrene; N17.9 Acute kidney failure, unspecified; E87.0 Hyperosmolality and hypernatremia; N39.0 Urinary tract infection, site not specified; D62 Acute posthemorrhagic anemia; Z68.1 Body mass index [BMI] 19.9 or less, adult; Z51.5 Encounter for palliative care; R65.20 Severe sepsis without septic shock; I10 Essential (primary) hypertension; J44.9 Chronic obstructive pulmonary disease, unspecified; F15.10 Other stimulant abuse, uncomplicated; D69.59 Other secondary thrombocytopenia; E78.5 Hyperlipidemia, unspecified; E87.6 Hypokalemia; R33.9 Retention of urine, unspecified; I77.1 Stricture of artery; E86.0 Dehydration; F03.90 Unspecified dementia, unspecified severity, without behavioral disturbance, psychotic disturbance, mood disturbance, and anxiety; Z91.19 Patient's noncompliance with other medical treatment and regimen; Z90.89 Acquired absence of other organs; Z98.890 Other specified postprocedural states; Z88.0 Allergy status to penicillin; Z79.4 Long term (current) use of insulin; Z79.899 Other long term (current) drug therapy; X31.XXXA Exposure to excessive natural cold, initial encounter; Z78.1 Physical restraint status
CPT/HCPCS: 0241U; 36415; 36430; 36569; 37227; 37228; 51702; 70450; 71045; 73630; 74176; 75625; 75635; 75716; 75774; 76937; 78300; 80048; 80053; 81001; 81003; 82550; 82553; 82947; 83036; 83605; 83735; 84100; 84443; 85014; 85018; 85025; 85027; 85049; 85347; 85520; 85610; 85730; 86850; 86900; 86901; 86923; 87040; 87086; 88305; 88307; 88311; 92526; 92610; 93005; 93010; 93925; 96361-59; 96374-59; 97110; 97163; 97164; 97165; 97168; 97530; 97535; 99152; 99153; 99285-25; A9270; A9561; C1714; C1725; C1751; C1760; C1769; C1874; C1887; C1894; C2623; G0480; J0696; J1100; J1644; J1815; J1885; J2001; J2060; J2250; J2310; J2370; J2405; J2704; J3010; J3480; J7030; J7042; J7050; J7060; J7120; P9016; Q9967; U0004

== ENCOUNTER 2022-04-04 09:57 | Inpatient (IN) | payer MEDICARE, OTHER ==
[~2022-04-04] VITALS: Ht 172.7 cm; Wt 50.6 kg
[~2022-04-04 09:57] MED LIST changes: +B-1100 M1 PO; +CLOP75 PO; +DULCOLAX400 MG/5 M PO; +Flomax0.4 MG PO; +GABA300 PO; +XARELTO20 MG PO
[2022-04-04 10:20] LABS: Hematocrit 39.1 % (37.0-53.0); Hemoglobin 11.8 g/dL (13.5-17.5); Mean Corpuscular HGB 25.9 pg (26.0-34.0); Mean Corpuscular HGB Conc 30.2 g/dL (31.5-36.5); Mean Corpuscular Volume 86 fL (80-100); Mean Platelet Volume 11.6 fL (9.1-12.4); Platelet Count 247 K/mm3 (150-400); RDW Coefficient Variation 16.4 % (11.7-14.2); RDW Standard Deviation 51.6 fL (35.1-46.3); Red Blood Cell Count 4.56 M/mm3 (4.30-5.90); White Blood Cell Count 11.46 K/mm3 (4.00-11.30)
[2022-04-04 10:21] LABS: Base Excess Venous 0.1 mmol/L; Bicarbonate Venous 24.4 mmol/L (24.0-30.0); PO2 Venous 59.3 mmHg (38-42)
[2022-04-04 10:22] LABS: PCO2 Venous 39.1 mmHg (38-42); pH Blood Venous 7.41 (7.34-7.37)
[2022-04-04 10:45] LABS: BAND PERCENT MAN 18 % (0-8); BASOPHILS ABSOLUTE MAN 0.11 K/mm3 (0.00-0.23); BASOPHILS PERCENT MAN 1 % (0-2); EOSINOPHILS PERCENT MAN 0 % (0-6); LYMPHOCYTES ABSOLUTE MAN 1.26 K/mm3 (0.84-5.20); LYMPHOCYTES PERCENT MAN 11 % (21-46); MONOCYTES ABSOLUTE MAN 0.11 K/mm3 (0.16-1.47); MONOCYTES PERCENT MAN 1 % (4-13); NEUTROPHILS ABSOLUTE MAN 9.97 K/mm3 (1.96-9.15); SEG NEUTROPHILS PERCENT MAN 69 % (41-73); TOTAL CELLS COUNTED 100
[2022-04-04 10:53] LABS: Osmolality, Serum 351 mos/KG (275-300)
[2022-04-04 10:57] LABS: Ethanol (Alcohol), Blood, Med <3 mg/dL; Magnesium, Blood 2.3 mg/dL (1.6-2.4)
[2022-04-04 11:14] LABS: Influenza A, PCR NEGATIVE (NEGATIVE); Influenza B, PCR NEGATIVE (NEGATIVE); Resp Syncytial Virus, PCR NEGATIVE (NEGATIVE); SARS-Cov-2 (COVID-19) PCR, MMC NEGATIVE (NEGATIVE)
[2022-04-04 11:27] LABS: Beta-hydroxybutyrate 14.7 mg/dL (0.2-2.8)
[2022-04-04 11:39] LABS: Albumin, Blood 2.6 g/dL (3.4-5.0); Albumin/Globulin Ratio 0.5 (0.8-1.8); Bilirubin, Total 0.4 mg/dL (0.1-1.0); Bun/Creatinine Ratio 30.4 (12.0-20.0); Calcium, Blood 9.4 mg/dL (8.5-10.1); Creatinine, Blood 1.02 mg/dL (0.60-1.20); Globulin, Blood 5.5 g/dL (2.2-4.0); Potassium, Blood 4.1 mmol/L (3.5-5.5); Total Protein, Blood 8.1 g/dL (6.4-8.2)
[2022-04-04 11:41] LABS: Glucose, Blood 827 mg/dL (70-99)
--- NOTE | 2022-04-04 13:25 | NUR ---
ARRIVAL TO ICU PT BROUGHT TO ICU VIA GURNEY. HE IS ON AN INSULIN GTT AT 5.5UNITS/HR. HE IS ALERT AND ORIENTED, SOMEWHAT WITHDRAWN BUT ANSWERS QUESTIONS. HE IS ON 5L NC WHICH HE KEEPS TAKING OFF. NC TAKEN OFF AND SPO2 >93%. AUDIBLE GURGLING, PT HAS WEAK MOIST COUGH. UNABLE TO COUGH ANYTHING UP. SINUS TACH ON MONITOR WITH HR 100S-110S. BP STABLE. PT REPORTS BEING HOMELESS, LIVING IN CAR WITH SPOUSE. DIFFICULTY TAKING CARE OF SELF. DOES NOT OWN A GLUCOMETER AND DOES NOT CHECK GLUCOSE LEVELS. PT USES URINAL WITH MINIMAL ASSISTANCE. SAMPLE COLLECTED AND SENT TO LAB. L EYE HAS LARGE AMOUNT OF CRUST SURROUNDING, PT STS IT HAS BEEN THAT WAY FOR 3 WEEKS. ABOVE L KNEE MOTTLED, PT STS NORMAL APPEARANCE.
[2022-04-04 14:05] LABS: Appearance, Urine Clear (Clear); Bilirubin, Urine Neg (Neg); Blood, Urine 2+ (Neg); Color, Urine Yellow (P-Yellow); Glucose Qualitative, Urine 4+ (Neg); Ketones, Urine 1+ (Neg); Leukocyte Esterase, Urine Neg (Neg); Nitrite, Urine Neg (Neg); Protein, Urine 2+ (Neg); Urobilinogen, Urine NORM (Normal)
[2022-04-04 14:14] LABS: Glucose, Blood 400 mg/dL (70-99)
[2022-04-04 14:22] LABS: Squamous Epithelial Cells Mod /hpf (Few)
[2022-04-04 14:23] LABS: Bacteria Mod /hpf; Granular Casts 0-2 /lpf (0); Hyaline Casts 0-2 /lpf (0-2); Yeast/Fungi Urine Rare /hpf
[2022-04-04 14:46] LABS: U Amphetamine Screen DETECTED; U Barbituate Screen Not Detected; U Benzodiazapine Screen Not Detected; U Buprenorphine Screen Not Detected; U Cannabinoids Screen Not Detected; U Cocaine Screen Not Detected; U Methadone Screen Not Detected; U Methamphetamine Screen DETECTED; U Opiates Screen Not Detected; U Oxycodone Screen Not Detected; U Phencyclidine Screen Not Detected; U Propoxyphene Screen Not Detected
--- NOTE | 2022-04-04 15:51 | NUR ---
UPDATE PT CURRENTLY SLEEPING, WAKENS TO VERBAL STIMULI. C/O ALL OVER CHRONIC PAIN AT BASELINE. PROVIDED WARM BLANKETS, ENCOURAGED REPOSITIONING, AND UNINTERRUPTED REST PROVIDED. L EYE CLEANED WITH WARM WASH CLOTH, MODERATE AMOUNT OF INFANTE CRUST REMAINS. AREA SENSITIVE, WILL ATTEMPT TO CLEAN AGAIN. NT SUCTIONING DONE BY RT. PT NO LONGER COUGHING. HE IS ON 5L NC WITH SPO2 >95%. INSULIN GTT PLACED ON SB DUE TO CBG 247. VSS.
--- NOTE | 2022-04-04 16:27 | NUR ---
UPDATE IN THE LAST HOUR PT HAS MADE COMMENTS INCLUDING "I'M NOT HAPPY" AND "I FEEL DEPRESSED". PT IS WITHDRAWN. NOW PT STS "I WANT TO END IT ALL". WHEN ASKED WHAT HE MEANS HE STS "I WANT TO KILL MYSELF". WHEN ASKED IF HE HAS A PLAN HE STS "KIND OF. I WILL FIND SOMETHING SHARP". A FEW MINUTES LATER HE SAYS "IT WASN'T VERY SMART OF ME TO SAY THAT". HE REPORTS FEELING DEPRESSED AND "ALONE". BUS OPERATOR NOTIFIED, THIS RN TO STAY IN ROOM FOR 1:1 OBSERVATION.
--- NOTE | 2022-04-04 16:54 | NUR ---
UPDATE PT LYING IN BED, MOANING AND RESTLESS. PT DENIES CP AND SOB. C/O THROAT PAIN. HE STS HE IS THIRSTY. EXPLAINED REASONING FOR NPO AGAIN, ORAL CARE PROVIDED. PT PARTICIPATES IN CONVERSATION WHEN SPOKEN TO. HE CONTINUES TO FOLLOW COMMANDS. INSULIN GTT RESTARTED AT 1UNIT/HR. NS INSUING AT 125ML/HR.
--- NOTE | 2022-04-04 18:06 | NUR ---
SHIFT SUMMARY PT REMAINS LYING IN BED. OCCASIONALLY SLEEPING, OCCASIONALLY RESTLESS AND FIGITING. HE STARTLES WHEN AWOKE. HE HAS A TREMOR THAT HE STS IS HIS BASELINE. WHEN AWAKE, HE MOANS AND SHIFTS AROUND. HIS ONLY COMPLAINT IS THAT HE WANTS WATER. EXPLAINED NPO STATUS AGAIN. HE OCCASIONALLY HAS WEAK MOIST COUGH. ENCOURAGED DEEP BREATHING AND COUGHING. HE IS ON 5L NC WITH SPO2 >95%. INSULIN GTT ON STANDBY AT 1750, NS INFUSING AT 125ML/HR. HE EXPRESSED SUICIDAL IDEATION EARLIER, HE REMAINS 1:1 OBSERVATION. HR REMAINS 100-110S, BP STABLE. PT BOOSTED IN BED MULTIPLE TIMES. REPOSTIONS SELF SIDE TO SIDE AND TUCKS PILLOW. WILL REPORT TO ONCOMING RN.
[2022-04-04 18:10] LABS: Bun/Creatinine Ratio 33.8 (12.0-20.0); Calcium, Blood 9.4 mg/dL (8.5-10.1); Creatinine, Blood 0.8 mg/dL (0.60-1.20); Potassium, Blood 3.7 mmol/L (3.5-5.5)
[2022-04-05 03:27] LABS: Hematocrit 34.4 % (37.0-53.0); Hemoglobin 10.5 g/dL (13.5-17.5); Mean Corpuscular HGB 26.4 pg (26.0-34.0); Mean Corpuscular HGB Conc 30.5 g/dL (31.5-36.5); Mean Corpuscular Volume 87 fL (80-100); Platelet Count 209 K/mm3 (150-400); RDW Coefficient Variation 16.2 % (11.7-14.2); RDW Standard Deviation 51.1 fL (35.1-46.3); Red Blood Cell Count 3.97 M/mm3 (4.30-5.90); White Blood Cell Count 11.64 K/mm3 (4.00-11.30)
[2022-04-05 03:46] LABS: Bun/Creatinine Ratio 35.3 (12.0-20.0); Creatinine, Blood 0.77 mg/dL (0.60-1.20); Potassium, Blood 3.7 mmol/L (3.5-5.5)
--- NOTE | 2022-04-05 05:31 | NUR ---
NOTIFIED DR ZHOU OF PT RHYTHM CHANGE FROM SR 80'S TO AFIB 100-120'S. STATED HE WOULD WATCH FOR NOW. PT IS IN NO ACUTE DISTRESS AT THIS TIME.
--- NOTE | 2022-04-05 06:19 | NUR ---
SHIFT SUMMERY PT WENT INTO AFIB AT APPX 0530AM. DR ZHOU WAS NOTIFIED. NO ORDERS GIVEN. PT IS HEMODYNAMICALLY STABLE W/OXYGEN AT 3L NC. PT HAS BEEN OFF INSULIN GTT THE ENTIRE SHIFT. HE IS NPO AT THIS TIME BUT BLOOD SUGARS HAVE BEEN HIGH. PT HAS HAD A SITTER AT BEDSIDE THROUGHOUT THE NIGHT FOR SI. HE IS BECOMING MORE AGITATED MORNING PROGRESSES AND MORE ARGUMENTATIVE REGARDING COMPLIANCE W/TREATMENT.
--- NOTE | 2022-04-05 07:12 | NUR ---
TOOK OVER CARE OF PT AT 0700, PT RESTING AT THIS TIME. NO INSULIN DRIP.
--- NOTE | 2022-04-05 12:47 | NUR ---
PCU ARRIVAL PT BROUGHT TO PCU-09 BY BED FROM ICU @ APPROX 1000. PT A&O X4. VSS. SPO2 > 92% ON 4L NC. LUNG SOUNDS COARSE T/O. RR 20's. PT W/ WEAK, NONPRODUCTIVE COUGH. MONITOR SHOWING AFIB, HR 130's-140's, DOWN TO 110's AFTER SCHEDULED IV LOPRESSOR PUSH. SPEECH THERAPIST REPORTS PT FAILED ST EVAL & RECOMMENDS STRICT NPO. PT UNDERSTANDING OF NPO STATUS. PT MOUTH W/ WHITE COATING SCATTERED T/O. ORAL CARE PROVIDED W/ SUCTION SWABS. PT SKIN PALE & DUSKY. PT REPORTING CHRONIC BACK & L LEG PAIN, DENIES N&T. NS GTT INFUSING PER ORDERS. 1:1 SITTER AT BEDSIDE @ ALL TIMES. WILL CONTINUE TO MONITOR & PROVIDE CARE.
[2022-04-05 12:54] LABS: Bun/Creatinine Ratio 35.9 (12.0-20.0); Calcium, Blood 9.6 mg/dL (8.5-10.1); Creatinine, Blood 0.7 mg/dL (0.60-1.20); Potassium, Blood 3.3 mmol/L (3.5-5.5)
--- NOTE | 2022-04-05 15:30 | NUR ---
AFIB TO SR REGIONAL CLINICAL DIRECTOR REPORTING PT CONVERTED FROM AFIB TO NSR, HR 80'S @ APPROX 1515 THIS SHIFT.
--- NOTE | 2022-04-05 16:45 | NUR ---
SI PRECAUTIONS DISCONTINUED MD KAHN TO PT BEDSIDE FOR PT EVAL. PT DENYING SUICIDAL IDEATION. MD KAHN CONVERSING W/ PT FOR SOME TIME, THEN W/ ORDERS TO DC SI PRECAUTIONS.
--- NOTE | 2022-04-05 18:57 | NUR ---
SHIFT SUMMARY PT CONTINUES TO BE A&O X4. VOICE SOFT & RASPY. VSS. SPO2 > 92% ON 2-4L NC. PT W/ CONTINUED WEAK, WET COUGH. PT REMAINS NPO PER ST RECOMMENDATION. NS GTT INFUSING PER ORDERS. MONITOR NOW SHOWING SR, HR 80's AFTER CONVERTING FROM AFIB TODAY. SI PRECAUTIONS DC'D BY MD KAHN TODAY. CLOSE MONITORING BY STAFF.
[2022-04-06 03:27] LABS: BASOPHILS ABSOLUTE AUTO 0.03 K/mm3 (0.00-0.23); BASOPHILS PERCENT AUTO 0 % (0-2); Hematocrit 35.9 % (37.0-53.0); Hemoglobin 10.7 g/dL (13.5-17.5); LYMPHOCYTES ABSOLUTE AUTO 1.02 K/mm3 (0.84-5.20); LYMPHOCYTES PERCENT AUTO 10 % (21-46); MONOCYTES ABSOLUTE AUTO 0.43 K/mm3 (0.16-1.47); MONOCYTES PERCENT AUTO 4 % (4-13); Mean Corpuscular HGB Conc 29.8 g/dL (31.5-36.5); Mean Corpuscular Volume 87 fL (80-100); Platelet Count 228 K/mm3 (150-400); RDW Coefficient Variation 16.5 % (11.7-14.2); RDW Standard Deviation 52.9 fL (35.1-46.3); Red Blood Cell Count 4.12 M/mm3 (4.30-5.90); White Blood Cell Count 10.55 K/mm3 (4.00-11.30)
[2022-04-06 03:34] LABS: EOSINOPHILS ABSOLUTE AUTO 0.34 K/mm3 (0.00-0.68); EOSINOPHILS PERCENT AUTO 3 % (0-6); IMMATURE GRAN ABSOLUTE AUTO 0.07 K/mm3 (0.00-0.10); IMMATURE GRAN PERCENT AUTO 1 % (0-1); NEUTROPHILS ABSOLUTE AUTO 8.66 K/mm3 (1.96-9.15); NEUTROPHILS PERCENT AUTO 82 % (41-73)
[2022-04-06 03:50] LABS: Bun/Creatinine Ratio 35.1 (12.0-20.0); Creatinine, Blood 0.66 mg/dL (0.60-1.20); Potassium, Blood 3.4 mmol/L (3.5-5.5)
--- NOTE | 2022-04-06 05:14 | NUR ---
SHIFT SUMMARY PT ALERT AND ORIENTED X 4. ABLE TO TURN SELF IN BED NEEDED. HR STABLE. BP STABLE. NO CP OR PRESSURE. WOUND ON R FOOT CLEANED AND DRESSED. OXYGEN SATURATION MAINTAINED ABOVE 92% ON 4-5 L VIA NC. PT REPORTS PAIN IN BACK, MEDICATED PER EMAR. PT REPORTED SOB AT ONE TIME, RT NOTIFIED AND PT PROVIDED WITH BREATHING TX. PT REPORTS RELIEF. PT USES URINAL AT BEDSIDE. BED ALARM IN PLACE. CALL LIGHT WITHIN REACH. WILL CONT TO MONITOR UNTIL REPORT GIVEN TO DAYSHIFT RN.
--- NOTE | 2022-04-06 05:20 | NUR ---
UPDATE PT'S PROVIDED WITH UPDATE ON PT.
--- NOTE | 2022-04-06 13:03 | NUR ---
Spoke with Primary RN Mavis and discussed case. Dr Parikh has discussed with Pt regarding his unsafe swallow and options moving forward including G-Tube and comfort care. Pt resting in bed and is A&O. Engaged in therapeutic listening as Pt reports concerns regarding not being able to eat and drink. Therapeutic discussion regarding choices, considering goals and values. Answered questions and continued therapeutic listening. Pt reports not wanting a G Tube but inquires about a NG tube. Gentle education regarding NG tube being meant as a temporary option. Pt requests a NG tube in order for ST to continue working with Pt in hopes to regain a safe swallow. Continued therapeutic listening. Spoke with Dr Parikh and discussed case. Placed order for NG tube and tea taster for enteral feedings per V/O from Dr Parikh. Palliative Care will remain available.
--- NOTE | 2022-04-06 17:00 | NUR ---
SHIFT SUMMARY/TRANSFER TO MEDICAL PT A&Ox4, VSS, SR 90'S WITH PVC'S, SPO2> 92% ON RA. DOBHOFF PLACED AND TUBE FEEDING STARTED PER MD ORDER. REPORT GIVEN TO MEDICAL FLOOR RN AT APPROXIMATELY 1530. PT TRANSFERED TO MEDICAL FLOOR WITH BELONGINGS AT 1645.
--- NOTE | 2022-04-06 19:23 | NUR ---
THIS RN AGREES W/ STUDENT NURSE DOCUMENTATION THIS SHIFT.
--- NOTE | 2022-04-06 19:49 | NUR ---
SUMMARY- PT A/O X4, PLEASANT AND COOPERATIVE. TUBE FEEDS RUNNING WITH GLUCERNA AT 25ML/HR, TOLERATING FEEDS FINE. CALLED DR MENA TO REINSTATE TELE METOPROLOL IS ORDERED IV Q6. PT IS STRICT NPO. HAS OCC MOIST COUGH, MIN PRODUCTION. ENC FLUTTER AND IS USE.
--- NOTE | 2022-04-06 22:26 | NUR ---
TUBE FEEDING INCREASED FROM 25 ML/HR TO 35 ML/HR PER MD ORDERS - TOLERATING FEEDING WELL. CALL LIGHT IN REACH. HOB AT 45 DEGREES
--- NOTE | 2022-04-07 02:49 | NUR ---
tele reported ST depression, significantly different as compared to that of yesterday. Call placed to MD spinneret person, MD assessed situation and IV Lopressor discontinued. AM labs to include K+ and Mag levels.
--- NOTE | 2022-04-07 04:13 | NUR ---
SPUD GRADER SUMMARY STRICT NPO CONTINUES THROAT ISSUES CONTINUE. TUBE FEEDING CONTINUES, WAS INCREASED FROM 25 ML/HR TO 35 ML/HR IS SCHEDULED TO INCREASE 10 ML/HR EVERY 8 HRS UNTIL GOAL OBTAINED. WSA RECEIVING IV LOPRESSOR EVERY 6 HRS UNTIL TELE REVEALED VENTRICULAR TRIGEMINY AND ST DEPRESSION. MD WAS NOTIFIED AND IV LOPRESSOR WAS DISCONTINUED. LABS DRAWN FOR ASSESSMENT/EVAL. Q4HR ACCU CHECKS CONTINUE, SEE MAR FOR DETAILS IF AND WHEN INSULIN ADMINISTERED. AWAKE AT INTERVALS THROUGH SHIFT. CALL LIGHT IN REACH. HOB ELEVATED.
[2022-04-07 04:56] LABS: Phosphorus, Blood 3.7 mg/dL (2.5-4.9)
--- NOTE | 2022-04-07 05:36 | NUR ---
TUBE FEEDING INCREASED FROM 35 ML/HR TO 45 ML/HR PER MD ORDERS. CALL LIGHT IN REACH
--- NOTE | 2022-04-07 16:01 | NUR ---
Pt resting in bed upon arrival. Reviewed plan of care and offered therapeutic listening. Pt reports reconsidering NG tube since it was placed yesterday. He reports no willing to give up food and fluids. Gentle education on consequences of eating and drinking. Pt V/U and states "I don't have any family left anyway". Continued therapeutic listening. Discussed the importance of being sure of decision with Pt confirming he wants to eat and drink and does not want NG tube of G-tube. Discussed comfort care and educated on comfort care philosopy with V/U made by Pt. Pt elects comfort care. Pt reports attempting to get a hold of his spouse all day today and goes to voicemail with no option to leave message due to voicemail box being full. Pt reports no other concerns at this time. Attempted to contact Pt's spouse. Numbers listed on facesheet are no longer in service. Phone number Pt provided, voicemail box is full with no option to leave message. Called and spoke with Dr Parikh. Relayed Pt's wishes with Dr Parikh in agreement. Placed comfort care order, comfort care order set per V/O from Dr Parikh. Diet advanced as tolerated. Spoke with Primary RN Amara and discussed case. Amara reports Pt has been discussing wanting to continue to eat and drink. Amara also discussed options. Palliative Care will remain available for supportive visits and symptom management.
--- NOTE | 2022-04-07 18:42 | NUR ---
SUMMARY- PT DECIDED TO BECOME COMFORT CARE/DNR AND START ADA [facility] SOFT DIET. ADRIANNE CHAVEZ'Dunia. EXTENSIVE TEACHING FROM DR MOELLER, RN AND MIRI RN TO WHAT IT MEANS TO START EATING WITH PARALYZED ESOPHAGIS AND HIGH RISK OF ASPIRATION PNEUMONIA. PT STATES HE UNDERSTANDS AND DOESN'T WANT A LIFE IF HE CANT EAT. SINCE ORDER CHANGES, PT HAS BEEN EATING NON-STOP. NO SIGNS OF ASPIRATION. TOLERATING PUDDING, CRACKERS, CHEESE.. TAKING IN ICE CHIPS. WILL REPORT CHANGES TO NOC RN
--- NOTE | 2022-04-07 21:05 | NUR ---
PT NOW ON COMFORT CARE. TOLERATING EATING PUDDING. NO C/O VOICED. CALL LIGHT IN REACH
--- NOTE | 2022-04-08 03:06 | NUR ---
PT WAS SITTING AT BEDSIDE AFTER USING URINAL. EMPTIED THE URINAL. PT REQUESTED A SNACK. STATED HE WAS COMFORTABLE.
--- NOTE | 2022-04-08 04:48 | NUR ---
I HAVE OBSERVED STUDENT ASSESSMENTS AND READ HER DOCUMENTATIONS. I AGREE WITH SAID DOCUMENTATION. - BERNABE
--- NOTE | 2022-04-08 05:14 | NUR ---
E D TECH SUMMARY PT ADMIT W/HYPERGLYCEMIC HYPEROSMOLAR NONKETOTOIC COMA. PT NG TUBE REMOVED YESTERDAY AND PT PLACED ON COMFORT CARE AFTER CONSULT W/PALLIATIVE CARE. PT ON ADA [facility] SOFT DIET. PT HAS BEEN TOLERATED FOOD WELL W/NO ASPIRATION. PT C/O OF PAIN IN HIS RT FOOT. PRN MEDS P/JAN. PT USING URINAL TO VOID AND TO THE BATHROOM W/ASSISTANCE. PT ORIENTED TO CALL LIGHT; LIGHT IN REACH.
--- NOTE | 2022-04-08 08:15 | NUR ---
Comfort Care visit Joe is sitting at the EOB this morning and eating breakfast. He reports that the morphine he was given earlier has made him comfortable. No distress noted. Pt does have a wet sounding weak cough at times after he swallows. He is requesting a wc to be able to get into the bathroom by himself. Spoke with his CHILI POWDER MIXER who states he is currently a 2 person assist for moving. Explained to Joe that he needs to call for assistance to go to the bathroom for safety reasons. He states he doesn't like having to be dependent but voices understanding for the need to call for assistance with getting OOB. Pt voices no other requests or concerns at this time. Call light in pt's reach.
--- NOTE | 2022-04-08 22:43 | NUR ---
COMFORT CARE ASSESSMENT CHECKED ON PT. RESTING COMFORTABLY. CALL LIGHT IN REACH.
--- NOTE | 2022-04-09 00:22 | NUR ---
PT SITTING AT BEDSIDE; REPORS 9/10 PAIN IN RT FOOT; REQ MEDS.
--- NOTE | 2022-04-09 03:05 | NUR ---
PT SITTING UP AT BEDSIDES; REQUESTED ROOT BEER; STATES HE IS COMFORTABLE;
--- NOTE | 2022-04-09 05:11 | NUR ---
SENIOR COMPLIANCE OFFICER SUMMARY PT ON COMFORT CARE. 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 PAIN IN PT RT FOOT CONTROLLED W/PRN PAIN MEDS. PT IS 2 PERSON ASSIST T/BSC. PT WILL USE URINAL TO VOID. PT HAS BEEN RESTLESS THROUGH THE EVENING AND SITTING AT EOB EVERY COUPLE OF HOURS. WHEN UP, PT IS ASKING FOR SNACKS AND SODA. PT REQUESTED A WC AGAIN T/AMBULATE SELF T/BA. EDUCATED PATIENT ON NEED T/CALL FOR ASSIST F/SAFETY. PT HX OF HOMELESSNESS. WAITING ON PLACEMENT F/DISCHARGE. PT HAS CONTINOUS SUCTIONING BUT REPORTS HE HASN'T USED IT AND DENIES NEED. PT COUGHING HAS INCREASED THROUGH THE EVENING. PT DENIES SOB/DIFFICULTY BREATHING. CONT Q2 COMFORT ASSESSMENT. CALL LIGHT IN REACH.
--- NOTE | 2022-04-09 14:26 | NUR ---
Comfort Care Visit Pt sitting on edge of bed. Pt denies pain and dyspnea at this time. Offered gentle voice and therapeutic listening. Pt reports no concern at this time. Pt appears comfortable with no S/S of distress at this time. Palliative Care will remain available.
--- NOTE | 2022-04-09 17:53 | NUR ---
SHIFT SUMMARY PT A&OX4. VSS. HAS BEEN REQUESTING PAIN MEDS TODAY. HAS BEEN EATING MEALS AND SNACKS THROUGHOUT THE SHIFT. DENIES DIFFICULTY BREATHING, O2 SATS ARE >90% ON RA. LOW GRADE TEMP OF 99.0. PLAN IS CM IS TRYING TO FIND PLACEMENT FOR HIM SO HE DOESN'T HAVE TO RETURN TO LIVING IN HIS CAR.
--- NOTE | 2022-04-09 22:02 | NUR ---
AWAKE. DENIES DISTRESS, CALL LIGHT IN REACH. ASKING FOR "GRAHM CRACKERS AND CHEESSE"
--- NOTE | 2022-04-10 03:33 | NUR ---
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 TOLERATING FOOD, SLEEPING QUIETLY AT INTERVALS. ASSISTED TO BEDSIDE COMMODE WHEN NEEDING TO GO. NO C/O PAIN OR DISCOMFORT AT THIS TIME. CALL LIGHT IN REACH
--- NOTE | 2022-04-10 07:49 | NUR ---
pt up on the side of the bed appears to be comfortable denied pain at this time
--- NOTE | 2022-04-10 10:44 | NUR ---
Comfort Care Visit Pt sitting on edge of bed upon arrival. Pt denies dyspnea and anxiety at this time. Pt does report 8/10 pain in his foot and is requesting pain medication. Pt reports no other concerns at this time. Left message with Primary RN Konstantin and relayed Pt's request for pain medication. Palliative Care will remain available.
--- NOTE | 2022-04-10 16:17 | NUR ---
PT LYING DOWN IN BED BREATHING EASILY APPEARS TO BE COMFORTABLE
--- NOTE | 2022-04-10 16:18 | NUR ---
PT UP ON THE SIDE OF THE BED REPORTS FOOT PAIN. MEDICATED FOR PAIN WILL CONTINUE TO MONITOR FOR CHANGES
--- NOTE | 2022-04-10 16:19 | NUR ---
PT RESTING IN BED APPEARS TO BE COMFORTABLE. CALL LIGHT IN REACH
--- NOTE | 2022-04-10 16:21 | NUR ---
PT REPORTS FOOOT PAIN 06/26 GAVE MORPHINE 10 MG. CALL LIGHT IN REACH. PT UP ON THE SIDE OF THE BED
--- NOTE | 2022-04-11 04:13 | NUR ---
PT RESTING COMFORTABLY. CALL LIGHT WITHIN REACH
--- NOTE | 2022-04-11 12:12 | NUR ---
PT IS UP ON THE SIDE OF THE BED THIS AM A/OX4 APPEARS TO BE BREATHING EASILY
--- NOTE | 2022-04-11 12:13 | NUR ---
PT UP ON THE SIDE OF THE BED FOR LUNCH APPEARS TO BE COMFORTABLE
--- NOTE | 2022-04-11 12:15 | NUR ---
PT UP ON THE SIDE OF THE BED FOR LUNCH APPEARS TO BE COMFORTABLE
--- NOTE | 2022-04-11 12:17 | NUR ---
PT MEDICATED FOR PAIN WITH MORPHINE 10 MG
--- NOTE | 2022-04-11 16:52 | NUR ---
PT TALKING ON PHONE LAYING IN BED REPORTED LEFT FOOT PAIN 8O MORPHINE GIVEN
--- NOTE | 2022-04-11 16:53 | NUR ---
PT LAYING IN BED APPEARS TO BE COMFORTABLE. CALL LIGHT IN REACH
--- NOTE | 2022-04-11 17:21 | NUR ---
PT UP ON THE SIDE OF THE BED. CHANGED [facility] SECOND TOE DRESSING. PT MEDICATED FOR PAIN. NO OTHER CHANGES NOTICED THIS SHIFT. THE PT APPEARS TO BE BREATHING EASILY ON RA AT THIS TIME
--- NOTE | 2022-04-11 17:29 | NUR ---
pt crying out and having increased terminal aggitation and air hunger. medicated for comfort and pt comfortable. after about 30 minutes starting to transition family called to speak with her on phone and chaplian here.
--- NOTE | 2022-04-11 20:39 | NUR ---
PHYSICIAN COMMUNICATION NOTIFIED DR ZHOU THAT PATIENT'S BLOOD GLUCOSE CAME BACK AT >500 ON THE POINT OF CARE METER AND THAT HE REFUSED THE LAB BLOOD DRAW. NO ORDERS GIVEN
--- NOTE | 2022-04-12 07:17 | NUR ---
SHIFT SUMMARY PATIENT ALERT AND ORIENTED. MEDICATED PER EMAR FOR PAIN. HAD NO COMPLAINTS OF SHORTNESS OF BREATH. NO ACUTE ISSUES NOTED OVERNIGHT. CALL LIGHT WITHIN REACH. REPORT GIVEN TO ONCOMING RN.
--- NOTE | 2022-04-12 16:01 | NUR ---
SHIFT SUMMARY PATIENT IS ALERT AND ORIENTED X3-4. PATIENT IS ON COMFORT CARE. PATIENT HAS REQUESTED PAIN MEDICATION TWICE THIS SHIFT FOR PAIN IN LEGS. PATIENT HAS NO COMPLAINTS OF NAUSEA, VOMITTING, OR SOB THIS SHIFT. NO ACUTE EVENTS THIS SHIFT. BED IN LOCKED AND LOWEST POSITION. CALL LIGHT IN PLACE. WILL MONITOR UNTIL SHIFT CHANGE.
--- NOTE | 2022-04-12 17:33 | NUR ---
pt resting most of day will see hospice house placement is possible.
--- NOTE | 2022-04-13 14:44 | NUR ---
pt stable resting most of day. awaiting placement.
--- NOTE | 2022-04-13 16:06 | NUR ---
SHIFT SUMMARY PATIENT IS ON COMFORT CARE. PATIENT HAS BEEN MEDICATED PER EMAR ONCE FOR PAIN IN PATIENTS LEGS. PATIENT HAS HAD NO ACUTE ISSUES THIS SHIFT. PATIENT HAS REMAINED HIGH ON CBG. DR VIDAL NOTIFIED. WILL MONITOR UNTIL SHIFT CHANGE
--- NOTE | 2022-04-14 05:04 | NUR ---
SHIFT SUMMAEY: PATIENT IS ON COMFORT CARE DENIES PAIN, NAUSEA, DYSPENA. REQUESTS SNACKS FREQUENTLY. PAIENT BLOOD SUGARS ELEVATED >400 EDUCATED PATIENT ON DIET, PATIENT STATES HE IS ON COMFORT CARE AND DOES NOT WANT ANT DIETARY RESTRICTIONS. 30UNITS LONG ACTING INSULIN GIVEN PER EMAR. NO SIGNIFICANT EVENTS ON NOC.
--- NOTE | 2022-04-15 04:53 | NUR ---
SHIFT SUMMARY: NO SIGNIFICANT EVENTS ON NOC. PATIENT TREATED WITH ROXINAL X1. PATIENT CONTINUES TOR EQUEST COPIUOS AMOUNTS OF SNACKS SPECIFICALLY CHEDDAR CHEESE AND CRACKERS DESPITE HIS ELEVATED BLOOD SUGARS AND EDUCATION PROVIDED BY NURSING STAFF. TONIGHT HE HAS BEEN YELLING OUT FROM HIS ROOM AND BANGNING ON HIS TABLE IF STAFF DOES NOT REPOSND TO HIS CALL LIGHT QUICK ENOUGH. SPOKE TO PATIENT REGARDING APPROPIATE BEHAIVOR IN THE HOSPITAL, HE APOLOGIZED, AND VEBALIZED UNDERSTANDING, NO FURTHER INCIDENTS THIS SHIFT.
--- NOTE | 2022-04-15 12:57 | NUR ---
DR. VIDAL NOTIFIED OF [phone].
--- NOTE | 2022-04-15 13:39 | NUR ---
PATIENT ALERT AND ORIENTED X4, INDEPENDENT WITH URINAL, REQUESTS CHEESE AND CRACKERS WHICH WERE PROVIDED, COMPLAINED OF PAIN IN RIGHT FOOT. MEDICATED WITH ROXANOL PER EMAR. NO ACUTE CHANGES OR CONCERNS AT THIS TIME. PATIENT REPOSITIONS HIMSELF AND IS ABLE TO USE CALL LIGHT. CALL LIGHT IN REACH, BED IN LOWEST POSITION, BED ALARM ON.
--- NOTE | 2022-04-15 18:13 | NUR ---
SHIFT SUMMARY: PATIENT RESTED WELL AND ATE WELL INDEPENDENTLY. NO SIGNS OF ASPIRATION OR CHOKING. A/O X4. PATIENT USED URINAL INDEPENDENTLY AND RESPOSITIONED HIMSELF THROUGHOUT THE DAY. PAIN MANAGED WITH ROXANOL THIS MORNING, GAVE TORADOL THIS EVENING. PATIENT SNACKED ON CHEESE AND CRACKERS THROUGHOUT THE DAY. IRRITAABLE AT TIMES BUT REDIRECTABLE. COOPERATAIVE WITH CARE.
--- NOTE | 2022-04-16 06:44 | NUR ---
SHIFT SUMMARY: NO SIGNFICANT EVENTS ON NOC. PAIN MANAGED PER EMAR. WOUND CARE PROVIDED TO RIGHT FOOT. PATIENT CONTINUES TO EAT COPIOUS AMOUNTS OF CRACKERS, CHEESE, AND PUDDING.
--- NOTE | 2022-04-16 17:02 | NUR ---
shift summary- PT A&O X3. PT NONCOMPLIANT WITH CARE AT TIME AND THREATENS TO LEAVE. SPOKE WITH CARE MANAGEMENT AND CM SPOKE WITH HIM ABOUT HIS WILL TO LEAVE IF HE WOULD LIKE. PT AGREES TO STAY AT THIS TIME. PT C/O PAIN, TREATED PER EMAR. PT APPETITE GOOD. PT REQUESTS LOTS OF SNACKS. PT INDEPENDANT IN ROOM. PT RESTING NOW WITH CALL LIGHT IN REACH.
--- NOTE | 2022-04-16 22:43 | NUR ---
PT REPORTS NO NEEDS AT THIS TIME. PT INDEP WITH BED MOBILITY AND REPOSITIONING. HAVE GIVEN HIM MULTIPLE SNACKS PER REQUEST. USES CALL LIGHT FREQUENTLY.
--- NOTE | 2022-04-17 04:00 | NUR ---
SHIFT SUMMARY COMFORT CARE PT. TORADOL FOR PAIN PRN. PT INDEP TO BSC AND INDEP WITH BED MOBILITY. CALLS FREQUENTLY FOR SNACKS. NO ACUTE CHANGES.
--- NOTE | 2022-04-17 17:22 | NUR ---
SHIFT SUMMARY- PT NAUSATED DUE TO DIET REQUESTED DURING BEGINING OF HSIFT. PT WAS MEDICATED PRIOR TO SHIFT CHANGE PER EMAR. PT HAD BM AND SEEM TO FEEL BETTER, REQUESTING EVEN MORE "CHEESE" PT REPORTABLY FELL DURING MID SHIFT. FALL WAS UNWITNESSED. PT WAS FOUND CLIMBING INTO BED. PT SITTING ON SIDE OF BED WHEN ADDRESSED ABOUT WHAT HAPPENED. PT REPORTED HE FELL TRYING TO OPEN CURTAINS. PT ASSESSED AND MEDICATED PER EMAR. PT EDUCATED ABOUT USING HIS CALL LIGHT AND NOT GETTING OUT OF BED UNLESS HE HAS ASSISTANCE. PT RESTING IN BED WITH BED ALARM, CALL LIGHT IN REACH.
--- NOTE | 2022-04-18 03:41 | NUR ---
PT IS ON COMFORT CARE. PT HAD COMPLAINT OF PAIN IN LEFT STUMP. MEDICATED PER EMAR WITH TORADOL. PT CALLS FREQUENTLY FOR SNACKS. PT USES BSC INDEPENDENTLY. PT HAD C/O GAS AND WAS MEDICATED PER EMAR WITH SIMETHICONE. PT IS RESTING IN BED UPSIDE DOWN WITH CALL LIGHT WITHIN REACH AND BED IN LOWEST POSITION.
--- NOTE | 2022-04-18 06:43 | NUR ---
PHARMACOLOGIST NOTES AND DOCUMENTS REVIEWED AND IN AGREEMENT
--- NOTE | 2022-04-18 16:53 | NUR ---
SHIFT SUMMARY PT A&O X 4. VSS. HAS APPEARED TO REST COMFORTABLY LYING ON THE BED WITH HIS HEAD AT THE FOOT OF THE BED. HAS DENIED THE NEED FOR PAIN MEDS THIS SHIFT. MD REMOVED THE BANDAGE FROM PT'S R 3RD TOE TO EXAMINE FOR POSSIBLE INFECTION. MD REPORTS NO INFECTION VISUALIZED. WOUND CLEAN AND DRY WITH NO REDNESS, SWELLING OR DRAINAGE NOTED. TOE WOUND CLEANED & RE-BANDAGED WITH SMALL DOT MEPIPLEX. PT'S APPETITE IS GOOD, REQUESTING SNACKS THROUGHOUT THE SHIFT. HIS CBG WAS 118 THIS AM. THIS AFTERNOON PT C/O NOT BEING ABLE TO SLEEP WELL AT NIGHT AND REQUESTED A PHONE CALL BE PLACED TO MD REQUESTING SLEEP MEDICATION. RN SPOKE WITH MD AND ORDERS RECEIVED. PLAN IS TO POSSIBLY FIND PLACEMENT FOR PT. WITH MD & ORDERS RECEIVED FOR MELATONIN. SEE EMAR.
--- NOTE | 2022-04-19 04:06 | NUR ---
SHIFT SUMMARY PATIENT ON COMFORT CARE. AXOX 3 AND ONE ASSIST TO BSC. LEFT BKA. REPORTS RIGHT LEG/BACK PAIN MANAGED ALTERNATING TYLENOL 650 MG, PO TORADOL 10 MG, AND ROXANOL 10 MG. PATIENT REPORTED NOT SLEEPING WELL AT NIGHT. SCHEDULE MELATONIN GIVEN WITH MINIMAL EFFECT. CBG 184. SIMETHICONE GIVEN FOR ABDOMINAL PAIN X ONE. NO IV ACCESS. CALL LIGHT IN REACH. BED IN LOWEST POSITION. WILL CONTINUE TO MONITOR UNTIL DAY SHIFT NURSE ASSUMES CARE.
--- NOTE | 2022-04-19 19:31 | NUR ---
SHIFT SUMMARY PT'S STATUS REMAINS UNCHANGED. COMFORT CARE, APPETITE REMAINS GOOD. NO C/O BREATHING DIFFICULTY, NO VISUAL SIGNS OF DYSPNEA. PT IS INDEPENDENT IN THE ROOM GOING FROM BED TO BSC TO CHAIR. PLAN IS TO CONTINUE LOOKING FOR PLACEMENT.
--- NOTE | 2022-04-20 06:38 | NUR ---
NO CHANGES FOR [place] OVERNIGHT. PATIENT IS ALERT AND ORIENTED, AND "WAITING FOR TO COME BACK WITH THE CAR" SO HE CAN BE DISCHARGED. HE WAS AWAKE UNTIL AROUND 2400. PO TORADOL GIVEN TWICE FOR COMPLAINTS OF FOOT PAIN. BOTH TIMES, PATIENT WAS ASLEEP WITHIN 30 MINUTES OF RECEIVING THE MEDICATION. HE CONSUMED SEVERAL SNACKS, AND APPEARED TO SWALLOW THEM WITHOUT CHOKING OR ANY SIGNS OF ASPIRATION
--- NOTE | 2022-04-20 16:06 | NUR ---
[facility] Care Volunteer visit today. Volunteer wheeled pt around hospital for change of scenery and had good therapeutic visit with him.
--- NOTE | 2022-04-20 16:57 | NUR ---
DAY SHIFT SUMMARY 67 YR OLD COMFORT CARE/DNR WITH HYPERGLYCEMIC HYPEROSMOLAR NONKETOTIC COMA ON ADMIT. PT ON RA, ABLE TO TAKE MEDS WHOLE. WAITING PLACEMENT. CALL LIGHT WITHIN REACH AND ABLE TO CALL APPROPRIATELY. FREQUENT ROUNDING.
--- NOTE | 2022-04-21 03:10 | NUR ---
PATIENT UP MOST OF NIGHT FIDGETING IN HIS ROOM GOING BETWEEN CHAIR, BED AND COMMODE. MINIMAL COMPLAINT OF FOOT PAIN AROUND HS WHICH WAS RESOLVED WITH TYLENOL. PATIENT OCCASIONALLY VOIDING IN URINAL. URINE IS PALE YELLOW AND CLEAR. STRONG APPETITE, AND VERY MINIMAL (IF ANY) CHOKING OR COUGHING NOTED OVERNIGHT. PATIENT HOPING TO SEE HIS TODAY IT IS HER BIRTHDAY.
--- NOTE | 2022-04-21 16:33 | NUR ---
DAY SHIFT SUMMARY 67 YR OLD MALE PT, REPORT OF FALL THIS SHIFT. PT ATTEMPTING TO "GO FOR A WALK" INTO HALLWAY WITH HIS WALKER. PT STATES HE REACHED FOR THE DOORFRAME AND MISSED SO HE WENT DOWN ONTO HIS BKA. PT WAS FOUND WITH BKA ON GROUND, OTHER FOOT STILL ON GROUND AND BOTH HANDS ON WALKER HANDLES. PT WAS HELPED TO STANDING AND TAKEN BACK TO BED. POST FALL ASSESSMENT PERFORMED WITH NO NEW FINDINGS. MD AND CHARGE NOTIFIED. PT EDUCATED ON PROPER USE OF WALKER AND TO CALL FOR ASSISTANCE WHEN AMBULATING. CALL LIGHT IS WITHIN REACH.
--- NOTE | 2022-04-22 06:23 | NUR ---
SHIFT SUMMARY NOC: PT BACK AND FORTH FROM BED TO CHAIR TO BSC ALL NIGHT. PT REPORTS PAIN TO LEFT BKA STUMP, TYLENOL GIVEN WITH POSITIVE RESULT. PT STATES HE CANNOT SLEEP BECAUSE HE HAS ALOT ON HIS MIND CONCERNING AND DISCHARGE PLANS RELATING TO PLACEMENT. PT EATING AND DRINKING WELL. NO SIGNS OF ASPIRATION.
--- NOTE | 2022-04-22 07:16 | NUR ---
ASSUMED CARE OF PT- BEDSIDE REPORT COMPLETED WITH NIGHT RN. PT SITTING UP IN CHAIR, PER REPORT PT ALERT, ORIENTED AND INDEPENDENT TO THE BSC. ALSO PER REPORT PT HAD A FALL YESTERDAY. PT IS ON COMFORT CARE AND IS AN ASPIRATION RISK, LIGHT COUGH NOTED WHEN THE PT DRANK A SIP OF COFFEE DURRING SHIFT REPORT. PT SITTING UP IN A CHAIR, CALL LIGHT IN REACH NO S&S OF DISTRESS NOTED WILL CTM.
--- NOTE | 2022-04-22 14:52 | NUR ---
COMFORT CARE NOTE- PT SITTING UP IN THE CHAIR IN HIS ROOM, NO S&S OF DISTRESS, PT MAKING PHONE CALLS TO TALK WITH HIS ABOUT DISCHARGE PLANS. PT STATED 8/10 PAIN IN THE STUMP, MEDICATED WITH PRN TYLENOL. WILL CTM
--- NOTE | 2022-04-22 19:27 | NUR ---
SHIFT SUMMARY- PT ALERT, ORIENTED AND INDEPENDENT TO THE BSC. PT HAD 1 C/O PAIN T/O THE DAY THAT SEEMED WELL MANAGED WITH TYLENOL. PT CURRENTLY IN BED, CALL LIGHT IN REACH, BEDSIDE REPORT COMPLETED WITH NIGHT RN NO S&S OF DISTRESS OR DISCOMFORT AT THIS TIME.
--- NOTE | 2022-04-23 05:57 | NUR ---
SHIFT SUMMARY NOC: PT UP AND DOWN ALL NIGHT FROM CHAIR TO BED TO BSC. ASKS FOR SNACKS FREQUENTLY. HAD UPSET STOMACH AND BLOATING THIS MORNINGS DUE TO OVEREATING. PT GIVEN PRN SIMETHICONE. PT ANXIOUS TO DISCHARGE BUT UNDERSTANDS CASE MANAGEMENT IS WORKING ON IT.
--- NOTE | 2022-04-23 15:31 | NUR ---
mr. rutledge is comfortable, plan is to dc tomorrow. pt high risk for readmission. spoke to him about being careful with substance use.
--- NOTE | 2022-04-23 15:35 | NUR ---
SHIFT SUMMARY PATIENT IS ALERT AND ORIENTED X4. PATIENT HAS HAD NO ACUTE EVENTS THIS SHIFT. PATIENT IS ANXIOUS FOR DISCHARGE, DISCHARGE PLANNING IS PLANNING ON POSSIBLE DISCHARGE TOMORROW TO A HOTEL. BED IN LOCKED AND LOWEST POSITION. CALL LIGHT IN PLACE. WILL MONTIOR UNTIL SHIFT CHANGE. PATIENT IS IND IN ROOM.
--- NOTE | 2022-04-24 06:08 | NUR ---
SHIFT SUMMARY NOC: PT SLEPT MOST OF NIGHT. EATS SNACKS FREQUENTLY. EAGER TO DISCHARGE. NO ADVERSE EVENTS.
[2022-04-24] MEDS ORDERED: Lopressor 50 mg50 MG PO (13:54)
[2022-04-24] MEDS ORDERED: SIME80CH PO (13:55)
[2022-04-24] MEDS ORDERED: ZOLP5 PO (13:55)
--- NOTE | 2022-04-24 14:56 | NUR ---
PATIENT DISCHARGED ON HOSPICE. Case management setting on hospice referrals and transportation. No acute changes to pt condition, stable no pain/discomfort reported today. Pt left medical unit at 1400, transported home.
== END 2022-04-24 14:05 | disposition hospice, home (50) | DRG 871 ==
LOC: ER 09:57 → ICUE 12:19 → ICUW 12:19 → MEDS 12:19 → ICUE 13:25 → PCU 04-05 10:11 → MEDS 04-06 16:46
PROVIDERS: Emergency Medicine; Internal Medicine; ADMIT Internal Medicine
DX: A41.9 Sepsis, unspecified organism (principal); E11.01 Type 2 diabetes mellitus with hyperosmolarity with coma; J96.01 Acute respiratory failure with hypoxia; J18.9 Pneumonia, unspecified organism; G92.8 Other toxic encephalopathy; E43 Unspecified severe protein-calorie malnutrition; J69.0 Pneumonitis due to inhalation of food and vomit; N17.9 Acute kidney failure, unspecified; J44.0 Chronic obstructive pulmonary disease with (acute) lower respiratory infection; Z68.1 Body mass index [BMI] 19.9 or less, adult; Z51.5 Encounter for palliative care; R65.20 Severe sepsis without septic shock; R62.7 Adult failure to thrive; Z20.822 Contact with and (suspected) exposure to COVID-19; E11.51 Type 2 diabetes mellitus with diabetic peripheral angiopathy without gangrene; E86.0 Dehydration; F15.10 Other stimulant abuse, uncomplicated; Z59.02 Unsheltered homelessness; Z91.14 Patient's other noncompliance with medication regimen; Z89.512 Acquired absence of left leg below knee; Z90.89 Acquired absence of other organs; Z89.421 Acquired absence of other right toe(s); Z88.0 Allergy status to penicillin; Z79.4 Long term (current) use of insulin; Z79.899 Other long term (current) drug therapy
CPT/HCPCS: 0241U; 31720; 36415; 51701; 71045; 74230; 80048; 80053; 81001; 82010; 82803; 82947; 83605; 83735; 83880; 83930; 84100; 84132; 84145; 84484; 85025; 85027; 87040; 87086; 92526; 92610; 92611; 93005; 93010; 93926; 94640; 94664; 94760; 96372-59; 96374-59; 96375-59; 99285-25; A9270; G0480; J0696; J1650; J1815; J2060; J2270; J3010; J7030; J7120

== ENCOUNTER 2022-09-11 00:31 | Emergency (ER) | payer MEDICARE, OTHER ==
[~2022-09-11] VITALS: Ht 162.6 cm; Wt 56.7 kg
[~2022-09-11 00:31] MED LIST changes: +Lopressor 50 mg50 MG PO; +SIME80CH PO; +ZOLP5 PO
[2022-09-11 02:10] LABS: BASOPHILS ABSOLUTE AUTO 0.02 K/mm3 (0.00-0.23); BASOPHILS PERCENT AUTO 0 % (0-2); EOSINOPHILS ABSOLUTE AUTO 0.49 K/mm3 (0.00-0.68); EOSINOPHILS PERCENT AUTO 6 % (0-6); Hematocrit 38.3 % (37.0-53.0); Hemoglobin 12.9 g/dL (13.5-17.5); IMMATURE GRAN ABSOLUTE AUTO 0.02 K/mm3 (0.00-0.10); IMMATURE GRAN PERCENT AUTO 0 % (0-1); LYMPHOCYTES ABSOLUTE AUTO 1.58 K/mm3 (0.84-5.20); LYMPHOCYTES PERCENT AUTO 20 % (21-46); MONOCYTES ABSOLUTE AUTO 0.63 K/mm3 (0.16-1.47); MONOCYTES PERCENT AUTO 8 % (4-13); Mean Corpuscular HGB 30.4 pg (26.0-34.0); Mean Corpuscular HGB Conc 33.7 g/dL (31.5-36.5); Mean Corpuscular Volume 90 fL (80-100); NEUTROPHILS ABSOLUTE AUTO 5.36 K/mm3 (1.96-9.15); NEUTROPHILS PERCENT AUTO 66 % (41-73); Platelet Count 222 K/mm3 (150-400); RDW Coefficient Variation 14.9 % (11.7-14.2); RDW Standard Deviation 49.9 fL (35.1-46.3); Red Blood Cell Count 4.24 M/mm3 (4.30-5.90)
[2022-09-11 02:28] LABS: Alanine Aminotransfer (ALT/SGP 16 U/L (12-78); Albumin, Blood 3.2 g/dL (3.4-5.0); Albumin/Globulin Ratio 0.8 (0.8-1.8); Alk Phos 122 U/L (50-136); Anion Gap 6 mmol/L (6-16); Aspartate Aminotrans (AST/SGOT 4 U/L (12-37); Bilirubin, Total 0.3 mg/dL (0.1-1.0); Blood Urea Nitrogen 16 mg/dL (8-24); C-REACTIVE PROTEIN, EXT RANGE <0.290 mg/dL (0.000-0.300); CO2, Blood 29 mmol/L (21-32); Chloride, Blood 108 mmol/L (98-108); Creatinine, Blood 0.76 mg/dL (0.60-1.20); Globulin, Blood 3.8 g/dL (2.2-4.0); Glomerular Filtration Rate 100 (60-); Glucose, Blood 293 mg/dL (70-99); Potassium, Blood 4.6 mmol/L (3.5-5.5); Sodium, Blood 143 mmol/L (136-145)
== END 2022-09-11 05:00 | disposition home or self-care (01) ==
LOC: ER 00:31
PROVIDERS: Student in an Organized Health Care Education/Training Program
DX: M79.674 Pain in right toe(s) (principal); I10 Essential (primary) hypertension; E11.9 Type 2 diabetes mellitus without complications; J44.9 Chronic obstructive pulmonary disease, unspecified; F17.210 Nicotine dependence, cigarettes, uncomplicated; Z59.00 Homelessness unspecified; Z88.0 Allergy status to penicillin; Z91.030 Bee allergy status; Z79.899 Other long term (current) drug therapy; Z79.4 Long term (current) use of insulin
CPT/HCPCS: 36415; 73620; 80053; 85025; 85651; 86140

== ENCOUNTER 2023-10-19 12:24 | Inpatient (IN) | payer MEDICARE, OTHER ==
[~2023-10-19] VITALS: Ht 167.6 cm; Wt 60.9 kg
[2023-10-19] VITALS (31 sets, daily range): BP systolic 93–168; BP diastolic 53–142
[2023-10-19 12:44] LABS: Source, Urine Clean Catch
[2023-10-19 12:46] LABS: Base Excess Venous -6.9 mmol/L; PCO2 Venous 39.2 mmHg (38-42)
[2023-10-19 12:59] LABS: Hematocrit 50.1 % (37.0-53.0); Hemoglobin 15.1 g/dL (13.5-17.5); Mean Corpuscular HGB 30.1 pg (26.0-34.0); Mean Corpuscular HGB Conc 30.1 g/dL (31.5-36.5); Mean Corpuscular Volume 100 fL (80-100); Mean Platelet Volume 12.7 fL (9.1-12.4); Platelet Count 302 K/mm3 (150-400); RDW Coefficient Variation 13.2 % (11.7-14.2); RDW Standard Deviation 48.9 fL (35.1-46.3); Red Blood Cell Count 5.02 M/mm3 (4.30-5.90); White Blood Cell Count 23.68 K/mm3 (4.00-11.30)
[2023-10-19 13:06] LABS: Bilirubin, Urine Neg (Neg); Blood, Urine 2+ (Neg); Glucose Qualitative, Urine 4+ (Neg); Ketones, Urine 1+ (Neg); Leukocyte Esterase, Urine 2+ (Neg); Nitrite, Urine Neg (Neg); Protein, Urine 2+ (Neg); Specific Gravity, Urine 1.015 (1.003-1.022); Urobilinogen, Urine NORM (Normal)
[2023-10-19 13:15] LABS: Ethanol (Alcohol), Blood, Med <3 mg/dL
[2023-10-19 13:26] LABS: Alanine Aminotransfer (ALT/SGP 30 U/L (12-78); Albumin, Blood 2.7 g/dL (3.4-5.0); Albumin/Globulin Ratio 0.6 (0.8-1.8); Alk Phos 211 U/L (50-136); Anion Gap 15 mmol/L (6-16); Aspartate Aminotrans (AST/SGOT 25 U/L (12-37); Bilirubin, Total 0.5 mg/dL (0.1-1.0); Blood Urea Nitrogen 123 mg/dL (8-24); Bun/Creatinine Ratio 72.8 (12.0-20.0); CO2, Blood 19 mmol/L (21-32); Calcium, Blood 9.2 mg/dL (8.5-10.1); Chloride, Blood 109 mmol/L (98-108); Creatinine, Blood 1.69 mg/dL (0.60-1.20); Globulin, Blood 4.9 g/dL (2.2-4.0); Glomerular Filtration Rate 44 (60-); Glucose, Blood 1322 mg/dL (70-99); Potassium, Blood 5.2 mmol/L (3.5-5.5); Sodium, Blood 143 mmol/L (136-145); Total Protein, Blood 7.6 g/dL (6.4-8.2)
[2023-10-19 13:27] LABS: U Amphetamine Screen DETECTED; U Barbituate Screen Not Detected; U Benzodiazapine Screen Not Detected; U Buprenorphine Screen Not Detected; U Cannabinoids Screen Not Detected; U Cocaine Screen Not Detected; U Methadone Screen Not Detected; U Methamphetamine Screen DETECTED; U Opiates Screen Not Detected; U Oxycodone Screen Not Detected; U Phencyclidine Screen Not Detected
[2023-10-19 13:28] LABS: Appearance, Urine Hazy (Clear); Color, Urine Yellow (P-Yellow)
[2023-10-19 13:30] LABS: Hyaline Casts 0-2 /lpf (0-2); White Blood Cells, Urine 25-50 /hpf (0-5)
[2023-10-19 13:31] LABS: Bacteria Many /hpf; Red Blood Cells, Urine 0-2 /hpf (0-2); Squamous Epithelial Cells Few /hpf (Few)
[2023-10-19 13:34] LABS: BAND PERCENT MAN 5 % (0-8); BASOPHILS PERCENT MAN 0 % (0-2); EOSINOPHILS PERCENT MAN 0 % (0-6); LYMPHOCYTES ABSOLUTE MAN 0.47 K/mm3 (0.84-5.20); LYMPHOCYTES PERCENT MAN 2 % (21-46); MONOCYTES ABSOLUTE MAN 0.47 K/mm3 (0.16-1.47); MONOCYTES PERCENT MAN 2 % (4-13); NEUTROPHILS ABSOLUTE MAN 22.73 K/mm3 (1.96-9.15); SEG NEUTROPHILS PERCENT MAN 91 % (41-73); TOTAL CELLS COUNTED 100
[2023-10-19 13:42] LABS: Osmolality, Serum 441 mos/KG (275-300)
[2023-10-19 14:20] LABS: Glucose, Blood 1314 mg/dL (70-99)
[2023-10-19 16:28] LABS: Albumin, Blood 2.6 g/dL (3.4-5.0); Anion Gap 15 mmol/L (6-16); Blood Urea Nitrogen 118 mg/dL (8-24); Bun/Creatinine Ratio 76.6 (12.0-20.0); CO2, Blood 21 mmol/L (21-32); Calcium, Blood 8.3 mg/dL (8.5-10.1); Chloride, Blood 117 mmol/L (98-108); Creatinine, Blood 1.54 mg/dL (0.60-1.20); Glomerular Filtration Rate 49 (60-); Glucose, Blood 1147 mg/dL (70-99); Phosphorus, Blood 5.6 mg/dL (2.5-4.9); Potassium, Blood 4.5 mmol/L (3.5-5.5)
[2023-10-19 16:29] LABS: Sodium, Blood 153 mmol/L (136-145)
[2023-10-19 17:22] LABS: Glucose, Blood 1093 mg/dL (70-99)
--- NOTE | 2023-10-19 17:48 | NUR ---
PT ADMITTED TO ICU 12 AT 1640 FROM ER FOR HHS/AMS. PT ARRIVED AWAKE, CONFUSED, AND AGITATED/RESTLESS. UNABLE TO FOLLOW SIMPLE COMMANDS, UNABLE TO RE-DIRECT PT. PT CONTINUOUSLY PULLING AT LINES AND IV; ATTEMPTING TO PULL OUT IV AND REMOVE MONITORING LINES. BILAT WRIST RESTRAINTS PLACED. 2L BOLUSED IN ER, 3RD AND 4TH NS BOLUSED IN ICU. NS NOW AT 200CC/HR. INSULIN AT 6.8 IN ER AND PLACED AT 6UNITS/HR ON ARRIVAL TO ICU. GLUCOSE 1093 AND LACTIC ACID 3.[address] EPPS. PROTONIX IV ORDERED; PT HAS BLACK SUBSTANCE IN AND AROUND MOUTH, AND HAS BEEN DRY HEAVING INTERMIT. SINCE ADMIT; NO EMESIS. PT'S BOTTOM/COCCYX IS RED BUT BLANCHABLE. SCRATCH TO LEFT THIGH, SQUARE INDENT FROM CAP TO LEFT HIP/BOTTOM AREA. MULTIPLE SCATTERED SCRATCHES T/O. PT UNKEPT AND SOILED.
--- NOTE | 2023-10-19 18:01 | NUR ---
CODE STATUS DISCUSSION Spent a significant amount of time on the phone with pt's Any. She reports the pt was on hospice for approximately 6 months last year, but was discharged because his health greatly improved during that period. Any states she knows how bad of shape her is in, and she understands he is currently in ICU and unable to make his own decisions. When we discussed code status tonblanca, she was not ready to change it. He is currently FULL CODE by default, as we have no POLST or other document available stating his wishes. Any acknowledges that the patient has not been taking care of himself for many years, and this year things have gotten "much worse" she states, in terms of his overall health. She asks if we can talk again tomorrow, to give her time to "think about code status", and this is what we agreed to do. Update given to pt's bedside RN Angelica, and phone number corrected on pt's face sheet.
[2023-10-19 18:08] LABS: Glucose, Blood 978 mg/dL (70-99)
--- NOTE | 2023-10-19 18:40 | NUR ---
ATTEMPTED TO PROVIDE ORAL CARE; PT RESISTANT TO CARE, THRASHING HEAD FROM SIDE TO SIDE, KEPT MOUTH CLOSED, WOULD NOT OPEN FOR ORAL CARE. FACE WASHED; PT RESISTANT TO THIS WELL. PT HAS PERIODS OF SEVERE RESTLESSNESS/AGITATION FOLLOWED BY BRIEF PERIODS OF SLEEPING. INSULIN AT 3UNITS/HR. NS AT 200CC/HR. STAT BLOOD GLUCOSE ORDERED BS REMAINS >500.
[2023-10-19 19:16] LABS: Glucose, Blood 850 mg/dL (70-99)
--- NOTE | 2023-10-19 19:45 | NUR ---
PATIENT SLEEPING, AWAKENS TO SLIGHT STIMULI. WHEN AWAKE PULLING AT GOWN, HEART MONITOR, AND IV'S. APPEARS TO MAKE EYE CONTACT BUT UNABLE TO VERBALIZE WHY HE IS PULLING AT THINGS. ABLE TO SAY HE IS IN [place], BUT UNSURE OF WHERE HE IS OR DATE. PATIENT NOT CONSISTENT WITH ANSWERING QUESTIONS. LEFT BKA. FUNEZ IN PLACE DRAINING CLOUDY YELLOW WITH WHITE SEDIMENT URINE. INSULIN DRIP 3 UNITS/HR INFUSING. BILAT WRIST RESTRAINTS IN PLACE TO PROTECT LINES AND TUBES.
[2023-10-19 20:17] LABS: Magnesium, Blood 2.8 mg/dL (1.6-2.4)
[2023-10-19 20:23] LABS: Albumin, Blood 2.3 g/dL (3.4-5.0); Anion Gap 7 mmol/L (6-16); Blood Urea Nitrogen 111 mg/dL (8-24); Bun/Creatinine Ratio 77.6 (12.0-20.0); CO2, Blood 20 mmol/L (21-32); Calcium, Blood 8.2 mg/dL (8.5-10.1); Chloride, Blood 131 mmol/L (98-108); Creatinine, Blood 1.43 mg/dL (0.60-1.20); Glomerular Filtration Rate 54 (60-); Glucose, Blood 806 mg/dL (70-99); Phosphorus, Blood 3.2 mg/dL (2.5-4.9); Potassium, Blood 4.3 mmol/L (3.5-5.5); Sodium, Blood 158 mmol/L (136-145)
[2023-10-19 21:40] LABS: Glucose, Blood 741 mg/dL (70-99)
--- NOTE | 2023-10-19 22:43 | NUR ---
DOCTOR MIGNON NOTIFIED OF REPEAT CHEM AND INCREASED SODIUM LEVEL. IV FLUIDS CHANGED TO LR. INSULIN DRIP CONTINUES DUE TO GLUCOSE LEVEL DECREASING NICELY
[2023-10-19 22:55] LABS: Glucose, Blood 676 mg/dL (70-99)
[2023-10-19 23:32] LABS: Glucose, Blood 585 mg/dL (70-99)
[2023-10-20] VITALS (33 sets, daily range): BP systolic 78–142; BP diastolic 49–128
[2023-10-20 00:42] LABS: Magnesium, Blood 2.7 mg/dL (1.6-2.4)
[2023-10-20 00:51] LABS: Albumin, Blood 2.2 g/dL (3.4-5.0); Anion Gap 7 mmol/L (6-16); Blood Urea Nitrogen 105 mg/dL (8-24); Bun/Creatinine Ratio 79.5 (12.0-20.0); CO2, Blood 22 mmol/L (21-32); Calcium, Blood 7.8 mg/dL (8.5-10.1); Chloride, Blood 138 mmol/L (98-108); Creatinine, Blood 1.32 mg/dL (0.60-1.20); Glomerular Filtration Rate 59 (60-); Glucose, Blood 484 mg/dL (70-99); Phosphorus, Blood 2.8 mg/dL (2.5-4.9); Potassium, Blood 4.2 mmol/L (3.5-5.5); Sodium, Blood 167 mmol/L (136-145)
--- NOTE | 2023-10-20 01:40 | NUR ---
DOCTOR KATH NOTIFIED OF CONTINUED INCREASE OF SODIUM NOW 167. IV FLUIDS OFF. INSULIN DRIP CONTINUES.
[2023-10-20 03:47] LABS: Hematocrit 39.5 % (37.0-53.0); Hemoglobin 12.6 g/dL (13.5-17.5); Mean Corpuscular HGB 30.3 pg (26.0-34.0); Mean Corpuscular HGB Conc 31.9 g/dL (31.5-36.5); Mean Platelet Volume 11.8 fL (9.1-12.4); Platelet Count 225 K/mm3 (150-400); RDW Coefficient Variation 13.4 % (11.7-14.2); RDW Standard Deviation 46.4 fL (35.1-46.3); Red Blood Cell Count 4.16 M/mm3 (4.30-5.90); White Blood Cell Count 15.01 K/mm3 (4.00-11.30)
[2023-10-20 03:54] LABS: Mean Corpuscular Volume 95 fL (80-100)
[2023-10-20 04:06] LABS: Magnesium, Blood 2.8 mg/dL (1.6-2.4)
[2023-10-20 04:16] LABS: Bun/Creatinine Ratio 74.1 (12.0-20.0); Calcium, Blood 8.1 mg/dL (8.5-10.1); Creatinine, Blood 1.39 mg/dL (0.60-1.20); Phosphorus, Blood 2.9 mg/dL (2.5-4.9); Potassium, Blood 4.1 mmol/L (3.5-5.5)
--- NOTE | 2023-10-20 04:35 | NUR ---
DOCTOR KATH NOTIFIED OF CONTINUED INCREASE IN SODIUM LEVEL. CHANGE TKO TO 1/2 NS. NOT WANTING TO START D5W UNTIL GLUCOSE LESS THAN 250. INSULIN 3 UNITS/HR CONTINUES
[2023-10-20 04:52] LABS: BAND PERCENT MAN 27 % (0-8); BASOPHILS PERCENT MAN 0 % (0-2); EOSINOPHILS PERCENT MAN 0 % (0-6); LYMPHOCYTES ABSOLUTE MAN 1.35 K/mm3 (0.84-5.20); LYMPHOCYTES PERCENT MAN 9 % (21-46); MONOCYTES ABSOLUTE MAN 1.05 K/mm3 (0.16-1.47); MONOCYTES PERCENT MAN 7 % (4-13); MYELOCYTE ABSOLUTE MAN 0.15 K/mm3 (0.00-0.00); MYELOCYTE PERCENT MAN 1 % (0-0); NEUTROPHILS ABSOLUTE MAN 12.45 K/mm3 (1.96-9.15); SEG NEUTROPHILS PERCENT MAN 56 % (41-73); TOTAL CELLS COUNTED 100
--- NOTE | 2023-10-20 06:00 | NUR ---
SUMMARY PATIENT CONTINUES TO BE CONFUSED, MOANING FREQUENTLY. AT TIMES ABLE TO ANSWER SIMPLE QUESTIONS, WHEN ASKED WHAT HE NEEDS HE USUALLY SAYS "I DON'T KNOW" CONTINUES TO BE ABLE TO VERBALIZE THAT HE IS IN [place]. ASSISTING WITH REPOSITIONING AT TIMES, BUT WILL NOT STAY ON HIS SIDE FOR VERY LONG. DUE TO HIGH SODIUM LEVELS IV FLUIDS CHANGED TO 1/2 NS AT 20 CC/HR. PATIENT HAVING OCCASIONAL MOIST COUGH, ABLE TO GET A MOD AMT OF THICK BROWN, TO WHITE SPUTUM. HAVING DRY-HEAVES AFTER DEEP SUCTION AND ORAL CARE, ZOFRAN IV GIVEN. RESP RATE CONTINUES IN THE 30'S. ON 2L/NC DUE TO BIOX DOWN TO 87-88% AT TIMES. BIOX 91-93% ON 2L/NC. INSULIN DRIP CONTINUES AT 3 UNITS/HR T/O NIGHT WITH GLUCOSE NOW 312.
[2023-10-20 08:03] LABS: Bun/Creatinine Ratio 70.9 (12.0-20.0); Calcium, Blood 8.4 mg/dL (8.5-10.1); Creatinine, Blood 1.41 mg/dL (0.60-1.20); Potassium, Blood 3.8 mmol/L (3.5-5.5)
--- NOTE | 2023-10-20 08:10 | NUR ---
ASSUMED CARE: REPORT RECEIVED FROM KELSEY Petty RN. ASSUMED CARE OF THIS PT AT APPROX 0700. ON ASSESSMENT, THE PT IS RESTING QUIETLY. WHEN AWAKE, THE PT IS UNABLE TO FOLLOW DIRECTIONS CONSISTENTLY & GROANS WHEN ASKED QUESTIONS. LOOKS TOWARD THIS RN SAYING HIS NAME, CIERA. LS DIM/ TIGHT T/O, PT ON 2L NC W/ O2 SATS > 92% ON AVG, DOES NOT WEAR HOME O2. MONITOR SHOWS SR W/ HR 90s, BP STABLE W/ MAP > 65. PT NPO R/T AMS, NO BM SINCE ADMIT. TEMP FUNEZ PATENT/ DRAINING CLOUDY YELLOW URINE - IN PLACE FOR STRICT I&O MONITORING. SKIN CONDITION OVERALL FRAGILE, INTACT. MULTIPLE AREAS OF SCRATCHES TO BLE. 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 Q2H REPOSITIONING TO MAINTAIN SKIN ITEGRITY. WILL CONTINUE TO MONITOR & UPDATE NEEDED.
[2023-10-20 12:22] LABS: Calcium, Blood 8.5 mg/dL (8.5-10.1); Creatinine, Blood 1.43 mg/dL (0.60-1.20); Potassium, Blood 3.8 mmol/L (3.5-5.5)
--- NOTE | 2023-10-20 12:39 | NUR ---
UPDATE: THIS RN HAS CONTACTED DR HALL W/ PT's INCREASED SODIUM TO 173 DESPITE D5W INFUSION & BOLUS PER EMAR. SHE STS TO CONSULT DR Solano, MANAGER CLEANING, AT THIS TIME. DR Solano HAS BEEN NOTIFIED BY THIS RN. HE STS THAT HE WILL REVIEW THE PT's CHART & PLACE ORDERS, WILL COME TO EVALUTATE THE PT THIS AFTERNOON. NO OTHER CHANGES AT THIS TIME.
[2023-10-20 15:07] LABS: Albumin, Blood 2.2 g/dL (3.4-5.0); Anion Gap 3 mmol/L (6-16); Blood Urea Nitrogen 92 mg/dL (8-24); Bun/Creatinine Ratio 67.2 (12.0-20.0); CO2, Blood 25 mmol/L (21-32); Calcium, Blood 8.4 mg/dL (8.5-10.1); Chloride, Blood 141 mmol/L (98-108); Creatinine, Blood 1.37 mg/dL (0.60-1.20); Glomerular Filtration Rate 57 (60-); Glucose, Blood 194 mg/dL (70-99); Phosphorus, Blood 2.4 mg/dL (2.5-4.9); Potassium, Blood 3.3 mmol/L (3.5-5.5); Sodium, Blood 169 mmol/L (136-145)
--- NOTE | 2023-10-20 18:36 | NUR ---
SHIFT SUMMARY: NO ACUTE CHANGES SINCE PRIOR UPDATES. THE PT HAS BEEN SLIGHTLY MORE ORIENTED THIS EVENING, TELLING THIS RN HIS BIRTHDAY & ASKING CLEARLY FOR WATER. HE DOES NOT KNOW TIME/ DATE/ LOCATION OR CIRCUMSTANCES SURROUNDING ADMISSION. LS TIGHT, PT ON 2L NC W/ O2 SATS > 9@5. MONITOR SHOWS SR W/ HR 90s, BP STABLE. NPO R/T AMS. PT FAILED BEDSIDE SWALLOW EVAL THIS EVENING, COUGHING AFTER SMALL SPOONFUL OF WATER. TEMP FUNEZ PATENT/ DRAINING YELLOW URINE - IN PLACE FOR STRICT I&O MONITORING. SKIN CONDITION OVERALL FRAGILE, ATTEMPTS TO REPOSITION OCCURED Q2H THIS SHIFT ALTHOUGH PT PROMPTLY REMOVES PILLOW ONCE ROLLED TO SIDE, DESPITE WEB CONTENT DIRECTOR RESTRAINTS IN PLACE TO PREVENT PULLING AT LINES/ TUBES. WILL CONTINUE TO MONITOR & REPORT OFF TO ONCOMING RN.
[2023-10-20 18:46] LABS: Albumin, Blood 2.2 g/dL (3.4-5.0); Anion Gap 2 mmol/L (6-16); Blood Urea Nitrogen 83 mg/dL (8-24); Bun/Creatinine Ratio 61.9 (12.0-20.0); CO2, Blood 26 mmol/L (21-32); Calcium, Blood 8.3 mg/dL (8.5-10.1); Chloride, Blood 141 mmol/L (98-108); Creatinine, Blood 1.34 mg/dL (0.60-1.20); Glomerular Filtration Rate 58 (60-); Glucose, Blood 234 mg/dL (70-99); Phosphorus, Blood 2.4 mg/dL (2.5-4.9); Potassium, Blood 3.2 mmol/L (3.5-5.5); Sodium, Blood 169 mmol/L (136-145)
--- NOTE | 2023-10-20 22:54 | NUR ---
AT 1930 PATIENT RESTLESS AND UNABLE TO CONSOLE, VERBALIZED THAT HE WAS COLD. NO RELIEF WITH WARM BLANKET. 1/2 HR LATER FOUND CHEST AND BLANKET WET FROM IV IN RIGHT HAND LEAKING, AND INFILTRATED. SITE DC'D AND LINEN CHANGED. PATIENT CONTINUES TO BE ANXIOUS AND RESTLESS. HARSH MOIST COUGH, ABLE TO SUCTION MOD AMT OF THICK DARK SPUTUM FROM BACK OF THROAT. CONTINUES ON 2L/NC. PATIENT NOW MORE RELAXED, SLEEPING FOR SHORT TIME, AWAKENS AND IS MOANING, USING CALL LIGHT, VERBALIZED THAT HE IS NAUSEATED, ZOFRAN GIVEN.
[2023-10-20 23:44] LABS: Anion Gap 3 mmol/L (6-16); Blood Urea Nitrogen 72 mg/dL (8-24); Bun/Creatinine Ratio 57.1 (12.0-20.0); CO2, Blood 24 mmol/L (21-32); Calcium, Blood 7.6 mg/dL (8.5-10.1); Chloride, Blood 142 mmol/L (98-108); Creatinine, Blood 1.26 mg/dL (0.60-1.20); Glomerular Filtration Rate 63 (60-); Glucose, Blood 227 mg/dL (70-99); Phosphorus, Blood 2.4 mg/dL (2.5-4.9); Potassium, Blood 3.5 mmol/L (3.5-5.5); Sodium, Blood 169 mmol/L (136-145)
[2023-10-21] VITALS (25 sets, daily range): BP systolic 97–141; BP diastolic 51–84
--- NOTE | 2023-10-21 00:04 | NUR ---
DR GERBER NOTIFIED OF REPEAT LABS, SEE NEW ORDERS
[2023-10-21 02:33] LABS: Hematocrit 34.8 % (37.0-53.0); Hemoglobin 11.2 g/dL (13.5-17.5); Mean Corpuscular HGB 30.7 pg (26.0-34.0); Mean Corpuscular HGB Conc 32.2 g/dL (31.5-36.5); Mean Corpuscular Volume 95 fL (80-100); Mean Platelet Volume 11.9 fL (9.1-12.4); Platelet Count 152 K/mm3 (150-400); RDW Coefficient Variation 14.1 % (11.7-14.2); RDW Standard Deviation 48.8 fL (35.1-46.3); Red Blood Cell Count 3.65 M/mm3 (4.30-5.90); White Blood Cell Count 13.45 K/mm3 (4.00-11.30)
[2023-10-21 02:50] LABS: Magnesium, Blood 2.4 mg/dL (1.6-2.4)
[2023-10-21 03:01] LABS: BAND PERCENT MAN 20 % (0-8); BASOPHILS PERCENT MAN 0 % (0-2); EOSINOPHILS ABSOLUTE MAN 0.26 K/mm3 (0.00-0.68); EOSINOPHILS PERCENT MAN 2 % (0-6); LYMPHOCYTES % ATYPICAL MANUAL 1 % (0-0); LYMPHOCYTES ABSOLUTE MAN 2.15 K/mm3 (0.84-5.20); LYMPHOCYTES PERCENT MAN 15 % (21-46); MONOCYTES ABSOLUTE MAN 0.26 K/mm3 (0.16-1.47); MONOCYTES PERCENT MAN 2 % (4-13); NEUTROPHILS ABSOLUTE MAN 10.76 K/mm3 (1.96-9.15); SEG NEUTROPHILS PERCENT MAN 60 % (41-73); TOTAL CELLS COUNTED 100
[2023-10-21 03:06] LABS: Anion Gap 3 mmol/L (6-16); Blood Urea Nitrogen 62 mg/dL (8-24); Bun/Creatinine Ratio 50.8 (12.0-20.0); CO2, Blood 25 mmol/L (21-32); Calcium, Blood 7.8 mg/dL (8.5-10.1); Chloride, Blood 141 mmol/L (98-108); Creatinine, Blood 1.22 mg/dL (0.60-1.20); Glomerular Filtration Rate 65 (60-); Glucose, Blood 187 mg/dL (70-99); Phosphorus, Blood 1.6 mg/dL (2.5-4.9); Potassium, Blood 3.6 mmol/L (3.5-5.5); Sodium, Blood 169 mmol/L (136-145)
--- NOTE | 2023-10-21 05:51 | NUR ---
SUMMARY SODIUM LEVELS CONTINUE TO BE HIGH DOCTOR BUZZ FOLLOWING T/O NIGHT. CONTINUE ON INSULIN DRIP NOW AT 5 UNITS/HR, TO MAINTAIN GLUCOSE LEVELS. PATIENT CONTINUES TO BE CONFUSED BUT IS ABLE TO REMEMBER THAT HE IS IN [place] AND IN THE HOSPITAL, THINKING THAT IT IS APRIL. PATIENT CONTINUES TO BE IMPULSIVE AND RANDOMLY YELLING OUT OR MOANING. AT TIMES WHEN ASKED WHY HE IS MOANING HE WILL VERBALIZE "I DON'T KNOW" . FREQUENT ORAL CARE CONTINUES, PATIENT ABLE TO ASSIST WITH USING SUCTION SWABS AT TIMES. DEEP ORAL SUCTION DONE 2-3 TIMES T/O NIGHT OBTAINING THICK BROWN SPUTUM. C/O NAUSEA ONCE EARLY IN THE NIGHT RELIEF WITH ZOFRAN.
[2023-10-21 06:50] LABS: Albumin, Blood 1.9 g/dL (3.4-5.0); Anion Gap 4 mmol/L (6-16); Blood Urea Nitrogen 55 mg/dL (8-24); Bun/Creatinine Ratio 42.3 (12.0-20.0); CO2, Blood 24 mmol/L (21-32); Calcium, Blood 7.7 mg/dL (8.5-10.1); Chloride, Blood 139 mmol/L (98-108); Glomerular Filtration Rate 61 (60-); Glucose, Blood 153 mg/dL (70-99); Phosphorus, Blood 2.3 mg/dL (2.5-4.9); Potassium, Blood 3.7 mmol/L (3.5-5.5); Sodium, Blood 167 mmol/L (136-145)
--- NOTE | 2023-10-21 09:10 | NUR ---
ASSUMED CARE: REPORT RECEIVED FROM KELSEY Petty RN. ASSUMED CARE OF THIS PT AT APPROX 0700. ON ASSESSMENT, THE PT IS AWAKE, A&O TO SELF, FOLLOWS SOME DIRECTIONS. KEEPS ASKING FOR "HELP" & STS "GET ME OUT OF HERE." WHEN REMINDED THAT HE IS IN THE HOSPITAL, HE SAYS "THAT SOUNDS RIGHT." LS DIM IN BASES, PT ON 2L NC W/ O2 SATS > 92%. MONITOR SHOWS SR W/ HR 80-90s AT START OF SHIFT, CONVERSION TO AFIB AT APPROX 0750 W/ HR 110-120s, BP REMAINS STABLE - WILL NOTIFY PROVIDER. TEMP FUNEZ PATENT/ DRAINING YELLOW URINE, TEMP SENSOR NOT WORKING & NOW DISCONNECTED - IN PLACE FOR STRICT I&O MEASUREMENTS. SKIN CONDITION OVERALL INTACT, FRAGILE, NUMEROUS SCRATCHES & ABRASIONS TO BLE - PHOTOS IN CHART. WILL CONTINUE TO MONITOR & UPDATE NEEDED.
--- NOTE | 2023-10-21 10:45 | NUR ---
DR HALL: PROVIDER AT BEDSIDE THIS AM TO EVAL PT. DISCUSSED PT's REQUEST FOR CIGARETTE's WHILE STILL CONFUSED. NICOTINE PATCH ORDERED. ALSO NOTIFIED PROVIDER OF PT's CONVERSION FROM SR TO AFIB THIS AM, PRN IVP DOSE OF LOPRESSOR ORDERED. PT's PLT COUNT HAS DECREASED BY HALF SINCE ADMIT, REVIEWED W/ PROVIDER & BELIEVED TO BE PARTIALLY DILUTIONAL, OKAY TO GIVE AM DOSE LOVENOX. SPEECH EVAL ORDERED FOR FAILED BEDSIDE SWALLOW TEST AFTER 2ND TEASPOON OF WATER ADMINISTERED. PT CONTINUES ON INSULIN DRIP, NO OTHER CHANGES AT THIS TIME.
[2023-10-21 10:58] LABS: Albumin, Blood 1.9 g/dL (3.4-5.0); Anion Gap 3 mmol/L (6-16); Blood Urea Nitrogen 48 mg/dL (8-24); Bun/Creatinine Ratio 37.5 (12.0-20.0); CO2, Blood 23 mmol/L (21-32); Calcium, Blood 7.6 mg/dL (8.5-10.1); Chloride, Blood 138 mmol/L (98-108); Creatinine, Blood 1.28 mg/dL (0.60-1.20); Glomerular Filtration Rate 62 (60-); Glucose, Blood 134 mg/dL (70-99); Phosphorus, Blood 2.5 mg/dL (2.5-4.9); Potassium, Blood 4.1 mmol/L (3.5-5.5); Sodium, Blood 164 mmol/L (136-145)
--- NOTE | 2023-10-21 13:44 | NUR ---
Spiritual Care Attempted. Pt. was awake in bed when I entered the room on a cold call visit. Pt. initially displayed evidence of tracking with my questions and would respond with semi-intelligible grunts. When Questions about lottie are raised Pt. ceased responding. Will remain available.
[2023-10-21 14:45] LABS: Albumin, Blood 1.8 g/dL (3.4-5.0); Anion Gap 5 mmol/L (6-16); Blood Urea Nitrogen 46 mg/dL (8-24); Bun/Creatinine Ratio 35.4 (12.0-20.0); CO2, Blood 21 mmol/L (21-32); Calcium, Blood 7.3 mg/dL (8.5-10.1); Chloride, Blood 134 mmol/L (98-108); Glomerular Filtration Rate 61 (60-); Glucose, Blood 268 mg/dL (70-99); Phosphorus, Blood 2.5 mg/dL (2.5-4.9); Potassium, Blood 3.8 mmol/L (3.5-5.5); Sodium, Blood 160 mmol/L (136-145)
--- NOTE | 2023-10-21 18:10 | NUR ---
SHIFT SUMMARY: NO ACUTE CHANGES SINCE PRIOR UPDATES. PT's MENTATION HAS CONTINUED TO IMPROVE T/O THE SHIFT. HE CONTINUES TO GROAN & CALL OUT BUT IS ABLE TO CLEARLY MAKE HIS NEEDS KNOWN & ASK FOR CARE MEASURES MORE APPROPRIATELY AT THAT TIME. LS DIM IN BASES, PT CURRENTLY ON RA W/ O2 SATS > 92%. MONITOR SHOWS AFIB W/ HR 100-110s, BP STABLE. PT REMAINS NPO, HAS TOLERATED FREQUENT ORAL CARE & DRY MOUTH GEL APPLICATION. ST EVAL SCHEDULED FOR TOMORROW. TEMP FUNEZ PATENT/ DRAINING YELLOW URINE W/ ADEQUATE OUTPUT THIS SHIFT. SKIN CONDITION OVERALL INTACT, FRAGILE. Q2H REPOSITIONING COMPLETED THIS SHIFT ALTHOUGH PT FREQUENTLY ADJUSTS SELF IN BED & OFTEN REMOVES PILLOWS AFTER PLACED BY NURSING STAFF. WILL CONTINUE TO MONITOR & REPORT OFF TO ONCOMING RN.
--- NOTE | 2023-10-21 18:21 | NUR ---
Pt known to this department. He is more alert today and being seen by nephrology. Did not engage today. Pt kps score is 30%. Will see tomorrow if he improves. Pt would be best served by returning to [facility] care. He is displaying some air hunger and burden of ventilation. His worsening renal funtion and multisystem illness can cause extrodinary suffering for him and his family. Will review again tomorrow with physcians and family.
--- NOTE | 2023-10-21 19:55 | NUR ---
PATIENT RESTING IN BED, RESTLESS, THINKING HE IS IN A "BUGGY" AND THAT IT NEEDS TO BE CHARGED. PATIENT ABLE TO REMEMBER THAT HE IS IN THE HOSPITAL, MONTH AND DATE. OCCASIONAL MOIST COUGH WITH THICK INFANTE SPUTUM, PATIENT USING ORAL SUCTION TO REMOVE SPUTUM. CONTINUING TO MONITOR LABS AND I&O CLOSELY, D5 WITH POTASSIUM CONTINUES
[2023-10-21 21:22] LABS: Albumin, Blood 1.8 g/dL (3.4-5.0); Anion Gap 5 mmol/L (6-16); Blood Urea Nitrogen 39 mg/dL (8-24); Bun/Creatinine Ratio 32.8 (12.0-20.0); CO2, Blood 21 mmol/L (21-32); Calcium, Blood 7.3 mg/dL (8.5-10.1); Chloride, Blood 132 mmol/L (98-108); Creatinine, Blood 1.19 mg/dL (0.60-1.20); Glomerular Filtration Rate 67 (60-); Glucose, Blood 322 mg/dL (70-99); Phosphorus, Blood 1.4 mg/dL (2.5-4.9); Potassium, Blood 4.2 mmol/L (3.5-5.5); Sodium, Blood 158 mmol/L (136-145)
[2023-10-22 03:14] VITALS: BP 136/62
--- NOTE | 2023-10-22 06:09 | NUR ---
SUMMARY PATIENT AWAKE AND RESTLESS T/O NIGHT. REMAINS NPO, PLAN FOR SWALLOW EVAL TODAY, REQUIRING FREQUENT ORAL CARE WITH TOOTHETTES AND SUCTION SWABS. PATIENT ABLE TO VERBALIZE THAT HE IS IN [facility], MONTH AND YEAR, YET IS VERY IMPULSIVE AND FREQUENTLY TRYING TO GET THE HOSPITAL BED TO DRIVE LIKE A "BUGGY" AND THIS MORNING ATTEMPTING TO GET OUT OF BED TO "GO GET IN THAT RED BUGGY" BECOMING ANGRY WHEN REMINDING THAT HE IS IN THE HOSPITAL AND WE DON'T HAVE BUGGIES TO RIDE IN "I KNOW THAT" PATIENT CONTINUES ON D5 WITH 30 MEQ KCL @ 150/HR FOR ELEVATED SODIUM LEVELS, WITH NEXT CHEM AT 0800. GLUCOSE REMAINS IN THE 300'S AT 0000 SLIDING SCALE INCREASED TO HIGH SLIDING SCALE.
[2023-10-22 07:42] VITALS: BP 139/60
[2023-10-22 08:44] LABS: Albumin, Blood 1.7 g/dL (3.4-5.0); Anion Gap 5 mmol/L (6-16); Blood Urea Nitrogen 29 mg/dL (8-24); Bun/Creatinine Ratio 24.8 (12.0-20.0); CO2, Blood 20 mmol/L (21-32); Calcium, Blood 7.4 mg/dL (8.5-10.1); Chloride, Blood 129 mmol/L (98-108); Creatinine, Blood 1.17 mg/dL (0.60-1.20); Glomerular Filtration Rate 69 (60-); Glucose, Blood 342 mg/dL (70-99); Potassium, Blood 4.2 mmol/L (3.5-5.5); Sodium, Blood 154 mmol/L (136-145)
[2023-10-22 08:46] LABS: Phosphorus, Blood 0.9 mg/dL (2.5-4.9)
[2023-10-22 10:37] LABS: AMPHETAMINE,URN,QUANT 695 ng/mL; MDA,URN,QUANT <200 ng/mL; MDEA,URN,QUANT <200 ng/mL; MDMA,URN,QUANT <200 ng/mL; METHAMPHETAMINE,URN,QUANT 5762 ng/mL; PHENTERMINE,URN,QUANT <200 ng/mL
[2023-10-22 14:42] LABS: Albumin, Blood 1.6 g/dL (3.4-5.0); Anion Gap 4 mmol/L (6-16); Blood Urea Nitrogen 25 mg/dL (8-24); Bun/Creatinine Ratio 21.6 (12.0-20.0); CO2, Blood 21 mmol/L (21-32); Calcium, Blood 7.5 mg/dL (8.5-10.1); Chloride, Blood 125 mmol/L (98-108); Creatinine, Blood 1.16 mg/dL (0.60-1.20); Glomerular Filtration Rate 69 (60-); Glucose, Blood 358 mg/dL (70-99); Phosphorus, Blood 2.3 mg/dL (2.5-4.9); Potassium, Blood 3.8 mmol/L (3.5-5.5); Sodium, Blood 150 mmol/L (136-145)
--- NOTE | 2023-10-22 15:43 | NUR ---
Spoke with Primary RN Angelina and discussed case. Pt appears to be improving. Pt resting in bed with his eyes closed upon arrival. Pt wakes to gentle verbal stimuli. Offered brief supportive visit and reviewed plan of care. Pt appears weak and lethargic. Ended visit to allow Pt to rest. Palliative Care will remain available
--- NOTE | 2023-10-22 17:41 | NUR ---
SUMMARY PT RESTING IN BED. A/O TO PERSON, PLACE, AND DATE. PT WILL USE CALL LIGHT IF HE CAN FIND IT. IF HE CAN'T FIND CALL LIGHT HE WILL YELL OUT. ANXIOUS AT TIMES BUT EASILY REDIRECTABLE TODAY. MOVING SELF IN BED INDEP. ORDER PLACED FOR PT/OT BUT THEY DID NOT EVAL HIM TODAY. SPEECH THERAPY EVAL'D PT AND HE DID NOT PASS SWALLOW EVAL. USING SUCTION SWABS FOR MOISTURE. PALLIATIVE CARE IS GOING TO SPEAK WITH AND PT TOMORROW ABOUT POSSIBLE NEED FOR PEG TUBE OR WHATEVER PT'S WISHES WILL BE. REMAINS ON D5 IVF FOR INCREASED NA LEVELS. LEVELS HAVE IMPROVED TODAY. GLUCOSE REMAINS ELEVATED, LONG ACTING ADDED TO REGIMEN TODAY. DEE DEE REMOVED NOW THAT PT IS OFF OF DESMOPRESSIN. PT WILL BE TRANSFERING TO ROOM 359 WHEN THE ROOM IS READY.
[2023-10-22 18:03] VITALS: BP 114/66
[2023-10-22 22:34] LABS: Albumin, Blood 1.6 g/dL (3.4-5.0); Anion Gap 4 mmol/L (6-16); Blood Urea Nitrogen 20 mg/dL (8-24); Bun/Creatinine Ratio 18.5 (12.0-20.0); CO2, Blood 20 mmol/L (21-32); Calcium, Blood 7.1 mg/dL (8.5-10.1); Chloride, Blood 124 mmol/L (98-108); Creatinine, Blood 1.08 mg/dL (0.60-1.20); Glomerular Filtration Rate 76 (60-); Glucose, Blood 310 mg/dL (70-99); Phosphorus, Blood 1.8 mg/dL (2.5-4.9); Potassium, Blood 3.8 mmol/L (3.5-5.5); Sodium, Blood 148 mmol/L (136-145)
--- NOTE | 2023-10-23 04:38 | NUR ---
PT A&O x3, VSS, AFEBRILE. NO BEHAVIORS OVERNIGHT. PT HAD A SITTER AT, MONITORING OUTSIDE OF PT's DOOR. PRN PO MELATONIN 3MG GIVEN, PT WAS RESTLESS. BLOOD SUGAR CHECKS Q4. OVERNIGHT PT's CBG CHECKS 291, 264 AND 225. NO C/O PAIN OR DISCOMFORT. NO NEED FOR SITTER FOR TOMORROW DAY SHIFT OR NIGHT. CALL LIGHT WITHIN REACH, WCTM.
[2023-10-23 08:35] LABS: Hematocrit 27.4 % (37.0-53.0); Hemoglobin 8.9 g/dL (13.5-17.5); Mean Corpuscular HGB 30.3 pg (26.0-34.0); Mean Corpuscular HGB Conc 32.5 g/dL (31.5-36.5); Mean Corpuscular Volume 93 fL (80-100); Mean Platelet Volume 11.9 fL (9.1-12.4); NRBC ABSOLUTE 0.02 K/mm3 (0.00-0.02); NRBC Auto 0.2 /100 WBC (0.0-0.2); Platelet Count 106 K/mm3 (150-400); RDW Coefficient Variation 13.4 % (11.7-14.2); RDW Standard Deviation 45.6 fL (35.1-46.3); Red Blood Cell Count 2.94 M/mm3 (4.30-5.90); White Blood Cell Count 8.78 K/mm3 (4.00-11.30)
[2023-10-23 08:58] LABS: Albumin, Blood 1.4 g/dL (3.4-5.0); Anion Gap 6 mmol/L (6-16); Blood Urea Nitrogen 17 mg/dL (8-24); Bun/Creatinine Ratio 17.1 (12.0-20.0); CO2, Blood 19 mmol/L (21-32); Calcium, Blood 6.8 mg/dL (8.5-10.1); Chloride, Blood 121 mmol/L (98-108); Glomerular Filtration Rate 83 (60-); Glucose, Blood 221 mg/dL (70-99); Magnesium, Blood 1.9 mg/dL (1.6-2.4); Phosphorus, Blood 1.6 mg/dL (2.5-4.9); Potassium, Blood 3.5 mmol/L (3.5-5.5); Sodium, Blood 146 mmol/L (136-145)
[2023-10-23 09:34] LABS: BAND PERCENT MAN 7 % (0-8); BASOPHILS ABSOLUTE MAN 0.08 K/mm3 (0.00-0.23); BASOPHILS PERCENT MAN 1 % (0-2); EOSINOPHILS ABSOLUTE MAN 0.43 K/mm3 (0.00-0.68); EOSINOPHILS PERCENT MAN 5 % (0-6); LYMPHOCYTES ABSOLUTE MAN 1.05 K/mm3 (0.84-5.20); LYMPHOCYTES PERCENT MAN 12 % (21-46); METAMYELOCYTE ABSOLUTE MAN 0.08 K/mm3 (0.00-0.00); METAMYELOCYTE PERCENT MAN 1 % (0-0); MONOCYTES ABSOLUTE MAN 0.35 K/mm3 (0.16-1.47); MONOCYTES PERCENT MAN 4 % (4-13); MYELOCYTE ABSOLUTE MAN 0.08 K/mm3 (0.00-0.00); MYELOCYTE PERCENT MAN 1 % (0-0); NEUTROPHILS ABSOLUTE MAN 6.67 K/mm3 (1.96-9.15); SEG NEUTROPHILS PERCENT MAN 69 % (41-73); TOTAL CELLS COUNTED 100
[2023-10-23 09:53] VITALS: BP 113/59
[2023-10-23 16:11] VITALS: BP 107/59
--- NOTE | 2023-10-23 18:01 | NUR ---
PATIENT A/OX2-3 THS SHIFT. CALM AND COOPERATIVE WITH CARE AND USING CALL LIGHT APPROPRIATELY FOR ASSISTANCE. VSS, ON RA. TRANSITIONED TO PUREE DIET TODAY WITH HONEY THICK LIQUIDS AND TOLERATED WELL FOR DINNER. WORKED WITH PT/OT TODAY. ABLE TO TRANSFER FROM BED TO CHAIR WITH FWW, GB AND 2 ASSIST. CONTINENT OF BOWEL AND BLADDER THIS SHIFT. FALL PRECAUTIONS IN PLACE.
[2023-10-23 19:59] VITALS: BP 117/70
[2023-10-24 03:00] VITALS: BP 101/46
[2023-10-24 03:02] VITALS: BP 111/66
--- NOTE | 2023-10-24 04:49 | NUR ---
1900:Assumed care of pt. Report received from day shift RN. Pt is found laying in bed on his back. 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 BUE midline IV. Fluids running as ordered to RUE thoughout shift without issue. Pt required prn pain medication once during the shift for foot pain, see EMR. Breathing remained even and unlabored with intermittent coughing, R/A. Cardiac monitoring in place, sinus rhythm. VSS, medications crushed in applesauce, tolerated well. Using the urinal in bed, clear yellow urine output. Needs addressed and safety measures taken.
[2023-10-24 05:58] LABS: Bun/Creatinine Ratio 13.2 (12.0-20.0); Calcium, Blood 7.4 mg/dL (8.5-10.1); Creatinine, Blood 1.06 mg/dL (0.60-1.20); Phosphorus, Blood 2.4 mg/dL (2.5-4.9); Potassium, Blood 3.8 mmol/L (3.5-5.5)
[2023-10-24 07:29] VITALS: BP 114/57
[2023-10-24] MEDS ORDERED: K-Phos Origina500 MG PO (12:10)
[2023-10-24] MEDS ORDERED: MELA3 PO (12:10)
[2023-10-24] MEDS ORDERED: HUMALOG JU100 UNIT/2 SC (12:11)
--- NOTE | 2023-10-24 16:15 | NUR ---
PATIENT D/C'D TO HOME VIA W/C TRANSPORT. DC INSTRUCTIONS AND EDUCATION DISCUSSED WITH PATIENT AND COPY PROVIDED. RX MEDICATIONS FAXED TO [facility]. PATIENT DENIES ANY FURTHER QUESTIONS OR CONCERNS.
== END 2023-10-24 16:02 | disposition home or self-care (01) | DRG 871 ==
LOC: ER 12:24 → ICUE 15:07 → MEDS 15:07 → ICUE 16:29 → MEDS 10-22 19:10 → ENPENDDIS 10-24 11:41 → MEDS 10-24 16:02
PROVIDERS: Emergency Medicine; Hospitalist; Internal Medicine; ADMIT Internal Medicine
DX: A41.89 Other specified sepsis (principal); E11.00 Type 2 diabetes mellitus with hyperosmolarity without nonketotic hyperglycemic-hyperosmolar coma (NKHHC); G92.8 Other toxic encephalopathy; J96.01 Acute respiratory failure with hypoxia; N17.9 Acute kidney failure, unspecified; N39.0 Urinary tract infection, site not specified; E87.20 Acidosis, unspecified; E87.0 Hyperosmolality and hypernatremia; R65.20 Severe sepsis without septic shock; E86.0 Dehydration; I48.0 Paroxysmal atrial fibrillation; E83.39 Other disorders of phosphorus metabolism; R13.12 Dysphagia, oropharyngeal phase; J44.9 Chronic obstructive pulmonary disease, unspecified; I10 Essential (primary) hypertension; F03.90 Unspecified dementia, unspecified severity, without behavioral disturbance, psychotic disturbance, mood disturbance, and anxiety; F17.210 Nicotine dependence, cigarettes, uncomplicated; F15.10 Other stimulant abuse, uncomplicated; E11.51 Type 2 diabetes mellitus with diabetic peripheral angiopathy without gangrene; E87.6 Hypokalemia; Z79.4 Long term (current) use of insulin; Z91.030 Bee allergy status; Z89.512 Acquired absence of left leg below knee; Z89.421 Acquired absence of other right toe(s); Z88.0 Allergy status to penicillin
CPT/HCPCS: 36415; 51702; 71045; 74230; 80048; 80053; 80069; 81001; 82803; 82947; 83605; 83735; 83880; 83930; 84100; 85025; 87040; 87077; 87086; 87186; 92526; 92610; 92611; 93005; 93010; 94640; 94664; 94760; 94762; 96361-59; 96365-59; 96375-59; 97110; 97161; 97165; 97530; 97535; 99285-25; A9270; C1751; C9113; G0480; J0696; J1170; J1650; J1815; J2405; J2597; J3480; J7030; J7060; J7070; J7120

== ENCOUNTER 2023-10-31 07:52 | Inpatient (IN) | payer MEDICARE ==
[~2023-10-31] VITALS: Ht 157.5 cm; Wt 56.7 kg
[~2023-10-31 07:52] MED LIST changes: +HUMALOG JU100 UNIT/2 SC; +K-Phos Origina500 MG PO
[2023-10-31 08:15] LABS: BASOPHILS ABSOLUTE AUTO 0.03 K/mm3 (0.00-0.23); BASOPHILS PERCENT AUTO 0 % (0-2); Hematocrit 35.3 % (37.0-53.0); Hemoglobin 10.4 g/dL (13.5-17.5); LYMPHOCYTES ABSOLUTE AUTO 2.38 K/mm3 (0.84-5.20); LYMPHOCYTES PERCENT AUTO 14 % (21-46); MONOCYTES ABSOLUTE AUTO 0.35 K/mm3 (0.16-1.47); MONOCYTES PERCENT AUTO 2 % (4-13); Mean Corpuscular HGB 30.4 pg (26.0-34.0); Mean Corpuscular HGB Conc 29.5 g/dL (31.5-36.5); Mean Corpuscular Volume 103 fL (80-100); Mean Platelet Volume 12.1 fL (9.1-12.4); NRBC ABSOLUTE 0.06 K/mm3 (0.00-0.02); NRBC Auto 0.3 /100 WBC (0.0-0.2); Platelet Count 525 K/mm3 (150-400); RDW Coefficient Variation 14.5 % (11.7-14.2); Red Blood Cell Count 3.42 M/mm3 (4.30-5.90); White Blood Cell Count 17.39 K/mm3 (4.00-11.30)
[2023-10-31 08:16] LABS: EOSINOPHILS PERCENT AUTO 0 % (0-6); IMMATURE GRAN ABSOLUTE AUTO 0.07 K/mm3 (0.00-0.10); IMMATURE GRAN PERCENT AUTO 0 % (0-1); NEUTROPHILS ABSOLUTE AUTO 14.56 K/mm3 (1.96-9.15); NEUTROPHILS PERCENT AUTO 84 % (41-73)
[2023-10-31 08:50] LABS: Beta-hydroxybutyrate 42.4 mg/dL (0.2-2.8)
[2023-10-31 08:58] LABS: Albumin, Blood 1.8 g/dL (3.4-5.0); Albumin/Globulin Ratio 0.4 (0.8-1.8); Bilirubin, Total 0.3 mg/dL (0.1-1.0); Bun/Creatinine Ratio 55.7 (12.0-20.0); Calcium, Blood 8.7 mg/dL (8.5-10.1); Creatinine, Blood 1.74 mg/dL (0.60-1.20); Globulin, Blood 4.5 g/dL (2.2-4.0); Potassium, Blood 4.5 mmol/L (3.5-5.5); Total Protein, Blood 6.3 g/dL (6.4-8.2)
[2023-10-31 09:41] LABS: Base Excess Venous -4.8 mmol/L; Bicarbonate Venous 20.1 mmol/L (24.0-30.0); pH Blood Venous 7.23 (7.34-7.37)
[2023-10-31 10:50] VITALS: BP 82/55
== END 2023-10-31 13:24 | DRG 640 ==
LOC: ER 07:52 → ERHOLD 10:05 → EDBEDREQSVC 10:38 → ERHOLD 13:24
PROVIDERS: Emergency Medicine; ADMIT Hospitalist
DX: R62.7 Adult failure to thrive (principal); E11.10 Type 2 diabetes mellitus with ketoacidosis without coma; I21.4 Non-ST elevation (NSTEMI) myocardial infarction; G93.41 Metabolic encephalopathy; Z66 Do not resuscitate; Z51.5 Encounter for palliative care; J44.9 Chronic obstructive pulmonary disease, unspecified; I95.9 Hypotension, unspecified; R68.0 Hypothermia, not associated with low environmental temperature; R09.02 Hypoxemia; I10 Essential (primary) hypertension; E11.51 Type 2 diabetes mellitus with diabetic peripheral angiopathy without gangrene; F15.91 Other stimulant use, unspecified, in remission; Z95.820 Peripheral vascular angioplasty status with implants and grafts; Z89.512 Acquired absence of left leg below knee; Z88.0 Allergy status to penicillin; Z79.4 Long term (current) use of insulin; Z89.421 Acquired absence of other right toe(s); Z68.22 Body mass index [BMI] 22.0-22.9, adult
CPT/HCPCS: 80053; 82010; 82803; 83605; 84484; 85025; 93005; 93010; 96360; 96361; 99285-25; A9270; J7030